=== PATIENT | female | born 1970 | race Caucasian/White ===

== ENCOUNTER 2016-11-04 10:17 | Inpatient (IN) ==
[2016-11-04] MEDS ORDERED: ZOFRAN IV ONE (10:44)
[2016-11-04] MEDS ORDERED: NS 1,000 ML IV ONE (10:44)
[2016-11-04 11:24] LABS: BASO% 0.1 % (0.0-0.8); EOS# 0.01 X1000 (0.0-0.7); EOS% 0.1 % (0.0-10.0); HEMOGLOBIN 7.8 g/dL (12.0-16.0); LYMPH# 0.17 X1000 (1.2-3.4); LYMPH% 2.1 % (20.5-51.1); MANUAL DIFF NEEDED? NO; MCH 24.8 PG (27-31); MCV 82.8 FL (81-99); MONO# 0.13 X1000 (0.11-0.59); MONO% 1.6 % (1.7-9.3); MPV 9.9 FL (7.4-10.4); NEUT% 96.1 % (42.2-75.2); PLT 266 X1000 (130-400); RBC 3.14 XMIL (4.2-5.4)
[2016-11-04 11:34] LABS: INR 1.28; PROTIME 13.6 Seconds (9.2-11.7)
[2016-11-04 11:42] LABS: CALCIUM 8.8 mg/dL (8.8-10.2); POTASSIUM 3.9 mmol/L (3.5-5.1); TOTAL BILIRUBIN 0.85 mg/dL (0.20-1.00); TOTAL PROTEIN 8.7 g/dL (6.3-8.3)
--- NOTE | 2016-11-04 12:05 | PROVIDER DOCUMENTATION ---
This chart was entered by Olayinka Menchaca Scribe, acting as scribe for Litzy Montano Jr, MD. HPI-General Adult - General Chief Complaint: Nausea/Vomiting Stated Complaint: VOMITING,NAUSEA,FOOT PAIN,CHILLS Time Seen by Provider: 11/04/16 10:27 Source: patient Allergies/Adverse Reactions: Patient Allergies Allergy/AdvReac Type Severity Reaction Status Date / Time vancomycin Allergy Intermediate NAUSEA/VOMI Verified 11/04/16 10:44 TING ciprofloxacin [From Cipro] Allergy Unknown NAUSEA/VOMI Verified 11/04/16 10:44 TING ciprofloxacin HCl * Allergy Unknown NAUSEA/VOMI Verified 11/04/16 10:44 [From Cipro] TING Home Medications: Home Medication List Medication Instructions Recorded Confirmed Last Taken Type Furosemide [Lasix] 40 mg PO DAILY 04/09/12 11/04/16 09/19/15 History Atenolol 50 mg PO DAILY 12/02/13 11/04/16 09/19/15 History Gabapentin [Neurontin] 0.5 - 1 mg PO HS 07/24/16 11/04/16 Unknown History Insulin Aspart [Novolog Flexpen] 1 unit SQ DIRECTED 07/24/16 11/04/16 Unknown History Insulin Glargine,Hum.rec.anlog 100 unit SQ AC + 07/24/16 11/04/16 Unknown History [Lantus Solostar] Pantoprazole [Protonix] 40 mg PO DIRECTED 07/24/16 11/04/16 Unknown History - History of Present Illness -Gen Adult Nature of Presenting Problems: patient is a 45 y/o F that presents to the ER with n/v and chills x 3 days. patient was in nuclear med getting outpatient bone scan on right foot when she vomited. patient denies fever, shortness of breath, or abdominal pain. She is under treatment for her diabetic foot by Dr.T Mendez Location of Pain/Injury: reports: generalized Quality of Pain: reports: aching Severity: reports: moderate Onset/Duration: reports: gradual, 3 days ago Timing: reports: still present, constant Context/Activities at Onset: reports: none Modifying Factors: improves with: nothing Associated Symptoms: reports: fever/chills, nausea, vomiting, weakness. denies : chest pain, cough, diarrhea, genitourinary problems, shortness of breath Similar Symptoms Previously?: No Recently seen or treated by another doctor?: Yes Review of Systems - Adult - REVIEW OF SYSTEMS - ADULT Constitutional: reports: chills. denies: fever Eyes: reports: no symptoms reported Ears, Nose, Mouth & Throat: reports: no symptoms reported Cardiovascular: denies: chest pain, orthopnea, palpitations, syncope Respiratory: denies: cough, shortness of breath, wheezing Gastrointestinal: reports: nausea, vomiting. denies: abdominal pain, constipation, diarrhea, rectal bleeding Genitourinary: denies: dysuria, frequency, hematuria Musculoskeletal: reports: muscle aches, muscle weakness Integumentary: reports: skin sores/ulcer. denies: mole changes, nail changes Neurological: reports: no symptoms reported Psychiatric: reports: no symptoms reported Endocrine: reports: no symptoms reported Hematologic/Lymphatic: reports: no symptoms reported Allergic/Immunologic: reports: no symptoms reported All Other Systems: Reviewed and Negative Past History - Adult - PAST MEDICAL HISTORY-ADULT Review of Records: reports: Old Records Reviewed, Nursing Assessment Review, Medications Reviewed Cardiovascular: reports: CHF, HTN, hyperlipidemia Respiratory: reports: COPD, sleep apnea Gastrointestinal: reports: GERD Genitourinary: reports: kidney disease Musculoskeletal: reports: chronic pain Endocrine/Immune: reports: Diabetes Diabetes Type: Type 2 Diabetes controlled by:: Insulin Dependent - PRIOR SURGERIES/PROCEDURES Surgical/Procedure History: reports: hysterectomy, BTL, - IMMUNIZATION STATUS Childhood Immunizations: See Nurse Assessment Flu Vaccine: See Nurse Assessment - FAMILY HISTORY Family History: reviewed, not pertinent - SOCIAL HISTORY Smoking: non-smoker Living Situation: family Physical Exam-General - PHYSICAL EXAM-ADULT Exam Limited by: morbid obesity Initial Vital Signs Reviewed: Yes - CONSTITUTIONAL General Appearance: alert, mild distress, obese - EYES Eyes: PERRL/EOMI, pink conjunctivae - HEAD, EARS, NOSE, MOUTH & THROAT HENMT: normocephalic/atraumatic, moist mucous membranes, normal ENT inspection - NECK Neck: full range of motion, normal inspection - RESPIRATORY Respiratory: lungs clear, normal breath sounds, no respiratory distress, no accessory muscle use - CARDIOVASCULAR Cardiovascular: regular rate, rhythm, no edema, no murmur - GASTROINTESTINAL (ABDOMEN) Abdominal Exam: normal bowel sounds, non tender, soft, no organomegaly, no pulsatile mass - MUSCULOSKELETAL Back Exam: no CVA tenderness, no vertebral tenderness Extremity: no pedal edema, no calf tenderness - SKIN Integumentary: warm/dry, other (diabetic foot ulcer to right foot( heel), wound is to the bone and has foul smell 4x4xcm) - NEUROLOGIC Neurologic: transplant surgeon II-XII nml as tested, no motor/sensory deficits - PSYCHIATRIC Psych/Mental Status: normal mood/affect, normal thought content, normal thought process, oriented x 3 Progress - PLAN OF CARE/RESULTS Progress/Plan/Lab Results: Vital Signs - 8 hr 11/04/16 10:22 Temperature 98.1 F Pulse Rate 81 Respiratory Rate 20 Blood Pressure 137/73 O2 Sat by Pulse Oximetry 98 Prior to patient arrival, spoke with Dr.T Mendez regarding patient, he would like her admitted to hospital by her PCP or Hospitalist. Orders Category Date Time Status 3 PHASE BONE SCAN [NM] Routine Exams 11/04/16 10:48 Ordered FLAT/UPRIGHT ABD/1 VIEW CHEST [RAD] Stat Exams 11/04/16 11:55 Ordered C REACTIVE PROT QUANT [CHEM] Stat Lab 11/04/16 11:05 Results CBC WITH ELECTRONIC DIFF [HEME] Stat Lab 11/04/16 11:05 Completed COMPREHENSIVE METABOLIC PANEL [CHEM] Stat Lab 11/04/16 11:05 Results LACTATE, PLASMA [CHEM] Stat Lab 11/04/16 10:44 Uncollected PROTIME WITH INR [COAG] Stat Lab 11/04/16 11:05 Completed 0.9% Sodium Chloride Inj [Ns] 1,000 ml Med 11/04/16 10:44 Discontinued IV 999 mls/hr Ondansetron [Zofran] Med 11/04/16 10:44 Discontinued 4 mg IV NOW ONE Vital Signs Temp Pulse Resp BP Pulse Ox 11/04/16 10:22 98.1 F 81 20 137/73 98 vancomycin Allergy (Intermediate, Verified 11/04/16 10:44) NAUSEA/VOMITING ciprofloxacin [From Cipro] Allergy (Unknown, Verified 11/04/16 10:44) NAUSEA/VOMITING ciprofloxacin HCl * [From Cipro] Allergy (Unknown, Verified 11/04/16 10:44) NAUSEA/VOMITING Furosemide [Lasix] 40 mg PO DAILY 04/09/12 Atenolol 50 mg PO DAILY 12/02/13 Gabapentin [Neurontin] 0.5 - 1 mg PO HS 07/24/16 Insulin Aspart [Novolog Flexpen] 1 unit SQ DIRECTED 07/24/16 Insulin Glargine,Hum.rec.anlog [Lantus Solostar] 100 unit SQ AC + HS 07/24/16 Pantoprazole [Protonix] 40 mg PO DIRECTED 07/24/16 Laboratory 11/04/16 11/04/16 11/04/16 11:05 11:05 11:05 WBC 8.01 RBC 3.14 L Hgb 7.8 L Hct 26.0 L MCV 82.8 MCH 24.8 L MCHC 30.0 L RDW Std Deviation 16.4 H Plt Count 266 MPV 9.9 Immature Gran % (Auto) 0.0 Neut % (Auto) 96.1 H Lymph % (Auto) 2.1 L [place] % (Auto) 1.6 L Eos % (Auto) 0.1 Baso % (Auto) 0.1 Immature Gran # (Auto) 0.00 Neut # (Auto) 7.69 H Lymph # (Auto) 0.17 L [place] # (Auto) 0.13 Eos # (Auto) 0.01 Baso # (Auto) 0.01 PT 13.6 H INR 1.28 Sodium 132 L Potassium 3.9 Chloride 94 L Carbon Dioxide 19 L Anion Gap 19 BUN 66 H Creatinine 3.1 H Estimated GFR/1.73 m2 16 BUN/Creatinine Ratio 21 Glucose 181 H Calculated Osmolality 288 Calcium 8.8 Total Bilirubin 0.85 AST 13 ALT 12 Alkaline Phosphatase 99 Total Protein 8.7 H Albumin 3.0 L Globulin 5.7 Albumin/Globulin Ratio 0.5 Result Diagrams: 11/04/16 11:05 11/04/16 11:05 - CONSULTS/PCP/HOSPITALIST Notification #1 *Consult/PCP/Hospitalist*: Time Discussed: 11:57 Consult Disposition: Admit Departure - Departure Time of Disposition Decision: 12:03 DIAGNOSIS: Chills, Weakness Diabetic foot ulcer Qualifiers: Diabetic foot ulcer location: heel Diabetes mellitus type: type 2 Laterality: right Non-pressure ulcer stage: with necrosis of bone Qualified Code(s): E11.621 - Type 2 diabetes mellitus with foot ulcer; L97.414 - Non-pressure chronic ulcer of right heel and midfoot with necrosis of bone Nausea & vomiting Qualifiers: Vomiting type: unspecified Vomiting Intractability: unspecified Qualified Code( s): R11.2 - Nausea with vomiting, unspecified Morbid obesity Qualifiers: Obesity type: unspecified obesity type Qualified Code(s): E66.01 - Morbid ( severe) obesity due to excess calories Disposition: ADMITTED INPATIENT 09 Certified Medical Emergency: Emergent Condition: Stable Referrals and Follow-Ups: Michele Ravi MD [Primary Care Provider] - - Critical Care Note This patient required my direct & personal management of CC.: No This chart was documented by the indicated scribe, (Olayinka Menchaca, Scribe) and accurately reflects the services I performed and decisions made by me, Litzy Montano Jr, MD, as attested by the provider's signature.
[2016-11-04] MEDS ORDERED: KEFZOL 1 GM/D5W 1 GM/50 ML IVPB IV SCH (13:00)
--- NOTE | 2016-11-04 13:27 | Diag Imaging Result Document ---
PROCEDURE NAME: FLAT/UPRIGHT ABD/1 VIEW CHEST - 11/04/2016 FLAT AND UPRIGHT ABDOMEN: FINDINGS: The bowel gas pattern is unremarkable. The spleen appears enlarged measuring over 19 cm in superior inferior dimension. It appears to have increased since the previous study of 03/07/2016 from over 15 cm previously. IMPRESSION: Worsening splenomegaly. AP CHEST: FINDINGS: The inspiration is suboptimal. Overall, considering differences in inspiration and technique there has been no significant change since the previous study of 03/07/2016. There has been no significant change since 07/24/2016. IMPRESSION: Stable chest.
[2016-11-04 14:32] LABS: IRON SATURATION 11 %; TIBC 139 ug/dL; TOTAL IRON 15 ug/dL (49-151); UNBOUND IRON 124 ug/dL (112-346)
--- NOTE | 2016-11-04 15:21 | Diag Imaging Result Document ---
PROCEDURE NAME: 3 PHASE BONE SCAN - 11/04/2016 THREE-PHASE BONE SCAN: The patient was injected with 25.9 mCi of technetium-99m MDP and 3-phase scanning was performed over the feet. There is increased flow activity to the right foot with particularly increased activity in the tarsometatarsal region. There is also some increased activity present in the tarsometatarsal region of the left foot. The same pattern is repeated on the static bone images. There is particularly intense increased radiotracer accumulation at the base of the 5th metatarsal extending to some degree of the shaft. Given the appearance on the plain radiographs of 10/24/2016, it is very likely that this is due to osteomyelitis. In addition, there is some increased static bone activity present in the plantar surface of the right calcaneus which may be due to plantar fasciitis. The possibility of localized osteomyelitis in this area cannot be excluded particularly given the presence of an ulcer in this location. None of these findings were present on the previous study of 12/24/2011. IMPRESSION: Findings suspicious for osteomyelitis in the bases of the metatarsal of the right foot, particularly the 5th metatarsal.
[2016-11-04] MEDS ORDERED: TYLENOL PO PRN (15:37)
[2016-11-04] MEDS ORDERED: DUONEB (A & A) INH PRN (15:37)
[2016-11-04 16:02] LABS: URINE SOURCE CLEAN CATCH
[2016-11-04 16:08] LABS: BILIRUBIN URINE NEGATIVE (NEGATIVE); BLOOD URINE MODERATE (NEGATIVE); COLOR YELLOW; GLUCOSE URINE NEGATIVE (NEGATIVE); LEUKOCYTES URINE TRACE (NEGATIVE); NITRITE URINE NEGATIVE (NEGATIVE); PROTEIN URINE 70 mg/dL (NEGATIVE); SP GRAVITY URINE 1.015; TURBIDITY URINE HAZY (CLEAR); UR EPITHELIAL CELLS >10 /HPF (<10); URINE BACTERIA 1+ /HPF; URINE CULTURE NEEDED? YES; URINE MICRO REVIEW NEEDED? YES; URINE RBC TNTC /HPF (<10); URINE WBC <10 /HPF (<10); UROBILINOGEN URINE NORMAL (NORMAL)
[2016-11-04] MEDS: HUMULIN R SUBQ SCH ×2 (17:44→22:39)
[2016-11-04] MEDS: CARAFATE LIQUID PO SCH ×2 (17:49→22:40)
[2016-11-04] MEDS: NS 1,000 ML IV SCH (17:50)
--- NOTE | 2016-11-04 18:19 | HISTORY AND PHYSICAL ---
PRIMARY CARE PROVIDER: Michele Ravi MD CHIEF COMPLAINT: Nausea, vomiting, foot pain, abdominal pain, and chills for 3 days. HISTORY OF PRESENT ILLNESS: Ms. Yolanda Quiros is a 45-year-old, morbidly obese, female with a history of Pickwickian syndrome, congestive heart failure, severe pulmonary hypertension, and type 2 diabetes who presented today for right foot imaging that was ordered by Dr. Castro Mendez. She has been following him for a right heel ulcer that she has had since June of 2016. The foot has a foul smell to it. It is very deep and Stage IV. Imaging has not resulted yet on the right heel. She also complains of right upper and left upper quadrant abdominal pain. She has had vomiting that she states was brown in color but not coffee ground. Over the last 3 days she has had some chills but has not checked to see if she has had a fever. Her white blood cell count is normal. She is afebrile at this time. She does have chronic kidney disease and appears to be mildly dehydrated. We will do a short run of IV fluids. We will reconsult Dr. Mendez to evaluate the right heel, as it does have a foul smell. It appears that in March, she did have a HIDA scan on her gallbladder and apparently there was no filling of the gallbladder. Also the ejection fraction was abnormally low 30s less than 35%, but she continues to have her gallbladder. Abdominal x-ray does show that she has enlarging splenomegaly. Will admit to the medical floor for further work up. PAST MEDICAL HISTORY: Pulmonary hypertension with echocardiogram last being June, showing pulmonary pressure of 47 mmHg and an ejection fraction of 60-65% and normal diastolic function, although in 2013 she did have a pulmonary pressure of 75. Diabetes mellitus type 2, insulin dependent, peripheral neuropathy, history of osteomyelitis of the right 5th metatarsal, chronic kidney disease Stage 3, anemia of chronic disease, hypertension, morbid obesity with Pickwickian syndrome, chronic obstructive pulmonary disease with obstructive sleep apnea. Uses a BiPAP at home. Gastroesophageal reflux disease with irritable bowel, hypertension, and chronic pain syndrome. SURGICAL HISTORY: Ovarian cyst removal, hysterectomy, tubal ligation, right foot incision and drainage, section. SOCIAL HISTORY: Denies tobacco, alcohol, or illicit drug use. FAMILY HISTORY: Denies. REVIEW OF SYSTEMS: Fourteen point review of systems were complete and all were negative, except for those mentioned above history of present illness. ALLERGIES: Vancomycin and ciprofloxacin. HOME MEDICATIONS: Atenolol 50 mg p.o. daily. Lasix 40 mg p.o. daily, Neurontin 600 mg p.o. nightly, NovoLog insulin, Lantus insulin, Protonix p.o. daily. LABORATORY DATA: White blood cells 8000, hemoglobin 7.8, hematocrit 26.0, platelet count 266,000. INR is 1.28. Sodium 132, potassium 3.9, BUN 66, creatinine 3.1, glucose 181, calcium 8.8, bilirubin 0.85. AST 13, ALT 12. CRP is 223. Total protein 8.7, albumin 3.0. IMAGING: Abdominal x-ray; worsening splenomegaly. Chest x-ray; stable chest. Right foot x-ray; pending. PHYSICAL EXAMINATION: VITAL SIGNS: Temperature 98.1 degrees, heart rate 81, respiratory rate 20, blood pressure 137/73, O2 saturation 98% on room air. She is 5 feet, 4 inches tall, 325 pounds. BMI 55.8. GENERAL: Ms. Quiros is a 45-year-old, morbidly obese, female. She is in no acute distress. Able to answer questions appropriately. HEENT: Atraumatic, normocephalic. Pupils equal, round, reactive to light. Extraocular movements intact. Mucous membranes are dry. NECK: Obese. There are no carotid bruits. Unable to assess for neck distention. CARDIOVASCULAR: S1, S2. Regular rate and rhythm. No rubs, gallops, or murmurs. PULMONARY: Clear to auscultation. Bilateral breath sounds. No accessory muscle use or work of breathing noted. GASTROINTESTINAL: Soft, obese. Right upper and left upper quadrant abdominal pain. Positive bowel sounds x4. Last bowel movement today. EXTREMITIES: Obese. +3 dorsalis pedal pulses. Right heel deep tissue ulceration with foul smell. SKIN: Warm, dry, intact, except for right heel. NEUROLOGICAL: Alert and oriented x4. Moves all extremities equally. ASSESSMENT AND PLAN: 1. Right heel diabetic ulcer. Wound care is consulted. Dr. Mendez has been consulted, as he has been following her for outpatient treatment. Her last culture in June was positive for Strep agalactiae. She has been started on Kefzol. Cultures have been obtained. Blood cultures also have been obtained. 2. Abdominal pain with nausea, intractable nausea, vomiting x3 days. She does have right upper and left upper quadrant pain. She has got worsening splenomegaly on the left. There is question as to whether her gallbladder is functional enough. Again, Dr. Mendez has been consulted for the right heel and will ask to followup. Will continue her on Protonix and have started Carafate. 3. Acute kidney injury on chronic kidney disease stage 3. We will do some slow IV fluid hydration, but only carefully given her history of pulmonary hypertension. 4. History of severe pulmonary hypertension. Has stabilized more with the last echocardiogram in June, revealing normal systolic and normal diastolic function with pulmonic systolic pressure of 47 mmHg. 5. Chronic obstructive pulmonary disease with obstructive sleep apnea. Wears CPAP at night. No exacerbation noted. 6. Hypertension. Continue home medications. 7. Hyperlipidemia. Continue home medications. 8. Diabetes mellitus type 2. Continue with sliding scale insulin. Pattern blood glucoses. 9. Morbid obesity with Pickwickian syndrome. Diet discussed. Exercise regimen discussed. Currently she has been wheelchair bound given her right heel ulceration. 10. Anemia of chronic disease. Go ahead and do anemia labs, check stool and emesis for blood given her abdominal pain. 11. Peripheral neuropathy. Continue home medications. 12. Deep venous thrombosis prophylaxis. Will do heparin. Dictated by ARLENE Marshall for Aurelio Schmidt MD cc: ARLENE Marshall MD
[2016-11-04] MEDS: SANTYL OINT TOP SCH (19:00)
[2016-11-04] MEDS: ZOSYN 2.25 GM/NS 2.25 GM/50 ML IVPB IV SCH (19:13)
[2016-11-04] MEDS ORDERED: CUBICIN (FOR INPATIENT USE) 600 MG in NS 100 ML IV SCH (21:45)
[2016-11-04] MEDS: PROTONIX IV SCH (22:40)
[2016-11-04] MEDS: SODIUM CHLORIDE 0.9% INJ SCH (22:40)
[2016-11-04] MEDS: NEURONTIN PO SCH (22:41)
--- NOTE | 2016-11-04 22:50 | CONSULTATION ---
DATE OF CONSULTATION: 11/04/2016 HISTORY OF PRESENT ILLNESS: This is a 45-year-old diabetic female, well known to me. I have been following the right foot wound for several months now. She had been undergoing weekly debridements in the office in the wound clinic for this. We had plans to obtain a bone scan and repeat LEAs today, but she had been feeling ill over the weekend, with some nausea, vomiting, upper abdominal discomfort, and became sick in Nuclear Medicine and was sent to the emergency department for further workup. She has had chills, but no fevers. MEDICAL HISTORY: Diabetes, hypertension, obesity. I believe she has sleep apnea and chronic kidney disease. SURGICAL HISTORY: Negative for peripheral vascular surgery. SOCIAL HISTORY: Nonsmoker. Currently lives at home. Does have I suspect some social situation. She is always relatively unkempt. FAMILY HISTORY: Noncontributory. REVIEW OF SYSTEMS: Ten point negative, except for what is mentioned under HPI. PHYSICAL EXAMINATION: Vital Signs: Her temperature is 98.1 degrees, pulse 81, blood pressure 137/73, oxygen saturation 98% on room air. General: She is alert, in no acute distress. She is 325 pounds, 5 foot 4. HEENT: No scleral icterus. Cardiovascular: Normal rate, regular rhythm. Pulmonary: No increased work of breathing. Abdomen: Soft, nontender, nondistended. Extremities: Right calcaneal wound has beefy granulation tissue around the bed, but there is necrotic tissue in the base. There is no cellulitis extending up her foot, and it is otherwise well-perfused. I do not see any other new wounds on her right foot. There is 2+ lower extremity edema bilaterally. LABORATORY STUDIES: White count 8, hematocrit 26, platelets 266,000. INR is 1.28. Creatinine 3.1, glucose is 181. Bilirubin is normal at 0.85. AST and ALT are normal at 13 and 12. Alkaline phosphatase 99. CRP is elevated at 220. Urinalysis shows some trace leukocytes. Her nuclear medicine bone scan showed some changes concerning for osteomyelitis of the calcaneus and 5th metatarsal head on the same foot. ASSESSMENT AND PLAN: This is a 45-year-old female diabetic with chronic kidney disease, obesity, with a chronic wound, with persistent and recurrent necrosis in the bed of the wound, despite multiple excisional debridements as an outpatient. We plan to go to the operating room tomorrow. She is on antibiotics. I have started Zosyn. She has an allergy to penicillin and Cipro, but we will treat her with Zosyn in the meantime at a renally-dosed dose. I appreciate the hospitalist service for help with management of this patient's other medical issues. Will need to engage Infectious Disease for concerns for osteomyelitis. It is possible that this has been the driving focus for the recurrent necrosis of the wound bed. Unclear what is causing her nausea. She does have a urinary tract infection. I have been told that she has nonfilling on a HIDA scan of her gallbladder. We may need to get a gallbladder ultrasound at some point. Her LFTs are normal right now, and I suspect this is more just systemic illness from her chronic medical problems and diabetic foot infection. We will continue to follow along. cc: Haritha Mendez MD
[2016-11-05] MEDS: ZOSYN 2.25 GM/NS 2.25 GM/50 ML IVPB IV SCH ×4 (00:22→19:21)
[2016-11-05] MEDS: CARAFATE LIQUID PO SCH ×3 (05:54→19:21)
[2016-11-05] MEDS: ZOFRAN IV PRN (06:01)
[2016-11-05] MEDS: HUMULIN R SUBQ SCH ×4 (06:04→21:59)
[2016-11-05 06:33] LABS: HEMATOCRIT 21.8 % (37.0-47.0); HEMOGLOBIN 6.5 g/dL (12.0-16.0); IMM GRAN# 0.03 X1000 (0.0-0.04); IMM GRAN% 0.3 % (0.0-0.5); LYMPH# 0.54 X1000 (1.2-3.4); LYMPH% 5.4 % (20.5-51.1); MANUAL DIFF NEEDED? YES; MCH 24.8 PG (27-31); MCHC 29.8 g/dL (33-37); MCV 83.2 FL (81-99); MONO# 0.58 X1000 (0.11-0.59); MONO% 5.8 % (1.7-9.3); MPV 9.9 FL (7.4-10.4); NEUT% 88.5 % (42.2-75.2); PLT 223 X1000 (130-400); RBC 2.62 XMIL (4.2-5.4)
[2016-11-05 06:58] LABS: BANDS 4 % (0-1); LYMPHS 6 % (21-51)
[2016-11-05 07:10] LABS: ALBUMIN 2.6 g/dL (3.5-5.0); CALCIUM 8.7 mg/dL (8.8-10.2); MAGNESIUM 2.1 mg/dL (1.5-2.7); POTASSIUM 4.1 mmol/L (3.5-5.1); TOTAL BILIRUBIN 0.44 mg/dL (0.20-1.00); TOTAL PROTEIN 7.2 g/dL (6.3-8.3)
[2016-11-05] MEDS: PROTONIX IV SCH ×2 (08:30→21:59)
[2016-11-05] MEDS: SODIUM CHLORIDE 0.9% INJ SCH (08:30)
[2016-11-05] MEDS: TENORMIN PO SCH (08:31)
[2016-11-05] MEDS: SANTYL OINT TOP SCH (08:31)
[2016-11-05] MEDS ORDERED: VERSED ONE (09:21)
[2016-11-05] MEDS ORDERED: KETAMINE (DOSE) ONE (09:22)
[2016-11-05] MEDS ORDERED: MARCAINE 0.25% PF ONE (09:28)
[2016-11-05] MEDS ORDERED: MARCAINE 0.25% PF/EPI 1:200,000 ONE (09:28)
[2016-11-05] MEDS ORDERED: XYLOCAINE 1%/EPI 1:100,000 ONE (09:28)
[2016-11-05] MEDS ORDERED: XYLOCAINE 1% ONE (09:29)
--- NOTE | 2016-11-05 10:11 | PROGRESS NOTE ---
DATE: 11/05/2016 SUBJECTIVE: Feels better. No more nausea or vomiting. No pain in her foot. OBJECTIVE: Vital Signs: Temperature is 97.7 degrees, pulse 61, blood pressure 135/68, oxygen saturation 100% on room air. General: She is alert, in no acute distress. Cardiovascular: Normal rate, regular rhythm. Pulmonary: She is on room air with no increased work of breathing. Extremities: She has dressing in place on her right foot and is clean. There is no cellulitis extending up her legs, but she does have 1+ to 2+ edema in bilateral lower extremities. Those are well perfused. LABS: White count 10, hematocrit is down to 21. INR is 1.28, creatinine is 3.2. Bilirubin 0.44, AST and ALT are 11 and 5, alkaline phosphatase 75. ASSESSMENT/PLAN: This is a 45-year-old female with longstanding right calcaneal diabetic wound. Bone scan shows signs of osteomyelitis and I suspect this is the case given the depth of the wound. She has recurrent necrosis in the bed of the wound despite multiple serial debridements as an outpatient. Will plan to go the operating room today to explore the wound and debride more aggressively, and then will make recommendations as far as wound care going forward. Dr. English had been engaged. She is going to need long-term antibiotics for osteomyelitis. She does have an allergy to vancomycin and Cipro, and I have continued her on Zosyn while here at a renally-dosed level. We will try to repeat her CROW's. The contrast exam is not an option given her renal dysfunction, but her feet seem well perfused on exam. Previous CROW's were limited by the size of her legs and noncompressibility of the vessels. cc: Haritha Mendez MD
[2016-11-05] MEDS ORDERED: OFIRMEV 1000 MG/ISOTONIC SOLN 1,000 MG/100 ML BOTTLE ONE (10:33)
--- NOTE | 2016-11-05 12:09 | OPERATIVE NOTE ---
PROCEDURE DATE: 11/05/2016 DATE OF OPERATION: 11/05/2016. PREOPERATIVE DIAGNOSIS: Necrotic diabetic wound of the right calcaneus. POSTOPERATIVE DIAGNOSIS: Necrotic diabetic wound of the right calcaneus. PROCEDURES PERFORMED: Excisional debridement of right calcaneal wound 4 x 5 cm in transverse dimension, 2 cm deep down to and including the level of the bone. ESTIMATED BLOOD LOSS: 20 mL. SPECIMENS: Necrotic tissue from wound. INDICATIONS: This 45-year-old diabetic female, who is obese with chronic kidney disease has had a longstanding right calcaneal wound. She has undergone multiple debridements as an outpatient of this wound with recurrent necrosis of the bed. Bone scan shows osteomyelitis. She is admitted now for a GI illness and excisional debridement of the wound for source control and to facilitate wound healing was indicated. ANESTHESIA: Monitored intravenous anesthesia. DRAINS: [place] drain left in the deep space of the foot. OPERATIVE FINDINGS: There was necrotic tissue circumferential in the wound bed. There was minimal purulence and healthy bleeding tissue noted after debridement. This extended down to the level of the periosteum of the bone of the calcaneus and into the deep space of the foot through the level of the plantar fascia. OPERATIVE NOTE: Risks, benefits, alternatives discussed with patient. She consented to the procedure. She was seen in the preoperative area and procedure to be performed was confirmed. Surgical site was marked. She was taken to the operating room. Intravenous anesthesia was administered. Her right foot was prepped with Betadine solution. She is on pre incisional scheduled antibiotics, and these were confirmed. After the wound was prepped with Betadine and draped in the usual fashion, a time-out was performed and all agreed on the procedure to be performed. Using a combination of scalpel and scissors, we excised all necrotic tissue back to healthy bone. There is some overlying necrotic tissue of the calcaneus. We used rongeur, forceps and a curette to debride this back circumferential to healthy bone. We sent all the specimen together. We obtained hemostasis with electrocautery. There was an area that probed anterior to the calcaneus through the webbing of the plantar fascia that entered the deep spaces of the foot. There was some scant amount of purulence here. As such, we left a [place] drain in this cavity and secured this wound edge with a 3-0 nylon suture to facilitate ongoing drainage. There is no evidence of necrosis here. After confirming hemostasis, we irrigated the wound. I packed it with a saline Kerlix and a loose Kerlix Mickey wrap. She tolerated it well. Transferred to PACU in good condition. No family was available upon attempts to contact. Will continue IV antibiotics for treatment of osteomyelitis and with severe infection of the diabetic foot wound. cc: Haritha Mendez MD
[2016-11-05] MEDS: NS 1,000 ML IV SCH (12:51)
--- NOTE | 2016-11-05 13:45 | CONSULTATION ---
DATE OF CONSULTATION: 11/05/2016 CONCLUSION: Patient has cellulitis and osteomyelitis of the right foot. RECOMMENDATIONS: Pending culture results, I agree with treating the patient with a combination of daptomycin and Zosyn. I have modified the dose of daptomycin because of the patient's renal failure. The dose of Zosyn already has been modified. PRESENT ILLNESS: The patient tells me that for approximately 3-4 days prior to admission, she was having increasing right foot pain, abdominal pain, nausea, vomiting, fever, and chills. Her laboratory studies show a CBC with a white count of 10,060, hemoglobin 6.5, and platelet count 223,000. Creatinine is 3.2. GFR is 16. Liver function studies are normal. Urinalysis showed red blood cells, but no white cells or bacteria. Gram stain taken from the patient's foot shows Gram-positive cocci and Gram-negative rods. The bone scan showed evidence of osteomyelitis in the foot. PAST MEDICAL HISTORY/REVIEW OF SYSTEMS: HEENT: The patient denies difficulty hearing or seeing. Neck: No stiffness. Respiratory: No cough or shortness of breath. Cardiac: No chest pain or palpitations. Gastrointestinal: No nausea, vomiting, or diarrhea. Neurologic: The patient does have neuropathy in her legs manifested by a pains in both legs. The patient walks with a cane and limps a little bit. Endocrine: Patient has diabetes, but not thyroid disease. Hematologic: No history that the patient is aware of that she has anemia or a bleeding tendency. Integument: No rash noted. The remainder of the patient's review of systems was completed and was negative. 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 She delivered her child by section. Patient has had a tubal ligation. PREVIOUS HOSPITALIZATIONS AND OPERATIONS: She has had an ovarian cyst removed, tubal ligation, and section. The patient has had the surgery on her right foot prior to the current surgery. Patient has had an ovarian cysts removed. The patient has had surgery for right foot metatarsal osteomyelitis. INFECTIOUS DISEASE HISTORY: Positive for breast abscess and a urinary tract infection. Negative for pneumonia. MEDICAL DISEASES: Positive for pulmonary hypertension, diabetes mellitus, peripheral neuropathy, anemia of chronic disease, hypertension, morbid obesity, chronic obstructive pulmonary disease, and sleep apnea. Also, the patient has gastroesophageal reflux disease, irritable bowel, hypertension, and chronic pain syndrome. SOCIAL HISTORY: [place] She does not smoke cigarettes, drink alcoholic beverages, or abuse drugs. DRUG ALLERGIES: The patient has allergies to vancomycin and ciprofloxacin. PHYSICAL EXAMINATION: Vital Signs: Temperature is 97.7 degrees, pulse 66, respirations 14, blood pressure 135/68. The patient weighs 325 pounds. General: This is an obese, middle-aged female. She is in no acute distress. Head, eyes, ears, nose, and throat: She can hear my spoken words and see near objects. No drainage noted from the nose or ears. Neck: No meningismus. Lungs: Clear to auscultation. Cardiovascular: Heart rate is regular. Peripheral pulses in the left foot and the arms were palpable. I was unable to palpate a distal pulse in the patient's right foot because there was a large dressing around the foot and ankle. Abdomen: Soft and nontender. Neurologic: Patient is awake. The patient is lethargic. She can move her extremities. There is no tremor. Her sensation is intact to touch. Integument: No rash noted. HOME MEDICATIONS: Atenolol, Lasix, Neurontin, insulin, and Protonix. Thank you for the consult. cc: Pola English MD
--- NOTE | 2016-11-05 17:20 | PROGRESS NOTE ---
DATE: 11/05/2016 SUBJECTIVE: Ms. Quiros says her head feels kind of fuzzy and otherwise no nausea, no pain. She does not really like the food, is not eating much.Vital signs: Temperature 98.5 degrees, pulse 70, respirations 14, blood pressure 150/72. Lungs: Are clear in all lung berrios. Cardiovascular: Regular rhythm and rate without murmur or S3. Abdomen: Soft. Skin: Is warm and dry. Weight 342 pounds. Urine output has been well over 1.5 L. LAB: White count 10,060, hematocrit 21, platelet count 223,000. Sodium 132, potassium 4.1, chloride 97, BUN 71, creatinine 3.2, blood sugars 259, 267, 238. ASSESSMENT AND PLAN: 1. Patient with cellulitis and osteomyelitis of the right foot. Cultures pending. Patient is treated with combination of daptomycin and Zosyn. Dr. English is follow. Modified the dose of daptomycin because of patient's renal failure. Dose of Zosyn has been already modified. Continue present therapy. 2. She had necrotic diabetic wound of the right calcaneus was debrided by Dr. Mendez. Put her back on diabetic diet. 3. Diabetes mellitus type 2. Will follow blood sugars. She is on a sliding scale. Review of her orders I do not see any change at this point. MEDICATIONS: She is on Zosyn 2.25 mg IV q.6, Carafate 1 g q.6 hours, Protonix 40 mg IV q.12 hours, Zofran 4 mg IV q.4 hours p.r.n., Neurontin 300 mg at bedtime, daptomycin 1 g q.48 hours, Tenormin 50 mg p.o. daily. cc: Fred Ashby MD
[2016-11-05] MEDS: NEURONTIN PO SCH (21:59)
[2016-11-06] MEDS: ZOSYN 2.25 GM/NS 2.25 GM/50 ML IVPB IV SCH ×3 (01:11→12:26)
[2016-11-06] MEDS: CARAFATE LIQUID PO SCH ×4 (04:14→17:27)
[2016-11-06] MEDS: HUMULIN R SUBQ SCH ×4 (06:17→20:25)
[2016-11-06] MEDS: ZOFRAN IV PRN (06:20)
[2016-11-06 06:27] LABS: BASO% 0.4 % (0.0-0.8); HEMATOCRIT 25.6 % (37.0-47.0); HEMOGLOBIN 7.5 g/dL (12.0-16.0); LYMPH# 0.26 X1000 (1.2-3.4); LYMPH% 11.4 % (20.5-51.1); MANUAL DIFF NEEDED? YES; MCH 24.6 PG (27-31); MCHC 29.3 g/dL (33-37); MCV 83.9 FL (81-99); MONO# 0.01 X1000 (0.11-0.59); MONO% 0.4 % (1.7-9.3); MPV 10.5 FL (7.4-10.4); NEUT% 87.8 % (42.2-75.2); PLT 291 X1000 (130-400); RBC 3.05 XMIL (4.2-5.4)
[2016-11-06 06:30] LABS: ALBUMIN 2.8 g/dL (3.5-5.0); CALCIUM 8.8 mg/dL (8.8-10.2); POTASSIUM 3.8 mmol/L (3.5-5.1); TOTAL BILIRUBIN 0.4 mg/dL (0.20-1.00); TOTAL PROTEIN 8.7 g/dL (6.3-8.3)
[2016-11-06 06:49] LABS: BANDS 8 % (0-1); LYMPHS 10 % (21-51); MONO 2 % (1-9)
[2016-11-06 06:50] LABS: HYPOCHROM 2+
[2016-11-06] MEDS: NORCO-7.5 PO PRN ×2 (08:53→15:29)
[2016-11-06] MEDS: TENORMIN PO SCH (08:54)
[2016-11-06] MEDS: SODIUM CHLORIDE 0.9% INJ SCH (08:55)
[2016-11-06] MEDS: PROTONIX IV SCH ×2 (08:55→20:27)
[2016-11-06] MEDS: SANTYL OINT TOP SCH (09:01)
--- NOTE | 2016-11-06 09:53 | PROGRESS NOTE ---
DATE: 11/06/2016 SUBJECTIVE: No more nausea or vomiting. Started to have a little bit of pain in her foot. She says she has had some shortness of breath this morning as well but otherwise no issues. OBJECTIVE: Vital Signs: Temperature is 97.9, pulse 83, blood pressure 143/63, oxygen saturation 100% on 2 L nasal cannula. General: She is alert, no acute distress. Extremities: Her right foot dressing has a minimal amount of drainage on the dressing but otherwise her toes are well perfused without any cellulitis extending up the leg. Laboratory Data: White count down to 2, hematocrit of 25. Creatinine is 2.8 which is down. ASSESSMENT AND PLAN: This is an obese, diabetic lady with a long-standing wound on her right heel and bone scan evidence of osteomyelitis. She admitted with some gastrointestinal duress and was taken yesterday for debridement of her foot. There was no gross purulence here. There was some dark necrotic tissue that was debrided back to healthy bleeding tissue. There was exposed calcaneal bone but it is of relatively good quality. She is on long-term antibiotics. Will need long-term intravenous antibiotics for treatment of osteomyelitis. We will evaluate her wound today and tomorrow, and make plans for possible wound VAC placement if the wound remains clean. We will continue to follow along. I appreciate the medicine service helping with all of her other comorbid conditions. cc: Haritha Mendez MD
--- NOTE | 2016-11-06 16:49 | PROGRESS NOTE ---
DATE: 11/06/2016 CONCLUSION: The patient has cellulitis and osteomyelitis of the right foot. The infection extended to the calcaneus bone. The patient is growing from her right foot 2 gram negative rods. A blood culture is growing coag neg staph which is a contaminant. RECOMMENDATIONS: Pending the results, I have switched the patient to cefepime. She was on daptomycin and Zosyn. I have put in a consult for [facility] to supply the patient's home IV antibiotic. The patient has had difficulties with Cipro in the past, mainly nausea and vomiting, and for an infection like the patient has I feel more comfortable using an IV antibiotic rather than p.o. Cipro. Possibly when she is done with her 6 weeks of IV antibiotics and if she can tolerate Levaquin, I may put her on that for a long period of time because it is extremely difficult to heal heels. PHYSICAL EXAMINATION: Vital Signs: Temperature is 97.8 degrees, pulse 70, respirations 20, blood pressure 152/64. General: This is an obese, middle-aged female who is in no acute distress. Lungs: Clear to auscultation. Cardiovascular: Regular heart rate. Abdomen: Soft and nontender. Extremities: The right foot and ankle had a dressing around them. The dressing is intact. LAB AND X-RAY: There is no new x-ray. The patient's CBC today showed a white count of 2,290, hemoglobin is 7.5, and platelet count is 291,000. Creatinine is 2.8. GFR is 18. There is no new x-ray for today. Previous bone scan did show osteomyelitis as well. ASSESSMENT AND PLAN: The patient has a gram-negative jose cruz infection involving the right foot, extending to the calcaneus; therefore, by definition, she has osteomyelitis of the calcaneus. I plan to ask Dr. Mendez to put in a Patel catheter rather than a PICC because the patient's kidney function is such that she may need hemodialysis at some time and it would be better to avoid using her arm veins for that reason. I have put in a consult for [facility] to supply the patient's home IV cefepime. The patient's comorbidities include she has morbid obesity, she has diabetes mellitus, and peripheral neuropathy. Patient also has COPD and sleep apnea. cc: Pola English MD [facility]
[2016-11-06] MEDS: MAXIPIME 1 GM/NS 1 GM/50 ML IVPB IV SCH (17:18)
[2016-11-06] MEDS: NEURONTIN PO SCH (20:27)
[2016-11-06] MEDS ORDERED: CUBICIN IV SCH (23:00)
[2016-11-06] MEDS ORDERED: NS IV SCH (23:00)
[2016-11-07] MEDS: CARAFATE LIQUID PO SCH ×4 (00:01→19:43)
--- NOTE | 2016-11-07 03:38 | PROGRESS NOTE ---
DATE: 11/06/2016 ADDENDUM: Dr. Mendez just removed the patient's dressing from her heel. There is still an odor to the heel; however, the tissue in the wound all looks beefy red. I did not see any purulence and I did not see any necrotic tissue. The wound does extend down to the calcaneus. It is easily palpated. cc: Pola English MD
[2016-11-07] MEDS: HUMULIN R SUBQ SCH ×4 (06:12→20:24)
[2016-11-07] MEDS: MAXIPIME 1 GM/NS 1 GM/50 ML IVPB IV SCH ×2 (06:12→19:48)
[2016-11-07 07:35] LABS: BASO% 0.1 % (0.0-0.8); EOS# 0.02 X1000 (0.0-0.7); EOS% 0.2 % (0.0-10.0); HEMATOCRIT 21.7 % (37.0-47.0); HEMOGLOBIN 6.3 g/dL (12.0-16.0); IMM GRAN# 0.02 X1000 (0.0-0.04); IMM GRAN% 0.2 % (0.0-0.5); LYMPH# 0.58 X1000 (1.2-3.4); MANUAL DIFF NEEDED? YES; MCH 24.4 PG (27-31); MCV 84.1 FL (81-99); MONO# 0.38 X1000 (0.11-0.59); MONO% 4.6 % (1.7-9.3); MPV 10.4 FL (7.4-10.4); NEUT% 87.9 % (42.2-75.2); PLT 219 X1000 (130-400); RBC 2.58 XMIL (4.2-5.4)
[2016-11-07 08:16] LABS: ALBUMIN 2.7 g/dL (3.5-5.0); CALCIUM 8.6 mg/dL (8.8-10.2); POTASSIUM 3.7 mmol/L (3.5-5.1); TOTAL BILIRUBIN 0.35 mg/dL (0.20-1.00); TOTAL PROTEIN 7.5 g/dL (6.3-8.3)
[2016-11-07 08:41] LABS: LYMPHS 4 % (21-51); MONO 6 % (1-9)
[2016-11-07] MEDS: TENORMIN PO SCH (08:42)
[2016-11-07] MEDS: SANTYL OINT TOP SCH (09:41)
--- NOTE | 2016-11-07 10:24 | PROGRESS NOTE ---
DATE: 11/07/2016 SUBJECTIVE: No pain in her foot. No other breathing or GI problems. Dressing changes are going well. OBJECTIVE: Temperature is 97.5, pulse 64, blood pressure 147/69, O2 saturation 100% on room air. General: She is alert, in no acute distress. Right ankle dressings with minimal serosanguineous drainage on dressing. We examined the wound yesterday afternoon and it was granulating well. There is no other necrosis. There was stable exposure of the calcaneus and the base of the wound but this seemed viable and healthy. Neck: is very large and redundant but no scars noted. White count is 8, hematocrit is 21, creatinine is 2.9, glucose is 308. Blood cultures from 11/04/2010, one out of the set shows Coag-negative Staph felt to be contaminant by Dr. English, and the wound cultures show Providencia rettgeri and Pseudomonas. Repeat blood cultures from yesterday are preliminarily negative. ASSESSMENT AND PLAN: This is a 45-year-old female with osteomyelitis and a severe diabetic foot wound of the right calcaneus. Dr. English plans care home antibiotics. She has chronic kidney disease and PICC line is not an option. We discussed risks, benefits, alternatives including bleeding, infection, damage to other structure, pneumothorax and arterial injury. If she consents to Patel catheter placement today, we place it this morning. Otherwise, from a surgical standpoint, I do not plan on further debridement and will place a wound VAC. I spoke with the Denisha Miller about this, and I think she is near ready for discharge once all this is arranged. She needs IV antibiotics for osteomyelitis, wound VAC for the wound, and home health for Patel catheter care. cc: Haritha Mendez MD [facility]Paul
--- NOTE | 2016-11-07 13:55 | PROGRESS NOTE ---
DATE: 11/07/2016 SUBJECTIVE: She feels better. No complaints. She is going to get her venous access I think today. OBJECTIVE: Vital signs: Temp 97.5 degrees, pulse 64, respirations 20, blood pressure 147/69. Lungs: Clear in all lung berrios. Cardiovascular: Regular rhythm and rate without murmur or S3. Abdomen: Soft. Skin: Warm and dry. : Good urine output. LAB: White count 8,310, hematocrit 21 with a hemoglobin of 6.3, platelet count 219,000. Chemistry: Sodium 132, potassium 3.7, chloride 98, bicarb 22, BUN 72, creatinine 2.9. Blood sugar 308, 257, 287. ASSESSMENT AND PLAN: 1. Osteomyelitis, severe diabetic foot wound of the calcaneus. Will need long-term antibiotics. He has chronic kidney disease and PICC line is not an option. Discuss risks, benefits, and alternatives and Dr. Mendez is planning on placing a Patel catheter. 2. Continue current antibiotics for osteomyelitis. Has gram-negative per culture. 3. Diabetes mellitus type 2. 4. Approaching end-stage renal disease. REVIEW OF LABS: I do not see much change. cc: Fred Ashby MD
[2016-11-07] MEDS ORDERED: NS 1,000 ML ONE (14:35)
[2016-11-07] MEDS ORDERED: HEPARIN ONE (14:35)
[2016-11-07] MEDS ORDERED: XYLOCAINE 1%/EPI 1:100,000 ONE (14:35)
[2016-11-07] MEDS ORDERED: KETAMINE (DOSE) ONE (16:15)
[2016-11-07] MEDS ORDERED: VERSED ONE (16:15)
[2016-11-07] MEDS ORDERED: LR 1,000 ML ONE (16:30)
[2016-11-07] MEDS ORDERED: EXTENSION SET 32 IN 4522 ONE (16:30)
[2016-11-07] MEDS ORDERED: ANESTHESIA PB SET 88 IN 5742 ONE (16:30)
[2016-11-07] MEDS ORDERED: ROBINUL ONE (16:30)
[2016-11-07] MEDS ORDERED: MORPHINE ONE (16:37)
--- NOTE | 2016-11-07 16:54 | Diag Imaging Result Document ---
PROCEDURE NAME: CHEST-PORTABLE - 11/07/2016 AP PORTABLE CHEST DATED AT 1615 HOURS: FINDINGS: The inspiration is suboptimal. The heart size is enlarged. Compared to 11/04/2016, there has been no significant change in the appearance of the chest. IMPRESSION: Stable chest.
[2016-11-07] MEDS: PROTONIX IV SCH ×3 (19:40→20:22)
--- NOTE | 2016-11-07 19:59 | OPERATIVE NOTE ---
PROCEDURE DATE: 11/07/2016 PREOPERATIVE DIAGNOSIS: Osteomyelitis. POSTOPERATIVE DIAGNOSIS: Osteomyelitis. PROCEDURES PERFORMED: 1. Aborted right internal jugular vein Patel catheter placement, ultrasound-guided. 2. Fluoroscopy less than 1 hour. ESTIMATED BLOOD LOSS: 25 mL. INDICATION: This is a 45-year-old female with chronic kidney disease who has osteomyelitis and need for long-term outpatient antibiotics. Tunneled Patel catheter is indicated for antibiotics OPERATIVE FINDINGS: Focused ultrasound of the right neck showed a very deep, but compressible internal jugular vein. Otherwise, normal vascular anatomy with forward flow. No evidence of intraluminal thrombus. Fluoroscopic exam showed ability to reach the right side of the heart with the guidewire. OPERATIVE NOTE: Risks, benefits, alternatives discussed with the patient. She consented to the procedure. She was taken to the operating room, placed in supine position. Monitored IV anesthesia was administered. Bilateral neck and chest were prepped with Betadine solution and draped in usual fashion. After time-out was performed, we used an ultrasound and under ultrasound guidance, we injected local anesthetic down to level of the internal jugular vein. Skin beth was made with 11 blade scalpel. A pink introducer needle was used to access the right internal jugular vein. It was very deep and required the entire length of the needle to access this, but we were able to safely obtain nonpulsatile venous blood. We passed a wire. There was some resistance initially curved towards the head, but we were able to reposition and get this to go down the right side of the heart. Due to the short and very wide deep nature of her vessel, the wire took almost a 90 degrees angle as it entered the vein. We then tunneled initially a [place] catheter that was 8-Kazakh up to the neck. We placed a peel-away dilator introducer sheath under fluoroscopic guidance. However, due to the acute angulation, we were unable to get the [place] 8- Kazakh to pass, and then tunneling the catheter required a counterincision midway through due to the size of her neck and inability to complete the tunnel due the redundant subcutaneous and panniculus tissue here. We then re-attempted the line placement with a new wire and a Patel catheter which was 9.5 [place]. We accessed the vein with the pink introducer needle with ultrasound guidance, past the wire which threaded in the right atria of the heart easily. We then tunneled the catheter up to the level of the incision in the neck from a counterincision and another incision in the chest. Then using a 10-Kazakh peel-away dilator introducer, we passed this under fluoroscopic guidance. We removed the wire and the dilator, but the Patel again would not pass due to the 90 degree turn as it entered the vein due to the size of her neck. As such, we aborted this. We did not feel a subclavian line given the angles we were facing was beneficial and would subject her to risk of pneumothorax which would be a big deal in this lady, so we aborted. We will plan to place a PICC line despite her creatinine in the future. We will obtain a chest x-ray in the PACU. Overall, she tolerated the procedure okay. There is no identified complication. cc: Haritha Mendez MD
[2016-11-07] MEDS: NEURONTIN PO SCH (20:22)
[2016-11-07] MEDS: NORCO-7.5 PO PRN (23:56)
[2016-11-08] MEDS: ZOFRAN IV PRN ×3 (00:01→13:59)
[2016-11-08] MEDS: CARAFATE LIQUID PO SCH ×4 (04:47→21:28)
[2016-11-08] MEDS: MAXIPIME 1 GM/NS 1 GM/50 ML IVPB IV SCH ×2 (05:49→21:36)
[2016-11-08] MEDS: HUMULIN R SUBQ SCH ×4 (06:01→21:26)
[2016-11-08 07:37] LABS: BASO% 0.2 % (0.0-0.8); EOS# 0.16 X1000 (0.0-0.7); EOS% 1.3 % (0.0-10.0); HEMATOCRIT 19.9 % (37.0-47.0); HEMOGLOBIN 5.9 g/dL (12.0-16.0); IMM GRAN# 0.05 X1000 (0.0-0.04); IMM GRAN% 0.4 % (0.0-0.5); LYMPH# 0.83 X1000 (1.2-3.4); LYMPH% 6.9 % (20.5-51.1); MANUAL DIFF NEEDED? YES; MCH 24.8 PG (27-31); MCHC 29.6 g/dL (33-37); MCV 83.6 FL (81-99); MONO# 0.94 X1000 (0.11-0.59); MONO% 7.8 % (1.7-9.3); MPV 10.6 FL (7.4-10.4); NEUT% 83.4 % (42.2-75.2); PLT 221 X1000 (130-400); RBC 2.38 XMIL (4.2-5.4)
[2016-11-08 07:42] LABS: HYPOCHROM 2+; LYMPHS 6 % (21-51); MONO 4 % (1-9)
[2016-11-08] MEDS ORDERED: NS 250 ML ONE (07:46)
[2016-11-08 08:03] LABS: ALBUMIN 2.6 g/dL (3.5-5.0); CALCIUM 8.4 mg/dL (8.8-10.2); POTASSIUM 3.9 mmol/L (3.5-5.1); TOTAL BILIRUBIN 0.38 mg/dL (0.20-1.00); TOTAL PROTEIN 6.9 g/dL (6.3-8.3)
[2016-11-08] MEDS: TENORMIN PO SCH (09:33)
[2016-11-08] MEDS: PROTONIX IV SCH ×2 (09:34→21:29)
[2016-11-08] MEDS: SODIUM CHLORIDE 0.9% INJ SCH ×2 (09:34→21:28)
[2016-11-08] MEDS: NORCO-7.5 PO PRN ×3 (09:34→21:27)
[2016-11-08] MEDS: SANTYL OINT TOP SCH (09:36)
[2016-11-08 11:09] LABS: HEMOGLOBIN 5.9 g/dL (12.0-16.0)
[2016-11-08] MEDS ORDERED: NS 500 ML ONE (12:41)
[2016-11-08 13:15] LABS: RETIC% 2.34 % (0.8-2.1); RETIC-HE 23.7 PG (28.2-36.6)
--- NOTE | 2016-11-08 15:42 | PROGRESS NOTE ---
DATE: 11/08/2016 PRESENT ILLNESS: The patient has cellulitis and osteomyelitis of the right foot which involves the calcaneus bone. Today, while the patient's dressing was being changed, another small abscess was discovered. The organisms isolated from the wound are Pseudomonas and Providencia. The patient has 1 of 2 blood cultures growing a coagulase-negative Staph. This is a contaminant and does not require treatment with an IV antibiotic such as vancomycin. MEDICATIONS: Currently, the patient is being treated with a single agent, namely cefepime. PHYSICAL EXAMINATION: Vital Signs: Temperature is 97.8 degrees, pulse 61, respirations 18, blood pressure 140/66. Generally, this is an ill-appearing young female who is in no acute distress. Lungs clear to auscultation. Cardiovascular: Regular heart rate. Abdomen soft and nontender. The patient's right foot has a dressing on it. The dressing is intact. LABORATORY DATA AND X-RAY: The chest x-ray shows no infiltrates. The patient's creatinine is 2.5. The GFR is 21. CBC shows a white count of 12,030. Hemoglobin 5.9 and platelet count 221,000. ASSESSMENT AND PLAN: The plan is to continue to treat the patient's right leg. It was attempted yesterday to put in a Patel catheter but it was unable to be put in and, instead, the patient has a PICC in her right arm. The PICC site is not erythematous or swollen. The patient has severe infection of the foot and more infection was found today. She already has osteomyelitis and cellulitis today and an abscess was encountered. The plan would be to continue with cefepime. Dr. Mendez will be providing local care to the wound. The patient's comorbidities is that she is obese. She has diabetes mellitus, peripheral neuropathy, COPD, and sleep apnea. cc: Pola English MD
--- NOTE | 2016-11-08 15:53 | PROGRESS NOTE ---
DATE: 11/08/2016 PRESENT ILLNESS: The patient has a severe infection in her right foot. It consists of cellulitis and osteomyelitis. Today an abscess was found and drained at bedside. The osteomyelitis involves the calcaneus. Yesterday a Patel catheter was attempted to be put in but was unable to be put in, so instead a PICC was placed in the right arm. MEDICATIONS: The patient is on cefepime as a single agent. PHYSICAL EXAMINATION: Vital Signs: Temperature is 97.8 degrees, pulse 61, respirations 18, blood pressure 140/66. General: This is an obese young female. She is in no acute distress. Lungs: Clear to auscultation. Cardiovascular: Regular heart rate. Abdomen: Soft and nontender. Extremities: Right foot: The patient has a dressing around it, the dressing is intact. Right arm: There is a PICC in place, the site is not erythematous or swollen. Chest: There is the site where a Patel catheter was attempted to be placed but it was not able to be placed. The site is not swollen or red. LAB AND X-RAY: Chest x-ray shows no pneumonia. The patient has 2 blood cultures drawn, one is sterile, the other one is growing a coagulase-negative staph. CBC shows a white count of 12,030, hemoglobin 5.9, and platelet count 221,000. Creatinine is 2.5. The GFR is 21. Culture from the wound grew Pseudomonas and Providencia. ASSESSMENT AND PLAN: I am going to continue with cefepime but the time that it is being treated starts with today being the #1 time because of the surgery done yesterday and draining the abscess. I plan to treat with IV cefepime for a total of 6 weeks. The patient does have right heel osteomyelitis. There is cellulitis of the right foot and an abscess in the right foot as well. COMORBIDITIES: Include diabetes mellitus, morbid obesity, peripheral neuropathy, and end-stage renal disease. cc: Pola English MD
--- NOTE | 2016-11-08 17:04 | PROGRESS NOTE ---
DATE: 11/08/2016 SUBJECTIVE: The patient is resting comfortably in bed. She states that her pain is under control. She does complain of constipation. OBJECTIVE: Vital Signs: Temperature 97 degrees, blood pressure 136/53, heart rate 60, respirations 17, O2 saturations 100% on 3 L nasal cannula. General: This is a middle-aged female, lying in bed in no acute distress. Head: Normocephalic, atraumatic. Heart: S1, S2. Normal. Regular rate and rhythm. Lungs: Clear to auscultation bilaterally. No wheezing. No rales. No rhonchi. Abdomen: Positive bowel sounds. Soft, nontender, nondistended. Extremities: There is a dressing that is clean, dry and intact on the right foot. Neurologic: The patient is alert and oriented x3. LABS: White blood cell count 12, hemoglobin 5.9, hematocrit 20, platelets 221. Sodium 131, potassium 3.9, chloride 97, CO2 21, BUN 71, creatinine 2.5, glucose 180, calcium 8.4, albumin 2.6. ASSESSMENT AND PLAN: 1. Right foot osteomyelitis with cellulitis status post excisional debridement. Continue on the current intravenous antibiotic regimen as directed by Dr. English. The patient will require six weeks of antibiotic therapy. This will be arranged by [facility]. 2. Acute kidney injury on chronic kidney disease stage IV. The patient's creatinine appears to be approaching her baseline. We will continue to monitor this closely. 3. Iron deficiency anemia. We will start the patient on iron supplementation. The patient reports that she does have menorrhagia and this is being followed by her primary care physician. 4. Morbid obesity. Aware. 5. Hypertension. Controlled. 6. Constipation. We will start the patient on scheduled laxative therapy. 7. Uncontrolled diabetes mellitus type 2. We will start the patient on Levemir. 8. Deep vein thrombosis prophylaxis. Due to the patient's low hemoglobin, we will use sequential compression devices. cc: Tara Duvall MD
--- NOTE | 2016-11-08 17:14 | PROGRESS NOTE ---
DATE: 11/08/2016 SUBJECTIVE: Seen on rounds this morning. No complaint. Right neck a little sore. No complaints related to her foot and not really much in the way sensation there however. OBJECTIVE: No fevers. No tachycardia. No hypotension overnight, oxygen saturation is 100% on 3 L nasal cannula. Right neck exam there is no hematoma, some bruising, incisions were all intact. Her right foot her calcaneal wounds clean. There is some fibrinous tissue in the bed. There is however a new bullous blister on the right lateral aspect of her foot. There is some mild erythema and edema in the foot as well. LABS: White count 12, hematocrit is 20 this morning, platelets 221,000. Creatinine is 2.5, glucose 243. ASSESSMENT/PLAN: A 45-year-old female with failed attempt at Patel catheter placement yesterday who has osteomyelitis and a diabetic foot wound that has been longstanding in her right foot. Catheter plate was unsuccessful due to the size and girth of her neck and the sharp angles it took to access the vein. We were unable to get a catheter to thread. As such she will need a PICC line placed today. She does not really have any other good options for long-term access. Regarding her calcaneal wound this seems to be healing well and I think it would be okay for wound VAC placement soon however she developed a new bullous blister on the right lateral aspect of her distal metatarsal overlying the 5th digit of unclear etiology what this is. I have recommended debridement at bedside to evaluate this and she consents. Will plan to proceed to perform this morning at the bedside. 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 Dr. English is making recommendations. Appreciate his help here. Hospitalists order her some transfusion. She is chronically anemic and suspect it was from the blood loss yesterday at time of surgery and is she is trickle down now but seems asymptomatic. cc: Haritha Mendez MD
--- NOTE | 2016-11-08 17:32 | OPERATIVE NOTE ---
PROCEDURE DATE: 11/08/2016 PREOPERATIVE DIAGNOSES: 1. Infected diabetic wound and osteomyelitis of the right calcaneus. 2. Bullous lesion of the right distal 5th metatarsal head. POSTOPERATIVE DIAGNOSES: 1. Osteomyelitis with a diabetic and infected wound to the right calcaneus. 2. Abscess of the distal 5th metatarsal. LOCAL: None. PROCEDURES PERFORMED: Excisional debridement of right distal 5th metatarsal lateral wound 2 x 2 cm skin and soft tissue but extending down to the level of the bone. OPERATIVE FINDINGS: There is a bullous lesion that is contained, thin but very foul-smelling purulent fluid. There is some necrotic tissue within the lateral aspect of her 5th metatarsal that extended down to the metatarsal head. OPERATIVE NOTE: Risks, benefits, alternatives discussed, and we discussed the need for debridement of this to evaluate the wound further underlying this bullous collection and to facilitate ongoing healing. She consented. Surgical site was confirmed. Time-out was performed between the surgeon and the nursing staff. We prepped the overlying skin with alcohol and using sterile suture removal kit we excised this very tense bullous lesion and there was a large amount of foul-smelling, thin, purulent, cloudy fluid that was expressed. There was some necrosis in the base of this and we excised this and there is good drainage of material here, but it did probe down to the level of metatarsal but the bone seemed healthy here. She tolerated it well. There is no real bleeding. The surrounding tissue seemed healthy. I suspect this is a product of what she has deep in her foot that has worked its way out here. We will continue to do dressing changes and monitor. She is on antibiotics. cc: Haritha Mendez MD
[2016-11-08] MEDS: NEURONTIN PO SCH (21:28)
[2016-11-08] MEDS ORDERED: INSULIN PEN NEEDLES ONE (21:32)
[2016-11-08] MEDS: DULCOLAX PR SCH (21:36)
[2016-11-08] MEDS: MIRALAX PO SCH (21:36)
[2016-11-08] MEDS: LEVEMIR SUBQ SCH (21:36)
[2016-11-09] MEDS: CARAFATE LIQUID PO SCH ×4 (02:52→21:10)
[2016-11-09 07:54] LABS: AGAP 15; BUN 76 mg/dL (8-22); CALCIUM 8.5 mg/dL (8.8-10.2); CHLORIDE 98 mmol/L (98-107); COSMO 296; SODIUM 133 mmol/L (136-145); TCO2 20 mmol/L (25-35)
[2016-11-09] MEDS: MIRALAX PO SCH (08:19)
[2016-11-09] MEDS: FOLIC ACID PO SCH (08:19)
[2016-11-09] MEDS: ICAR-C PO SCH (08:20)
[2016-11-09] MEDS: TENORMIN PO SCH (08:20)
[2016-11-09] MEDS: LEVEMIR SUBQ SCH ×2 (08:21→21:15)
[2016-11-09] MEDS: SODIUM CHLORIDE 0.9% INJ SCH ×2 (08:26→21:11)
[2016-11-09] MEDS: PROTONIX IV SCH ×2 (08:26→21:11)
[2016-11-09] MEDS: NS 1,000 ML IV SCH ×2 (08:27→21:23)
[2016-11-09] MEDS: SANTYL OINT TOP SCH (08:27)
[2016-11-09] MEDS: NORCO-7.5 PO PRN ×3 (08:43→21:23)
[2016-11-09] MEDS: ZOFRAN IV PRN ×2 (08:45→16:05)
[2016-11-09 09:15] LABS: HEMATOCRIT 25.7 % (37.0-47.0); HEMOGLOBIN 7.8 g/dL (12.0-16.0); MCH 25.7 PG (27-31); MCHC 30.4 g/dL (33-37); MCV 84.8 FL (81-99); MPV 11.3 FL (7.4-10.4); RBC 3.03 XMIL (4.2-5.4)
--- NOTE | 2016-11-09 10:34 | PROGRESS NOTE ---
DATE: 11/09/2016 SUBJECTIVE: She is sleeping, but no events recorded overnight. OBJECTIVE: Vital Signs: No fever this morning. Temperature 98.5, pulse 64, blood pressure 176/76, and oxygen saturation 97% on 2L. General: She is resting. Dressings in place on the right, but with some serosanguineous drainage. LABORATORIES: Reviewed laboratories. White count is 10, hematocrit is 25. Creatinine is 3.0. Glucose is up to 229. ASSESSMENT AND PLAN: This 45-year-old female with severe right diabetic foot infection has undergone debridement of calcaneal wound and right distal 5th metatarsal wound. She is on IV antibiotics for osteomyelitis, which was confirmed with a bone scan. Will need to continue local wound care. As her wounds clean up, will ultimately transition to wound VAC. She has a lot of medical issues complicating her recovery, diabetes poorly controlled, obesity, and pulmonary issues, as well, but she slowly seems to be improving. I do worry about the prognosis of her foot long-term, as these can be very difficult wounds for her to heal, but we appear to have good adequate source control at this point. cc: Haritha Mendez MD
[2016-11-09] MEDS: HUMULIN R SUBQ SCH ×4 (11:29→21:17)
[2016-11-09] MEDS: MAXIPIME 1 GM/NS 1 GM/50 ML IVPB IV SCH ×2 (11:33→17:42)
[2016-11-09] MEDS ORDERED: LACTULOSE PO ONE (11:37)
[2016-11-09] MEDS ORDERED: DULCOLAX PR ONE (11:38)
--- NOTE | 2016-11-09 13:49 | Diag Imaging Result Document ---
PROCEDURE NAME: FLAT/UPRIGHT ABD/1 VIEW CHEST - 11/09/2016 FLAT AND UPRIGHT WITH CHEST, 4 VIEWS. COMPARISON: Chest compared to 11/07/2016. FINDINGS: The lungs remain well expanded. The heart remains enlarged. No pneumonia. No free air beneath the diaphragm. There is very little information obtained in the abdomen due to the patient's large size. IMPRESSION: 1. Stable chest. 2. Limited exam in the abdomen although the bowel loops which are seen are not distended.
--- NOTE | 2016-11-09 13:59 | CONSULTATION ---
DATE OF CONSULTATION: 11/09/2016 REASON FOR CONSULTATION: Chronic kidney disease. HISTORY OF PRESENT ILLNESS: Ms. Quiros is a 45-year-old white female who is well known to me. She has baseline chronic kidney disease stage 4 with baseline creatinine of approximately 2.5-3. Our most recent creatinine was in August 01.. She was admitted because of nausea and vomiting as well as osteomyelitis of the foot. Her creatinine has ranged between 2.5 and 3 since admission. She is currently receiving IV fluids. No shortness of breath, chest discomfort, etc. She has been able to eat. PAST MEDICAL HISTORY: 1. Obesity. 2. Diabetes type 2. 3. Peripheral vascular disease. 4. Peripheral neuropathy. 5. Hypertension. 6. CKD. As above. 7. Obstructive sleep apnea. CURRENT MEDICATIONS: Include lactulose as needed, sucralfate, pantoprazole, ondansetron, cefepime, insulin, hydrocodone, gabapentin, folate, bisacodyl, atenolol, albuterol ipratropium, Tylenol. ALLERGIES: Vancomycin, ciprofloxacin. SOCIAL HISTORY: No alcohol or tobacco. FAMILY HISTORY: Positive for ESRD. OBJECTIVE: Vital Signs: Blood pressure 176/76, heart rate 82, respirations 20, afebrile. General: She is in no acute distress. Skin: Warm and dry. Foot is not examined. HEENT: Pupils are equal. Conjunctivae are pink. Oropharynx is clear. Neck: Supple. Neck veins are not visible. Trachea is midline. Heart: Regular without gallops or murmurs. Lungs: Have equal breath sounds without crackles or wheezes. Abdomen: Soft and nontender. Bowel sounds are present. Extremities: Have 1+ edema. No clubbing or cyanosis. LABORATORY DATA: Sodium 133, potassium 4.0, chloride 98, bicarbonate 20, BUN 76, creatinine 3.0. IMPRESSION: Chronic kidney disease stage 4. Creatinine baseline is 2.5-3. She does have a high BUN to creatinine ratio. She is receiving intravenous fluids normal saline at 75 mL/h. We will check urine electrolytes as well as troponin, CK and EKG. Will follow with you. No medication changes. cc: Philippe Lino MD
--- NOTE | 2016-11-09 15:07 | PROGRESS NOTE ---
DATE: 11/09/2016 SUBJECTIVE: The patient is sitting at the edge of the bed. She states that she has not had a bowel movement yet. She did take the MiraLAX but states that it made her feel sick to her stomach. She is receiving pain medication. OBJECTIVE: Vital Signs: Temperature 98.5 degrees, blood pressure 176/76, heart rate 82, respirations 20, O2 saturations 99% on room air. General: This is a morbidly obese female lying in bed in no acute distress. Head: Normocephalic. Atraumatic. Heart: S1, S2. Normal. Regular rate and rhythm. Lungs: Clear to auscultation bilaterally. Abdomen: Positive bowel sounds. Soft, nontender, nondistended. Extremities: The right foot is wrapped in a clean, dry dressing. The patient does have +1 edema involving the left lower extremity. Neurologic: The patient is alert and oriented x3. LABS: White blood cell count 10, hemoglobin 7.8, hematocrit 25, platelets 213, 000. Sodium 133, potassium 4, chloride 98, CO2 20, BUN 76, creatinine 3, glucose 229, calcium 8.5, troponin 0.04. ASSESSMENT AND PLAN: 1. Right foot osteomyelitis and cellulitis status post excisional debridement. The wound culture is growing Pseudomonas and Providencia. The patient will require 6 weeks of cefepime as directed by Dr. English. The patient already has a PICC line in place. 2. Acute kidney injury on chronic kidney disease stage 4. The patient's creatinine jumped from 2.5 to 3 overnight. This was discussed with Dr. Lino. The patient has been started on normal saline and urine studies are currently pending as well as a renal ultrasound. Will also monitor the patient's urine output closely and avoid nephrotoxic agents. 3. Constipation. This may be opioid induced. Will give the patient a dose of lactulose and start the patient on Movantik 4. Hypertension. Controlled. 5. Iron-deficiency anemia. The patient's hemoglobin and hematocrit did improve after receiving 2 units of packed red blood cells yesterday. She is also on oral iron supplementation. Her stool for occult blood is positive. Will likely need a GI workup as outpatient. 6. Uncontrolled diabetes mellitus type 2. Continue on Levemir 20 units subcutaneous twice a day. 7. Deep vein thrombosis prophylaxis. Continue with SCDs while in bed. cc: Tara Duvall MD [facility]
--- NOTE | 2016-11-09 16:45 | Diag Imaging Result Document ---
PROCEDURE NAME: US RENAL 2 (RETROPER) COMPLETE - 11/09/2016 RENAL ULTRASOUND: FINDINGS: The right kidney measures 13.6 x 6.3 x 6.3 cm. Normal renal echotexture and cortical thickness. No renal stone or hydronephrosis. No renal mass. The left kidney measures 12.5 x 6.4 x 6.8 cm. Normal renal echotexture and cortical thickness. No renal stone or hydronephrosis. No renal mass. The urinary bladder is mild to moderately distended and appears normal. IMPRESSION: Normal renal ultrasound. A preliminary report was given at 3:59 p.m.
[2016-11-09] MEDS: DULCOLAX PR SCH (21:09)
[2016-11-09] MEDS: NEURONTIN PO SCH (21:14)
[2016-11-09 21:30] LABS: URINE MICRO REVIEW NEEDED? NO; URINE SOURCE VOIDED
[2016-11-09 21:36] LABS: BILIRUBIN URINE NEGATIVE (NEGATIVE); BLOOD URINE LARGE (NEGATIVE); COLOR ORANGE; GLUCOSE URINE NEGATIVE (NEGATIVE); LEUKOCYTES URINE SMALL (NEGATIVE); NITRITE URINE NEGATIVE (NEGATIVE); PH URINE 5.5; PROTEIN URINE 100 mg/dL (NEGATIVE); SP GRAVITY URINE 1.015; TURBIDITY URINE HAZY (CLEAR); UROBILINOGEN URINE NORMAL (NORMAL)
[2016-11-09 21:38] LABS: UR EPITHELIAL CELLS <10 /HPF (<10); URINE BACTERIA NEGATIVE /HPF; URINE RBC TNTC /HPF (<10)
[2016-11-09 22:25] LABS: UR CREAT RANDOM 109.3 mg/dL (11-20)
[2016-11-10] MEDS: CARAFATE LIQUID PO SCH ×4 (02:54→20:13)
[2016-11-10] MEDS: MAXIPIME 1 GM/NS 1 GM/50 ML IVPB IV SCH ×2 (05:58→17:02)
[2016-11-10] MEDS: MOVANTIK PO SCH (05:59)
[2016-11-10] MEDS: HUMULIN R SUBQ SCH ×4 (05:59→23:02)
[2016-11-10 06:39] LABS: HEMATOCRIT 25.1 % (37.0-47.0); HEMOGLOBIN 7.6 g/dL (12.0-16.0); MCH 25.8 PG (27-31); MCHC 30.3 g/dL (33-37); MCV 85.1 FL (81-99); RBC 2.95 XMIL (4.2-5.4)
[2016-11-10 06:55] LABS: CALCIUM 8.5 mg/dL (8.8-10.2); POTASSIUM 4.1 mmol/L (3.5-5.1)
[2016-11-10] MEDS: ZOFRAN IV PRN ×2 (08:00→20:16)
[2016-11-10] MEDS: SODIUM CHLORIDE 0.9% INJ SCH ×2 (08:00→20:15)
[2016-11-10] MEDS: PROTONIX IV SCH ×2 (08:00→20:15)
[2016-11-10] MEDS: ICAR-C PO SCH (08:00)
[2016-11-10] MEDS: TENORMIN PO SCH (08:00)
[2016-11-10] MEDS: FOLIC ACID PO SCH (08:01)
[2016-11-10] MEDS: LEVEMIR SUBQ SCH (08:01)
[2016-11-10] MEDS: SANTYL OINT TOP SCH (08:02)
[2016-11-10] MEDS: NORCO-7.5 PO PRN ×2 (08:23→20:14)
[2016-11-10] MEDS: NS 1,000 ML IV SCH (11:06)
[2016-11-10] MEDS ORDERED: LASIX IV ONE (12:57)
--- NOTE | 2016-11-10 14:30 | PROGRESS NOTE ---
DATE: 11/10/2016 SUBJECTIVE: Feeling better. OBJECTIVE: Vital signs: Temperature is 98.0 degrees, pulse 76, blood pressure 173/88, oxygen saturation 96% on room air. General: She is alert, in no acute distress. Neck: Some mild bruising of the right neck. No hematoma. Extremities: Right foot calcaneal wound has some fibrinous stuff in the bed but the surrounding tissue is granulating. There is some persistent cellulitis of her foot the lateral wound is open. I do not see any more pus drainage here but appears there appears to be another sinus opening more proximally. The skin overlying is not necrotic at this point. She describes some deep aching pain. LABS: White count is 10, hematocrit 25. Creatinine is 2.6. Glucose 186. ASSESSMENT AND PLAN: This is a 45-year-old white female, severe diabetic, obese , who has chronic wounds to her right foot. We debrided both the lateral wound and the proximal wound. I suspect she may be opening another sinus proximally. She has osteomyelitis and is on antibiotics for this. We had a long discussion this morning about the need for most likely more debridement Friday or Friday of this week and if this continues to be an issue in the face of everything we are doing, she may ultimately progress to a below-knee amputation. She understands that this is a possibility. We are working to save her foot with IV antibiotics and serial debridements, but she continues develop issues in this leg. She has had LEAs and Her foot is perfused. They are a little limited due to non-compressibility given the size of the legs and calcific disease but we cannot do an arteriogram right now given her renal dysfunction. But, good bleeding was noted at the time of surgery and I think she has adequate large vessel flow but she does have most definitely microvascular disease from her poorly controlled long-standing diabetes and this is contributing to her wound healing problems. cc: Haritha Mendez MD [facility]
--- NOTE | 2016-11-10 17:28 | PROGRESS NOTE ---
DATE: 11/10/2016 SUBJECTIVE: The patient states that she feels more swollen today in her hands and feet. She did have a bowel movement. She denies having any shortness of breath. OBJECTIVE: Vital Signs: Temperature 97.8 degrees, blood pressure 147/68, heart rate 70, respirations 18, O2 saturation is 99% on room air. General: This is a morbidly obese female, lying in bed, in no acute distress. Head: Normocephalic, atraumatic. Heart : S1, S2. Normal. Regular rate and rhythm. Lungs: Clear to auscultation bilaterally. Abdomen: Positive bowel sounds. Soft, obese, nontender, nondistended. Extremities: There is 2+ edema in the lower extremities. The right foot has a clean, dry dressing in place. Neurologic: The patient is alert and oriented x3. LABS: White blood cell count 10, hemoglobin 7.6, hematocrit 25, platelets 202, 000. Sodium 131, potassium 4.1, chloride 98, CO2 20, BUN 77, creatinine 2.6, glucose 183, calcium 8.5. ASSESSMENT AND PLAN: 1. Right foot osteomyelitis with chronic wound infection status post excisional debridement. Continue on the current IV antibiotic regimen as directed by Dr. English. General Surgery is following. 2. Chronic kidney disease stage 4. The patient appears to be back to her baseline. We will discontinue the IV fluids today and give the patient a dose of Lasix. Nephrology is following. 3. Constipation. Improved. Continue on scheduled laxative therapy. 4. Iron-deficiency anemia. Continue on iron supplementation. 5. Hypertension. Controlled. 6. Uncontrolled diabetes mellitus type 2. We will increase the Levemir to 25 units subcutaneous twice a day. 7. Morbid obesity. Aware. cc: Tara Duvall MD [facility]
[2016-11-10] MEDS: NEURONTIN PO SCH (20:15)
[2016-11-10] MEDS ORDERED: LEVEMIR SUBQ SCH (21:00)
[2016-11-11] MEDS: DULCOLAX PR SCH ×2 (03:21→21:58)
[2016-11-11] MEDS: CARAFATE LIQUID PO SCH ×4 (03:22→21:57)
[2016-11-11] MEDS: MAXIPIME 1 GM/NS 1 GM/50 ML IVPB IV SCH ×2 (05:46→19:13)
--- NOTE | 2016-11-11 06:15 | EKG Report ---
Test Performed on : 11/10/2016 06:18:41 AM Test Reason : CP Blood Pressure : / mmHG Vent. Rate : 060 BPM Atrial Rate : 060 BPM P-R Int : 180 ms QRS Dur : 152 ms QT Int : 474 ms P-R-T Axes : 023 -24 024 degrees QTc Int : 474 ms Normal sinus rhythm. Right bundle branch block Minimal voltage criteria for LVH, may be normal variant Abnormal ECG When compared with ECG of 24-JUL-2016 11:36, Left anterior fascicular block is no longer present Criteria for Anterior infarct are no longer present Criteria for Anterolateral infarct are no longer present Criteria for Inferior infarct are no longer present Confirmed by aNdiya SYED, Faisal Monreal ([id number]) on 11/11/2016 7:32:02 AM
[2016-11-11] MEDS: MOVANTIK PO SCH (06:19)
[2016-11-11] MEDS: HUMULIN R SUBQ SCH ×4 (06:20→21:59)
[2016-11-11 07:11] LABS: HEMATOCRIT 25.5 % (37.0-47.0); HEMOGLOBIN 7.7 g/dL (12.0-16.0); MCH 25.8 PG (27-31); MCHC 30.2 g/dL (33-37); MCV 85.3 FL (81-99); MPV 10.8 FL (7.4-10.4); RBC 2.99 XMIL (4.2-5.4)
[2016-11-11] MEDS: NORCO-7.5 PO PRN ×2 (07:22→16:27)
[2016-11-11 07:43] LABS: ALBUMIN 2.5 g/dL (3.5-5.0); CALCIUM 8.6 mg/dL (8.8-10.2); POTASSIUM 3.8 mmol/L (3.5-5.1)
[2016-11-11] MEDS: FOLIC ACID PO SCH (09:51)
[2016-11-11] MEDS: PROTONIX IV SCH (09:51)
[2016-11-11] MEDS: ICAR-C PO SCH (09:51)
[2016-11-11] MEDS: TENORMIN PO SCH (09:51)
[2016-11-11] MEDS: SANTYL OINT TOP SCH (09:52)
[2016-11-11] MEDS: LEVEMIR SUBQ SCH ×2 (09:52→22:14)
[2016-11-11] MEDS: LASIX PO SCH ×2 (09:56→21:57)
--- NOTE | 2016-11-11 14:55 | PROGRESS NOTE ---
DATE: 11/11/2016 SUBJECTIVE: The patient is sitting at the edge of the bed. She states that she feels a lot better this morning. She does have swelling in her arms and legs. OBJECTIVE: Vital Signs: Temperature 98.4 degrees, blood pressure 140/100, respirations 17, heart rate 66, O2 saturations 96% on room air. General: This is a morbidly obese female lying in bed in no acute distress. Head: Normocephalic, atraumatic. Heart: S1, S2. Normal. Regular rate and rhythm. Lungs: Equal air entry bilaterally. No crackles, no rales. Abdomen: Positive bowel sounds. Soft, obese, nontender, nondistended. Extremities: 2+ edema. The right foot has a clean dry dressing on it. Neurologic: The patient is alert and oriented x3. LABS: White blood cell count 8.8, hemoglobin 7.7, hematocrit 25, platelets 221, 000. Sodium 134, potassium 3.8, chloride 99, CO2 21, BUN 65, creatinine 2.4, glucose 204, albumin 2.5. ASSESSMENT AND PLAN: 1. Right foot osteomyelitis with a chronic wound infection status post excisional debridement. The patient will be undergoing additional debridement this week as per Dr. Mendez. Continue on IV antibiotic therapy. 2. Chronic kidney disease stage 4. Stable. 3. Volume overload. The patient has been restarted on Lasix by Dr. Lino. 4. Iron-deficiency anemia. Continue on iron supplementation. 5. Uncontrolled diabetes mellitus type 2. Will increase the Levemir dosage to 35 units subcutaneous twice a day. Continue on sliding scale insulin for coverage. 6. Morbid obesity. Aware. cc: Tara Duvall MD [facility]
--- NOTE | 2016-11-11 15:19 | PROGRESS NOTE ---
DATE: 11/11/2016 TIME SEEN: 0745. SUBJECTIVE: Ms. Quiros is resting quietly on the side of the bed. She is eating her breakfast. She denies any chest pain or increased work of breathing. States that her swelling is much improved after starting Lasix yesterday. OBJECTIVE: Vital signs: Her most recent vital signs, last temperature 98.1 degrees, blood pressure 160/60, heart rate 65, respirations are 16. She is on 2 L nasal cannula. Last recorded saturation is 99%. She has had 1000 in. She has had 700 out per void. Labs: This a.m., sodium 134, potassium 3.8, chloride 99, CO2 21, BUN 65, creatinine is 2.4, glucose 204. Her anion gap is 14, calcium is 8.6, phosphorus 2.7, previous albumin of 2.5. Hemoglobin 7.7 with hematocrit of 25.5, white count 8.82 with a platelet count of 221,000. Previous urinalysis indicates proteinuria with large hematuria, positive leukocytes, RBCs. PHYSICAL EXAMINATION: General: This is a 45-year-old white female. She is currently resting on the side of the bed. Skin: Warm and dry. HEENT: Normocephalic, atraumatic. Conjunctivae pale. She has LOVE. Mucous membranes moist. Neck: Supple. Trachea midline. Unable to determine JVD. Cardiovascular: Distant cardiac sounds. Regular rate and rhythm. Unable to determine murmur or gallop. Lungs: Diminished breath sounds. Clear to auscultation. Remains on O2. Equal excursion. Abdomen: Obese, soft, nontender. Positive bowel sounds. Extremities: She continues with 1+ lower extremity edema. Her right foot remains wrapped with Kerlix dressing. Neurological: She is alert and oriented x3. ASSESSMENT AND PLAN: 1. Chronic kidney disease stage 4. Patient's creatinine remains at her baseline at 2.3 to 2.6. No indications for any intervention. She does continue with IV fluids. These have been diminished. 2. Fluid volume overload. Patient has had a drop in her urinalysis. We have started her on Lasix 40 mg b.i.d. yesterday. She has adequate urine out. We will continue to monitor her creatinine during this period of time. 3. Electrolytes. These remain stable. 4. Acid-base balance. This is stable. 5. Anemia. Patient has received 2 units of packed red blood cells during this hospitalization. 6. Osteomyelitis to her right foot. This is followed by the primary care team and Dr. Mendez. I would like to thank you for allowing us to follow with this patient. Seen, data reviewed, discussed with G[place] Viera on 11/11/16. I agree with the above assessment and plan of care. rg Dictated by ARLENE Newman for Philippe Lino MD cc: ARLENE Newman MD [facility]
[2016-11-11] MEDS: ZOFRAN IV PRN (16:35)
--- NOTE | 2016-11-11 17:36 | PROGRESS NOTE ---
DATE: 11/11/2016 SUBJECTIVE: She feels better. Energy coming back, no more nausea, vomiting or abdominal pain. OBJECTIVE: Vital signs: No fevers. Temperature is 98.4 degrees, pulse 67, blood pressure 155/71, O2 saturation 100% on room air. General: She is alert, no acute distress. Integument: Warm, dry. Her lower extremities are with 2+ edema slightly more right than left. The calcaneal wound has good granulation tissue around and some fibrinous tissue in the bed but no necrosis. Right lateral foot wound is no longer draining tena pus. There is some maceration the skin around this and some again fibrinous and possibly some necrotic tissue in bed of this wound. There is some erythema the foot and remains edematous but this is no worse than yesterday. LABS: White count is 8, hematocrit 25, creatinine is 2.4. ASSESSMENT AND PLAN: This is 45-year-old female with severe diabetic foot infections and osteomyelitis. Suspect she is going to need some bedside debridements of these wounds over the next day or 2 but I think we can hold off on any further surgical debridement at this point. She is on antibiotics. Glucose remain high. Dr. Lino has started back on Lasix which I think will help her lower extremity significantly. cc: Haritha Mendez MD
--- NOTE | 2016-11-11 18:23 | PROGRESS NOTE ---
DATE: 11/11/2016 PRESENT ILLNESS: The patient has a severe infection of her right foot, which includes osteomyelitis of the calcaneus bone. MEDICATIONS: The patient is receiving cefepime. I will start counting the day of treatment with cefepime after Dr. Mendez is finished doing surgery on the foot. The patient indicated to me that Dr. Mendez tends to debride the wound at bedside. PHYSICAL EXAMINATION: Vital Signs: Temperature is 98.4 degrees, pulse 67, respirations 18, blood pressure 155/71. General: This is an obese young female, who is in no acute distress. Lungs: Clear to auscultation. Cardiovascular: Regular heart rate. Abdomen: Soft and nontender. The patient's legs both are edematous. The right foot has a large dressing around it. The dressing is intact. The patient does have a PICC in her left arm. LAB AND X-RAY: There is no new x-ray. The patient's CBC shows a white count of 8,820, hemoglobin 7.7, and platelet count 221,000. Creatinine is 2.4. The GFR is 22. ASSESSMENT AND PLAN: The patient has severe foot infection as mentioned. My plan is to continue the patient on cefepime pending any further cultures. I plan to treat her for a total of 6 weeks with cefepime, with the time started when Dr. Mendez has finished totally debriding the foot. The patient has osteomyelitis, cellulitis, and an abscess of the right foot. COMORBIDITIES: Include diabetes mellitus, morbid obesity, peripheral neuropathy, and end-stage renal disease. cc: Pola English MD
[2016-11-11] MEDS ORDERED: CATHFLO IV ONE ×4 (19:33→23:16)
[2016-11-11] MEDS ORDERED: STERILE WATER INJ. INJ ONE ×4 (19:33→23:16)
[2016-11-11] MEDS: NEURONTIN PO SCH (21:57)
[2016-11-12] MEDS: PROTONIX IV SCH ×3 (01:37→20:48)
[2016-11-12] MEDS: CARAFATE LIQUID PO SCH ×4 (04:02→20:48)
[2016-11-12] MEDS: MAXIPIME 1 GM/NS 1 GM/50 ML IVPB IV SCH ×2 (05:17→19:38)
[2016-11-12] MEDS: MOVANTIK PO SCH (06:26)
[2016-11-12] MEDS: HUMULIN R SUBQ SCH ×4 (06:26→21:41)
[2016-11-12 07:01] LABS: HEMATOCRIT 25.2 % (37.0-47.0); HEMOGLOBIN 7.6 g/dL (12.0-16.0); MCH 25.9 PG (27-31); MCHC 30.2 g/dL (33-37); MPV 10.7 FL (7.4-10.4); RBC 2.93 XMIL (4.2-5.4)
[2016-11-12 07:05] LABS: ALBUMIN 2.4 g/dL (3.5-5.0); CALCIUM 8.8 mg/dL (8.8-10.2); POTASSIUM 3.9 mmol/L (3.5-5.1)
[2016-11-12] MEDS: NORCO-7.5 PO PRN ×2 (08:59→19:38)
[2016-11-12] MEDS ORDERED: LEVEMIR SUBQ SCH (09:00)
[2016-11-12] MEDS: TENORMIN PO SCH (09:00)
[2016-11-12] MEDS: ZOFRAN IV PRN ×2 (09:00→19:38)
[2016-11-12] MEDS: LASIX PO SCH ×2 (09:01→20:46)
[2016-11-12] MEDS: ICAR-C PO SCH (09:01)
[2016-11-12] MEDS: FOLIC ACID PO SCH (09:01)
[2016-11-12] MEDS: SANTYL OINT TOP SCH (09:07)
--- NOTE | 2016-11-12 11:05 | PROGRESS NOTE ---
DATE: 11/12/2016 SUBJECTIVE: Ms. Quiros is sitting on the side of the bed. She is eating her breakfast. She denies any pain. States that her hands are less swollen and she is feeling just a little bit better though her right foot does ache at times. OBJECTIVE: Her temperature is 99.8 degrees, blood pressure 180/64, heart rate 73, respirations are 20. She remains on room air. Last recorded saturation is 98%. She has had 770 in. She has had 4200 out per void. LABORATORY DATA: Sodium 136, potassium 3.9, chloride 100, CO2 22, BUN 58, creatinine 2.1, glucose 224. Her anion gap is 14, calcium 8.8, phosphorus 2.5, albumin 2.4. White count 7.48, hemoglobin 7.6, hematocrit 25.2, with a platelet count of 204,000. PHYSICAL EXAMINATION: General: This is a 45-year-old white female sitting on the side of the bed. She is in no acute distress. Skin: Warm and dry. HEENT: Normocephalic , atraumatic. Conjunctivae pale. She has LOVE. Mucous membranes moist. Neck: Supple. Trachea midline. No JVD. Cardiovascular: Regular rate and rhythm. She has distant cardiac sounds. No murmur or gallop appreciated. Lungs: Diminished breath sounds. Clear to auscultation anterior. She remains on O2. Equal excursion. Abdomen: Obese, soft, nontender. Positive bowel sounds. Extremities: Continues with 1+ lower extremity edema bilateral. Right foot remains wrapped in Kerlix dressing. Neurological: She is alert and oriented x3. ASSESSMENT AND PLAN: 1. Chronic kidney disease stage 4. Patient's creatinine remains at her baseline in spite of having an increase in her Lasix. No indications for any intervention at this time. 2. Fluid volume overload. Again, the patient continues on Lasix 40 b.i.d. with adequate urine out and edema is improving. 3. Electrolytes with acid-base balance. These are stable. 4. Anemia. This remains stable after 2 units of packed red blood cells. 5. Osteomyelitis. She continues to be followed by Dr. Mendez with IV antibiotics. I would like to thank you for allowing us to follow with this patient. Seen, data reviewed, discussed with Ganga Viera on 11/12/16. I agree with the above assessment and plan of care. rg Dictated by ARLENE Newman for Philippe Lino MD cc: ARLENE Newman MD [facility]
[2016-11-12] MEDS ORDERED: LANTUS SUBQ ONE (11:15)
--- NOTE | 2016-11-12 13:18 | PROGRESS NOTE ---
DATE: 11/12/2016 SUBJECTIVE: Feels okay. No real pain. OBJECTIVE: No fevers. Temperature is 98.2 degrees, pulse 75, blood pressure 181/72, O2 saturation 100% on room air.General: She is alert, in no acute distress. Cardiovascular: Normal rate, rhythm. Right calcaneal wound has some fibrinous tissue in the bed. There is decreased purulence but there is some necrotic tissue in the bed of the lateral foot wound and a new sinus proximal to this. There is persistent edema and some redness of her foot but overall this seems improved. LABS: Reviewed her labs. White count is normal at 7. Creatinine is 2.1. ASSESSMENT/PLAN: A 45-year-old female with severe infected diabetic foot wounds. I have discussed with her that we need to go to the operating room and debride the lateral aspect of her foot again tomorrow and if this looks okay we will also debride her heel and if this looks okay we will plan to place her back. In meantime will continue wet-to-dry dressings with lavage twice daily and Santyl. cc: Haritha Mendez MD
--- NOTE | 2016-11-12 15:07 | PROGRESS NOTE ---
DATE: 11/12/2016 PRESENT ILLNESS: The patient has a calcaneus osteomyelitis of the right foot. MEDICATIONS: Patient received cefepime. The dose has been decreased because of the patient's end- stage renal disease. I would like to treat the patient for a total of 6 weeks following the last debridement of the patient's foot which is scheduled for tomorrow. PHYSICAL EXAMINATION. Lungs: Clear to auscultation. Cardiovascular: Heart rate is regular. Abdomen: Soft and nontender. The patient's right foot has a dressing on it. The dressing is intact. The patient has a PICC placed in her left arm. The PICC site is not red or draining. LAB AND X-RAY: Creatinine is 2.1. The GFR is 26. CBC shows a white count of 7480, hemoglobin 7.6 and platelet count 204,000. ASSESSMENT AND PLAN: The patient has a severe foot infection. For now I plan to continue the cefepime for 6 weeks following the last debridement of the foot which is scheduled to be tomorrow. COMORBIDITIES: Include diabetes mellitus, obesity, peripheral neuropathy and end-stage renal disease. cc: Pola English MD [facility]TD[facility]
[2016-11-12] MEDS ORDERED: INSULIN PEN NEEDLES ONE (16:08)
--- NOTE | 2016-11-12 17:14 | PROGRESS NOTE ---
DATE: 11/12/2016 SUBJECTIVE: The patient states that her swelling is slowly improving. The patient now has swelling of her index finger and her 2nd finger, as well as the erythema and pain. OBJECTIVE: Vital Signs: Temperature 98.6 degrees, blood pressure 167/61, heart rate 72, respirations 16, O2 saturation is 97% on room air. General: This is a morbidly obese female, lying in bed, in no acute distress. Head: Normocephalic, atraumatic. Heart: S1, S2. Normal. Regular rate and rhythm. Lungs: Clear to auscultation bilaterally. Abdomen: Positive bowel sounds. Soft, nontender, nondistended. Extremities: The right foot is dressed in a clean, dry dressing. The left leg has 2+ edema. The left index finger is swollen with a small pustule at the nail bed with surrounding erythema and the second finger on the left hand is also swollen and erythematous. Neurologic: The patient is alert and oriented x3. LABS: White blood cell count 7.4, hemoglobin 7.6, hematocrit 25, platelets 204, 000. Sodium 136, potassium 3.9, chloride 100, CO2 22, BUN 58, creatinine 2.1, glucose 224, phosphorus 2.5, albumin 2.4. ASSESSMENT AND PLAN: 1. Right foot osteomyelitis with diabetic wound infection, status post excisional debridement. Continue on IV cefepime. The patient is scheduled to undergo additional debridement tomorrow in the OR. 2. Left finger cellulitis/inflammation. Continue on IV antibiotic therapy. Will check a uric acid to rule out the possibility of gout. 3. Volume overload. Will continue on oral Lasix. 4. Chronic kidney disease stage 4. Stable. 5. Iron-deficiency anemia. Continue on iron supplementation. 6. Uncontrolled diabetes mellitus type 2. We will restart the patient's home dosage of Lantus at 100 units subcutaneous twice a day. 7. Morbid obesity. Aware. 8. Hypertension. Will add norvasc. cc: Tara Duvall MD [facility]
[2016-11-12] MEDS: NORVASC PO SCH (20:46)
[2016-11-12] MEDS: NEURONTIN PO SCH (20:46)
[2016-11-12] MEDS: COREG PO SCH (20:46)
[2016-11-12] MEDS: LANTUS SUBQ SCH (20:47)
[2016-11-12] MEDS: SODIUM CHLORIDE 0.9% INJ SCH (20:48)
[2016-11-12] MEDS: DULCOLAX PR SCH (20:48)
[2016-11-13] MEDS: CARAFATE LIQUID PO SCH ×4 (04:17→20:05)
[2016-11-13] MEDS: HUMULIN R SUBQ SCH ×4 (06:06→21:48)
[2016-11-13] MEDS: MOVANTIK PO SCH ×2 (06:06→06:09)
[2016-11-13] MEDS: MAXIPIME 1 GM/NS 1 GM/50 ML IVPB IV SCH ×2 (06:09→18:29)
[2016-11-13 06:57] LABS: ALBUMIN 2.2 g/dL (3.5-5.0); POTASSIUM 3.4 mmol/L (3.5-5.1)
[2016-11-13] MEDS: COREG PO SCH ×2 (08:27→20:06)
[2016-11-13] MEDS: TENORMIN PO SCH (08:28)
[2016-11-13] MEDS: LANTUS SUBQ SCH ×2 (08:30→20:08)
[2016-11-13 09:25] LABS: HEMOGLOBIN 7.1 g/dL (12.0-16.0); MCH 25.6 PG (27-31); MCHC 29.6 g/dL (33-37); MCV 86.6 FL (81-99); MPV 10.5 FL (7.4-10.4); RBC 2.77 XMIL (4.2-5.4)
--- NOTE | 2016-11-13 09:45 | PROGRESS NOTE ---
DATE: 11/13/2016 DATE SEEN: 11/13/2016 TIME SEEN: 08:10 SUBJECTIVE: Ms. Quiros is sitting on the side of the bed. She denies chest pain or increased work of breathing. She does have pain to her second finger from the left hand, secondary to redness from a knuckle towards the interior portion of the web of the finger. OBJECTIVE: Vital Signs: Her temperature 97.7 degrees, blood pressure is 138/53 , heart rate 71, respirations 14. She is currently on 2 L nasal cannula. Last recorded saturation 100%. She has had 480 in. She has had 2400 out per void. LABS: Sodium 137, potassium 3.4, chloride 108, CO2 23. BUN 48, creatinine 1.9 , glucose 146. Anion gap 6, calcium 8, phosphorus 2.6, albumin 2.2. White count 6.7, hemoglobin 7.2, hematocrit 24, with a platelet count of 200,000. PHYSICAL EXAMINATION: General: This is a 45-year-old white female. She is resting quietly on the side of the bed. She is waiting for her breakfast, though she was reminded that she is NPO secondary to having surgical intervention today per Dr. Mendez. HEENT: Normocephalic, atraumatic. Conjunctivae pale. She has pupils equal, round, and reactive to light. Mucous membranes moist. Neck: Supple. Trachea midline. No detection of jugular venous distention at her sitting position. Cardiovascular: Regular rate and rhythm with distant heart sounds. No murmur or gallop appreciated. Lungs: Diminished breath sounds. Clear to auscultation anterior on O2. Abdomen: Obese, soft, nontender. Positive bowel sounds. Hypoactive. Extremities: Right foot remains wrapped with Kerlix dressing. She continues with edema to the upper and lower extremities. No clubbing or cyanosis is noted. Integumentary: She has redness and swelling, as indicated, to her second finger between the index area by her joint. This is reddened and swollen. She continues with Kerlix to her right dressing with Dr. Mendez for plan for intervention today. Neurological: Alert and oriented x3. ASSESSMENT AND PLAN: 1. Chronic kidney disease Stage 4. Patient's creatinine is actually below or at her baseline. No need for intervention. 2. Fluid volume overload. She continues on Lasix 40 b.i.d. Adequate urine out. 3. Electrolytes and acid-base balance. These are stable. 4. Anemia. This remains low. She has already received 2 units of packed red blood cells. 5. Osteomyelitis with now intervention, possibly indicated on her left hand. Dr. Mendez to follow. I would like to thank you for allowing us to follow with this patient. Seen, data reviewed, discussed with Ganga Viera on 11/13/16. I agree with the above assessment and plan of care. rg Dictated by ARLENE Newman for Philippe Lino MD cc: ARLENE Newman MD [facility]
--- NOTE | 2016-11-13 10:30 | PROGRESS NOTE ---
DATE: 11/13/2016 SUBJECTIVE: No complaints. Better foot. Left hand, the 3rd finger and the 2nd finger remain kind of swollen with some erythema. PHYSICAL EXAMINATION: Vital Signs: Temperature 98.1 degrees, pulse 72, blood pressure 176/79, oxygen saturation is 99% on room air. General: She is alert, in no acute distress. Extremities: Left foot dressing is in place. Some drainage on this. The left 3rd finger has some swelling of the proximal phalangeal joint, some medial erythema. The 2nd finger on the distal aspect has a little bit of swelling and some white punctate areas. LABS: White count 6, hematocrit 24. Creatinine is 1.9, glucose 146. ASSESSMENT/PLAN: This is a 45-year-old female with a right diabetic foot infection. Given the appearance yesterday, I have recommended more debridement to facilitate ongoing wound healing, possible wound VAC placement after this. She has also developed some pain and swelling of her 3rd and 2nd fingers, possibly a gout flare. She has had gout in the past but we will aspirate the lesions today in the operating room. If pus, we will open and drain. Otherwise, we will send this for studies to evaluate for gout, uric acid crystals. cc: Haritha Mendez MD
[2016-11-13] MEDS ORDERED: PEPCID ONE (12:45)
--- NOTE | 2016-11-13 13:12 | PROGRESS NOTE ---
DATE: 11/13/2016 SUBJECTIVE: The patient is resting comfortably in bed. She is awaiting her scheduled procedure today in the OR. OBJECTIVE: Vital Signs: Temperature 98.1 degrees. Blood pressure 176/79, heart rate 72, respirations 17, O2 sat is 99% on room air. General: This is a morbidly obese female, lying in bed, in no acute distress. Head: Normocephalic, atraumatic. Heart: S1, S2. Normal. Regular rate and rhythm. Lungs: Clear to auscultation bilaterally. No crackles. No rales. Abdomen: Positive bowel sounds. Soft, obese, nontender, nondistended. Extremities: Right foot is wrapped in a clean, dry dressing. +1 edema in the left foot. The second and third fingers on the patient's left hand are erythematous and swollen. Neurologic: The patient is alert and oriented x3. LABS: White blood cell count 6.8, hemoglobin 7.1, hematocrit 25, platelets 207, 000. Sodium 137, potassium 3.4, chloride 109, CO2 23, BUN 48, creatinine 1.9. Glucose 146. Uric acid 10.8, calcium 8, phosphorus 2.6, albumin 2.2. ASSESSMENT AND PLAN: 1. Right foot osteomyelitis with diabetic wound infection status post debridement. The patient is scheduled to go to the operating room today for further debridement. Continue on IV antibiotic therapy. 2. Possible gout involving the index finger and 2nd finger of the left hand. We will start the patient on colchicine and prednisone. The patient's uric acid level was elevated at 10.8. 3. Volume overload. Continue with her oral Lasix. 4. Hypertension. Continue on the current antihypertensives. 5. Iron-deficiency anemia. Will transfuse the patient with 2 units of packed red blood cells today. 6. Uncontrolled diabetes mellitus type 2. Continue on Lantus 100 units subcutaneous every 12 hours. 7. Morbid obesity. Aware. 8. Protein calorie malnutrition. Aware. cc: Tara Duvall MD [facility]
[2016-11-13 14:33] LABS: DIFF NEEDED? NO
[2016-11-13] MEDS ORDERED: LR 1,000 ML ONE (14:34)
[2016-11-13] MEDS ORDERED: FENTANYL ONE ×2 (14:52→15:54)
[2016-11-13] MEDS ORDERED: DIPRIVAN 1% ONE (14:53)
[2016-11-13] MEDS: FOLIC ACID PO SCH (15:36)
[2016-11-13] MEDS: ICAR-C PO SCH (15:36)
[2016-11-13] MEDS: LASIX PO SCH ×2 (15:36→20:06)
[2016-11-13] MEDS: SODIUM CHLORIDE 0.9% INJ SCH ×2 (15:36→20:05)
[2016-11-13] MEDS: PROTONIX IV SCH ×2 (15:36→20:05)
[2016-11-13] MEDS: NORVASC PO SCH ×2 (15:37→20:06)
[2016-11-13] MEDS: SANTYL OINT TOP SCH (15:43)
[2016-11-13] MEDS ORDERED: KLOR-CON PO ONE (17:00)
--- NOTE | 2016-11-13 17:42 | OPERATIVE NOTE ---
PROCEDURE DATE: 11/13/2016 PREOPERATIVE DIAGNOSES: 1. Left 3rd digit of her hand fluid collection. 2. Right calcaneal wound. 3. Right lateral foot wound. POSTOPERATIVE DIAGNOSES: 1. Left 3rd digit of her hand fluid collection. 2. Right calcaneal wound. 3. Right lateral foot wound. PROCEDURES PERFORMED: 1. Aspiration of left proximal 3rd digit of her hand. 2. Excisional debridement of calcaneal wound 4 x 5 x 2 cm down to the level of periosteum. 3. Excisional debridement of the lateral right foot wound 6 x 2 cm x 2 cm deep down to the level of bone. ESTIMATED BLOOD LOSS: 10 mL. SPECIMENS: 1. Necrotic material from the wound of her foot. 2. Aspirate from the left 3rd finger for Gram stain, culture and for gout crystal studies. INDICATIONS: [age] old female with a longstanding right calcaneal wound who has developed a new wound on the right lateral aspect of her foot. Shows osteomyelitis in her foot and is on antibiotics. She has also recently developed some pain and swelling of her left fingers concerning for abscess or gouty flare. OPERATIVE NOTE: Risks, benefits, alternatives discussed with the patient and she consented to the procedure. She was seen in the preoperative area and surgery sites were marked. She was taken to the operating room, placed in the supine position. Monitored intravenous anesthesia was administered. Her left hand and right foot were prepped with Betadine and draped in the usual fashion. We started with the left hand and this was a clean field. We used an 18-gauge needle and after a time-out was performed the lateral aspect of the 3rd phalanx proximally we aspirated this. There is some thick what initially appeared to be purulent material here. As such, we used an 11 blade and made a 3 mm incision and expressing a large amount of what appeared to be white crystalloid fluid consistent with gouty tophi. We confirmed hemostasis, wrapped this wound and sent this fluid off for studies. After excluding this wound, we turned our attention to the right foot. The calcaneal wound we excised, there is minimal fibrinous tissue here but no purulence and no necrosis really but we excised this back to healthy bleeding tissue in all dimensions and then we turned our attention to the lateral aspect. There was a wound previously debrided on the distal aspect just proximal to the 5th toe that communicated with the more proximal lesion. We connected these 2, opened them and there is some fibrinous necrotic tissue in the bed that we debrided out. There is good bleeding of the tissues here. We packed both wounds with Vashe gauze and wrapped it with kerlex Tolerated it well. There is no identified complication. Counts correct x2. Transferred back to room. cc: Haritha Mendez MD [facility]
[2016-11-13] MEDS: NORCO-7.5 PO PRN (18:28)
[2016-11-13] MEDS: PREDNISONE PO SCH (18:34)
--- NOTE | 2016-11-13 20:00 | PROGRESS NOTE ---
DATE: 11/13/2016 SUBJECTIVE: The patient has osteomyelitis of the calcaneus of the right foot. She also was found to have gout crystals in the 3rd finger of the left hand. MEDICATIONS: Patient is receiving cefepime, the dose of which has been decreased because of the patient's end-stage renal disease. OBJECTIVE: Vital Signs: Temperature is 98.4 degrees, pulse 70, respirations 14, blood pressure 165/62. General: This is an obese, young female who is in no acute distress. Lungs: Clear to auscultation. Cardiovascular: Regular heart rate. Extremities: The right arm has a PICC in it. The site is not erythematous or swollen. The patient has a large dressing around the right foot. There also was a dressing around the 3rd finger of the left hand. All the dressings are intact. LABS AND X-RAY: CBC today shows a white count of 6860, hemoglobin 7.1, and platelet count 207,000. Patient's 3rd finger material was found to have crystals in it compatible with gout. ASSESSMENT AND PLAN: The patient has osteomyelitis of the right foot. The plan is to continue cefepime for 6 weeks following today's debridement. Continue cefepime pending further culture results. COMORBIDITIES: Include diabetes mellitus, obesity, peripheral neuropathy, and end-stage renal disease. cc: Pola English MD
[2016-11-13] MEDS: DULCOLAX PR SCH (20:06)
[2016-11-13] MEDS: NEURONTIN PO SCH (20:06)
[2016-11-13] MEDS ORDERED: COLCRYS PO ONE (21:00)
[2016-11-14] MEDS: CARAFATE LIQUID PO SCH ×4 (02:23→20:01)
[2016-11-14] MEDS: MAXIPIME 1 GM/NS 1 GM/50 ML IVPB IV SCH ×2 (05:12→17:36)
[2016-11-14] MEDS: HUMULIN R SUBQ SCH ×4 (06:26→20:58)
[2016-11-14] MEDS: MOVANTIK PO SCH (06:29)
[2016-11-14 06:42] LABS: MCH 25.7 PG (27-31); MCHC 29.6 g/dL (33-37); MCV 86.8 FL (81-99); MPV 10.4 FL (7.4-10.4); RBC 3.11 XMIL (4.2-5.4)
[2016-11-14] MEDS ORDERED: INSULIN PEN NEEDLES ONE (07:10)
[2016-11-14 07:45] LABS: ALBUMIN 2.6 g/dL (3.5-5.0); CALCIUM 8.9 mg/dL (8.8-10.2); POTASSIUM 4.8 mmol/L (3.5-5.1)
[2016-11-14] MEDS: ICAR-C PO SCH (09:22)
[2016-11-14] MEDS: PROTONIX IV SCH ×2 (09:22→20:01)
[2016-11-14] MEDS: LASIX PO SCH ×2 (09:23→20:01)
[2016-11-14] MEDS: NORVASC PO SCH ×2 (09:23→20:01)
[2016-11-14] MEDS: TENORMIN PO SCH (09:23)
[2016-11-14] MEDS: COREG PO SCH ×2 (09:24→20:01)
[2016-11-14] MEDS: FOLIC ACID PO SCH (09:24)
[2016-11-14] MEDS: PREDNISONE PO SCH (09:24)
--- NOTE | 2016-11-14 09:43 | PROGRESS NOTE ---
DATE: 11/14/2016 SUBJECTIVE: No events after surgery last night. Feels well. OBJECTIVE: Temperature 97.9, pulse 72, blood pressure 180/80. Her saturation is 100% on room air. Right foot dressing is clean, dry, and intact. The left hand dressing is clean, dry, and intact. LABORATORY DATA: White count is 8, hematocrit 27. Creatinine is 1.9. Glucose is 180s-200s. Synovial fluid was positive for gout crystals. ASSESSMENT AND PLAN: A 45-year-old female with diabetic foot wounds status post multiple debridements and now with a gout flare confirmed with aspiration of left finger collection. We referred management of her gout to the hospitalist service. Regarding her foot, her wounds are cleaning up nicely. She is on adequate antibiotics. I think we can place a wound VAC today and work towards discharge in next day or 2 when this is arranged. She got a PICC line and will need broad-spectrum antibiotics for osteomyelitis of her foot. We will continue to follow along. cc: Haritha Mendez MD
[2016-11-14] MEDS: LANTUS SUBQ SCH ×3 (12:45→20:01)
[2016-11-14] MEDS ORDERED: COLCRYS PO ONE (14:56)
--- NOTE | 2016-11-14 15:13 | PROGRESS NOTE ---
DATE: 11/14/2016 SUBJECTIVE: The patient is resting comfortably in bed. She has no complaints at this time. OBJECTIVE: Vital Signs: Temperature 97.9 degrees, blood pressure 180/80, heart rate 72, respirations 16, O2 saturations 99% on room air. General: This is a morbidly obese female, lying in bed, in no acute distress. Head: Normocephalic, atraumatic. Heart: S1, S2. Normal. Regular rate and rhythm. Lungs: Clear to auscultation bilaterally. Abdomen: Positive bowel sounds. Soft, obese, nontender, nondistended. Extremity: 2+ edema bilaterally. The right foot is wrapped in a clean, dry dressing. LABS: White blood cell count 8, hemoglobin 8, hematocrit 27, platelets 247,000. Sodium 132, potassium 4.6, chloride 97, CO2 23, BUN 49, creatinine 1.9, glucose 189, albumin 2.6. ASSESSMENT AND PLAN: 1. Right foot osteomyelitis status post debridement x2. Continue on IV antibiotic therapy and wound care. Further management as per Dr. Mendez. 2. Gout. Continue on prednisone and colchicine. 3. Volume overload. Continue on scheduled Lasix. 4. Uncontrolled diabetes mellitus type 2. Continue on Lantus 100 units subcutaneous every 12 hours. 5. Iron deficiency anemia. The patient's hemoglobin and hematocrit is improved after receiving 2 units of packed red blood cells yesterday. 6. Morbid obesity. Aware. cc: Tara Duvall MD
[2016-11-14] MEDS: SANTYL OINT TOP SCH (15:30)
--- NOTE | 2016-11-14 15:43 | PROGRESS NOTE ---
DATE: 11/14/2016 TIME SEEN: 0840. SUBJECTIVE: Ms. Quiros is sitting on the side of the bed. She denies any complaints of chest pain or increased work of breathing. OBJECTIVE: Her most recent vital signs, her temperature is 97.2, blood pressure 148/79, heart rate 68, respirations 14. She is on 2 L nasal cannula. Last recorded saturation is 100%. She has had 450 in. She has had 1910 out per void. LABS: This a.m. sodium 132, potassium 4.8, chloride 97, CO2 of 23, BUN 49, creatinine 1.9, glucose 189. Her anion gap is 12, calcium 8.9, phosphorus 2.7, albumin 2.6. PHYSICAL EXAMINATION: General: This is a 45-year-old white female. She is resting quietly. She is in no acute distress. Skin: Warm and dry. HEENT: Normocephalic, atraumatic. Conjunctivae pale. She has LOVE. Mucous membranes moist. Neck: Supple. Trachea midline. No JVD. Cardiovascular: Regular rate and rhythm with distant heart sounds. No murmur or gallop appreciated. Lungs: Diminished breath sounds. Clear to auscultation anterior. She remains on O2. Abdomen: Obese, soft, nontender. Positive bowel sounds. Hypoactive as noted. Extremities: Right foot is now in an Mickey wrap secondary to post surgical intervention. Her left finger remains in Kerlix dressing. No drainage noted. She continues with 1+ lower extremity edema. No clubbing or cyanosis to the left. Genitourinary: She has adequate void, not inspected. Neurological: Alert and oriented x3. ASSESSMENT AND PLAN: 1. Chronic kidney disease stage 4. Patient continues at her historical baseline of 1.9. No indications for any intervention. 2. Fluid volume overload. She continues to be responsive to Lasix 40 mg b.i.d. , adequate urine out. 3. Electrolytes and acid-base balance. They are stable. 4. Anemia. Has been low. She has received 1 unit of packed red blood cells. 5. Osteomyelitis with debridement of wound, both right foot and middle finger left hand, per Dr. Mendez. I would like to thank you for allowing us to follow with this patient. Seen, data reviewed, discussed with Ganga Viera on 11/14/16. I agree with the above assessment and plan of care. rg Dictated by ARLENE Newman for Philippe Lino MD cc: ARLENE Newman MD [facility]
--- NOTE | 2016-11-14 17:21 | PROGRESS NOTE ---
DATE: 11/14/2016 PRESENT ILLNESS: The patient has osteomyelitis of the right calcaneus. MEDICATIONS: The patient is on cefepime in a dose which has been decreased because of the patient's end-stage renal disease. PHYSICAL EXAMINATION: Vital Signs: Temperature is 97.7, pulse 59, respirations 16, blood pressure 164/70. General: This is an obese, young female. She is in no acute distress. Cardiovascular: Heart rate is regular. Lungs: Clear to auscultation. Abdomen: Soft and nontender. Extremities: The patient has a PICC in the right arm. The site is not draining or tender. The patient has a large dressing around her right foot. The dressing is intact. LAB AND X-RAY: There is no new x-ray. The CBC today shows a white count of 8070, hemoglobin 8 and platelet count is 241,000. Creatinine is 1.9. The GFR is 29. Thus far, other than the one positive culture growing Providencia and Pseudomonas all the other cultures have been negative. ASSESSMENT AND PLAN: The patient has osteomyelitis of the right calcaneus. The plan is to continue the cefepime for 6 weeks. I plan to see the patient in 3 weeks from today and then again at 6 weeks, at which time hopefully we will be able to stop her antibiotics. COMORBIDITIES: Include diabetes mellitus, obesity, peripheral neuropathy and end-stage renal disease. cc: Pola English MD
[2016-11-14] MEDS: SODIUM CHLORIDE 0.9% INJ SCH (20:00)
[2016-11-14] MEDS: NEURONTIN PO SCH (20:01)
[2016-11-14] MEDS: DULCOLAX PR SCH (20:01)
[2016-11-15] MEDS: CARAFATE LIQUID PO SCH ×2 (01:55→08:37)
[2016-11-15] MEDS: MAXIPIME 1 GM/NS 1 GM/50 ML IVPB IV SCH (06:03)
[2016-11-15] MEDS: MOVANTIK PO SCH (06:03)
[2016-11-15] MEDS: HUMULIN R SUBQ SCH ×2 (06:16→11:30)
[2016-11-15 07:53] VITALS: BP 154/66
[2016-11-15] MEDS: TENORMIN PO SCH (08:37)
[2016-11-15] MEDS: FOLIC ACID PO SCH (08:37)
[2016-11-15] MEDS: PREDNISONE PO SCH (08:37)
[2016-11-15] MEDS: NORVASC PO SCH (08:37)
[2016-11-15] MEDS: PROTONIX IV SCH (08:37)
[2016-11-15] MEDS: LASIX PO SCH (08:37)
[2016-11-15] MEDS: ICAR-C PO SCH (08:37)
[2016-11-15] MEDS: COREG PO SCH (08:37)
[2016-11-15] MEDS: LANTUS SUBQ SCH (08:38)
[2016-11-15 09:32] LABS: ALBUMIN 2.9 g/dL (3.5-5.0); CALCIUM 9.1 mg/dL (8.8-10.2); POTASSIUM 4.2 mmol/L (3.5-5.1)
[2016-11-15 10:11] LABS: HEMATOCRIT 27.6 % (37.0-47.0); HEMOGLOBIN 8.2 g/dL (12.0-16.0); MCH 25.5 PG (27-31); MCHC 29.7 g/dL (33-37); MCV 85.7 FL (81-99); MPV 10.3 FL (7.4-10.4); RBC 3.22 XMIL (4.2-5.4)
[2016-11-15] MEDS: SANTYL OINT TOP SCH (13:01)
--- NOTE | 2016-11-15 13:38 | PROGRESS NOTE ---
DATE: 11/15/2016 SUBJECTIVE: Feels well. Ready go home. Vac was placed yesterday. Hand feels better. OBJECTIVE: Temperature is 97.4 degrees, pulse 66, blood pressure 154/66. Right foot with wound VAC in place. Left hand middle finger with decreased pain and swelling. Labs reviewed. White count 7. Hematocrit 27. ASSESSMENT AND PLAN: A 45-year-old female with chronic diabetic foot wounds, status post multiple debridements. She is on IV antibiotics for osteomyelitis and wound VAC is in place. She can see me back at [facility] in 2 weeks. cc: Haritha Mendez MD
--- NOTE | 2016-11-15 14:19 | PROGRESS NOTE ---
DATE: 11/15/2016 SUBJECTIVE: She is feeling well today. She is awaiting discharge. OBJECTIVE: Vital Signs: Blood pressure 154/66, heart rate 63, respirations 14, afebrile. General: She is an obese white female in no acute distress. Skin: Warm and dry. HEENT: Conjunctivae are pink. Pupils are equal. Oropharynx is clear. Neck: Neck veins are not visible. Heart: Regular. Lungs: Equal. No crackles. Abdomen: Soft, nontender. Bowel sounds present. Extremities: Have trace edema. No clubbing or cyanosis. LABORATORY DATA: BUN 53 and creatinine 1.9. IMPRESSIONS: 1. Chronic kidney disease, stage 3. At baseline. 2. Volume status euvolemic. 3. Hypertension, acceptable. 4. Osteomyelitis, on antibiotics. cc: Philippe Lino MD
--- NOTE | 2016-11-23 15:04 | DISCHARGE SUMMARY ---
ADMISSION DATE: 11/04/2016 DISCHARGE DATE: 11/15/2016 FINAL DISCHARGE DIAGNOSES: 1. Right foot osteomyelitis, status post debridement x2. 2. Gout. 3. Volume overload. 4. Uncontrolled diabetes mellitus type 2. 5. Morbid obesity. 6. Iron deficiency anemia. 7. Hypertension. CONSULTATIONS: 1. General Surgery consultation with Dr. Mendez. 2. ID consultation with Dr. English. 3. Nephrology consultation with Dr. Lino. PROCEDURES PERFORMED: 1. Excisional debridement of the right calcaneal wound performed on 11/05/2016. 2. Excisional debridement of the right distal fifth metatarsal lateral wound. HOSPITAL COURSE: Ms. Quiros is a 45-year-old female with a history of multiple medical problems, who presented to the ER with an infected right foot. A bone scan was done that revealed osteomyelitis in the bases of the metatarsals of the right foot, specifically the fifth metatarsal. In light of this finding, the patient was admitted to the Hospitalist Service. Cultures were obtained, and General Surgery and ID were consulted. The patient was taken to the OR on 11/05/2016 at which time debridement was performed. Cultures were also obtained during this debridement. The cultures ultimately grew out pseudomonas and Providencia. The patient's IV antibiotics were adjusted by Dr. English based on the culture results. Over the course of the hospital stay, the patient's creatinine started to rise, and so IV fluids were started. Nephrology was also consulted for further recommendations. With IV fluid hydration, the patient's creatinine improved; however, the patient became volume overloaded, so the IV fluid was discontinued, and the patient was restarted on Lasix at a higher dosage. With the initiation of Lasix, the patient's volume status improved, and her creatinine stabilized to better than her baseline. The patient did develop gout involving the left finger and was started on colchicine and prednisone. The patient did require a second debridement of her foot on 11/08/2016. The patient continued to improve clinically and was ultimately cleared for discharge home with IV antibiotics on 11/15/2016. DISCHARGE MEDICATIONS: 1. Norvasc 5 mg p.o. twice a day. 2. Coreg 6.25 p.o. every 12 hours. 3. Colchicine 0.6 mg p.o. daily x6 days. 4. Lasix 40 mg p.o. twice a day. 5. I-Car C 1 tab oral daily. 6. Medrol Dosepak use as directed. 7. Maxipime 1 g IV every 12 hours x6 weeks. 8. Folic acid 1 tab oral daily. 9. Levels 7.5/325 one tab oral every 4 hours p.r.n. for pain. 10.Lantus 100 units subcutaneous twice a day. 11.Neurontin 300 mg p.o. at bedtime. 12.Protonix 40 mg p.o. daily. DISCHARGE DIET: 1800 ADA diet, low sodium diet. ACTIVITY: As tolerated. FOLLOWUP INSTRUCTIONS: The patient will need to follow up with Dr. English in 3 weeks. The patient will also need to follow up with Dr. Mendez as scheduled by his office. cc: Tara Duvall MD
--- NOTE | 2016-11-29 16:06 | PROGRESS NOTE ---
DATE: 11/29/2016 PRESENT ILLNESS: The patient has osteomyelitis of the right calcaneus. She has been bleeding very briskly from the right heel. MEDICATIONS: The patient has been receiving cefepime at home. The dose was decreased because of the patient's end-stage renal disease. PHYSICAL EXAMINATION: Vital Signs: Temperature is 98.8, pulse 82, respirations 20, blood pressure 148/55. Generally: This is an obese, young female, who is in no acute distress. Lungs: Clear to auscultation. Cardiovascular: Regular heart rate. Abdomen: Soft and nontender. Extremities: Patient has a PICC in the right arm. In the right leg, the right foot has a large dressing around it. The dressing is intact. LAB AND X-RAY: The x-ray of the right foot shows cellulitis and soft tissue gas and calcaneus osteomyelitis. The patient's prior culture from the heel grew Pseudomonas and Providencia. CBC today shows a white count of 7100, hemoglobin 6.6 and platelet count 232,000. Creatinine is 2.7. GFR is 19. ASSESSMENT AND PLAN: Patient has cellulitis and osteomyelitis of the right heel. For now, we are going to be treating the patient with cefepime in a reduced dose as mentioned above. It is my understanding that at the first of the week, most likely on Friday, the patient will be having a right [id number] amputation performed. COMORBIDITIES: Include diabetes mellitus, obesity, peripheral neuropathy and end-stage renal disease. cc: Pola English MD
--- NOTE | 2016-12-02 09:46 | PROGRESS NOTE ---
DATE: 12/02/2016 PRESENT ILLNESS: The patient has a severe right foot infection which includes osteomyelitis of the calcaneus. She has been bleeding from the infection. MEDICATIONS: The patient is on cefepime. PHYSICAL EXAMINATION: Vital Signs: Temperature is 98.7 degrees, pulse 68, respirations 20, blood pressure 154/57. General: This is an obese, young female. She is in no acute distress. Lungs: Clear to auscultation. Cardiovascular: Regular heart rate. Abdomen: Soft and nontender. Extremities: Patient has a PICC in the right arm. The site is not erythematous or swollen. The patient has a dressing on her right foot. The foot has a foul odor to it. The dressing is intact. LAB AND X-RAY: CBC today shows a white count of 5130, hemoglobin 7.7 and platelet count 253,000. Creatinine is 2.7. GFR is 19. A culture taken from the patient's foot is growing Enterococcus. ASSESSMENT AND PLAN: Patient has cellulitis and osteomyelitis of the right foot with involvement of the calcaneus. My plan is to discontinue cefepime and start the patient on Zosyn because of the recent culture which showed Enterococcus. Patient is scheduled today to have a right below- the-knee amputation to be performed by Dr. Field. COMORBIDITIES: 1. Diabetes mellitus. 2. Obesity. 3. Peripheral neuropathy. 4. End stage renal disease. cc: Pola English MD
== END 2016-11-15 17:13 | disposition home health service (06) ==
LOC: ED 10:17 → EDIPHOLD 13:49 → SUATTDRO 13:49 → 3N 18:12
PROVIDERS: ATTEND Internal Medicine
PROC: MS.IRRD (2016-11-13 13:25)

== ENCOUNTER 2016-11-29 08:48 | Inpatient (IN) ==
[2016-11-29 10:47] LABS: MANUAL DIFF NEEDED? NO
[2016-11-29 11:04] LABS: INR 1.2; PROTIME 12.8 Seconds (9.2-11.7); PTT 32.2 Seconds (22.0-36.0)
[2016-11-29 11:11] LABS: BASO% 0.4 % (0.0-0.8); EOS# 0.14 X1000 (0.0-0.7); HEMATOCRIT 22.3 % (37.0-47.0); HEMOGLOBIN 6.6 g/dL (12.0-16.0); IMM GRAN# 0.02 X1000 (0.0-0.04); IMM GRAN% 0.3 % (0.0-0.5); LYMPH# 0.52 X1000 (1.2-3.4); LYMPH% 7.3 % (20.5-51.1); MCH 25.1 PG (27-31); MCHC 29.6 g/dL (33-37); MCV 84.8 FL (81-99); MONO# 0.51 X1000 (0.11-0.59); MONO% 7.2 % (1.7-9.3); MPV 10.4 FL (7.4-10.4); NEUT% 82.8 % (42.2-75.2); PLT 232 X1000 (130-400); RBC 2.63 XMIL (4.2-5.4)
--- NOTE | 2016-11-29 11:27 | Diag Imaging Result Doc PS360 ---
EXAM: FOOT COMPLETE RIGHT HISTORY: foot pain TECHNIQUE: Portable three views COMMENT: The current study is compared with that of 10/24/2016. There is considerable soft tissue swelling with soft tissue gas throughout the lateral side of the foot. There is deformity of the distal for fifth metatarsal which is similar in appearance to the previous study. There is a fairly well circumscribed erosion of the base of the fifth metatarsal which was also present previously. A cystlike lucency is present in the adjacent portion of the cuboid and also in the third cuneiform distally and laterally. There is a fracture of the subtalar portion of the calcaneus which was not present at the time the previous study. There is also erosion of the plantar surface of the calcaneus which was not present previously. There is adjacent soft tissue gas. IMPRESSION: Cellulitis with soft tissue gas particularly over the heel and lateral foot. Fracture and osteomyelitis of the calcaneus. Chronic changes in the fifth metatarsal, cuboid and third cuneiform which may be related to chronic arthritic changes and previous osteomyelitis. Electronically signed by Jd Jaimes 11/29/2016 11:25 AM
[2016-11-29 11:38] LABS: ALBUMIN 2.6 g/dL (3.5-5.0); CALCIUM 8.5 mg/dL (8.8-10.2); POTASSIUM 4.8 mmol/L (3.5-5.1); TOTAL BILIRUBIN 0.41 mg/dL (0.20-1.00); TOTAL PROTEIN 7.3 g/dL (6.3-8.3)
[2016-11-29] MEDS ORDERED: NS 1,000 ML ONE (12:48)
--- NOTE | 2016-11-29 13:08 | CONSULTATION ---
DATE OF CONSULTATION: 11/29/2016 HISTORY OF PRESENT ILLNESS: This is a 45-year-old female well known to me, who has had chronic longstanding diabetic foot wounds for 6 months now. She has been debrided multiple times, recently admitted, debrided earlier this week, was seen in my office yesterday with plans to amputate her leg on Friday. She is on IV antibiotics at home. She states she was walking to the bathroom, heard a pop and experienced large amount of bleeding from her wound prompting ER visit. She denies any orthostasis type symptoms or dizziness. She has been hemodynamically stable in the ER. MEDICAL HISTORY: 1. Diabetes. 2. Chronic kidney disease. 3. Hypertension. 4. Some degree of medical noncompliance. 5. Obesity with obstructive sleep apnea. 6. Reflux. SURGICAL HISTORY: She has had ovarian cyst removed, hysterectomy, tubal ligation, multiple debridements of her right foot and the section. SOCIAL HISTORY: Denies any tobacco, alcohol, or drugs. FAMILY HISTORY: Negative for cancer. REVIEW OF SYSTEMS: Ten-point review of systems negative. PHYSICAL EXAMINATION: Vital Signs: Temperature is 98.2 degrees, pulse 83, blood pressure 146/95, oxygen saturation 99% on room air. General: She is alert, in no acute distress. Cardiovascular: Normal rate, regular rhythm. Pulmonary: She is on room air. Extremities: Her right foot wound has stable changes to the lateral wound and a calcaneal wound. This is very large. I do not see any active bleeding now. The foot is erythematous, but overall slightly improved from yesterday when I saw it. I do not see any tena necrosis or purulence at this point. There was a large amount of old-appearing blood on the dressing. LABS: Reviewed. White count is normal at 7, hematocrit is 22, platelets 232, creatinine 2.7, glucose 144. ASSESSMENT/PLAN: A 45-year-old female with multiple medical problems, chronic diabetic foot wound. She was scheduled for a below-knee amputation on the right side on Friday. Had some bleeding from her wound today. We will admit her for wound monitoring. She has a difficult time taking care of herself at home, so make sure she is optimized for surgery on Friday. The hospitalists have seen her and appreciate their help taking care of her. From a surgical standpoint, she will just need wet-to-dry dressings twice daily, more frequently as needed for drainage, and plans for OR on Friday. Will continue to follow along. cc: Haritha Mendez MD
--- NOTE | 2016-11-29 14:34 | HISTORY AND PHYSICAL ---
CHIEF COMPLAINT: Right foot pain. HISTORY OF PRESENT ILLNESS: Ms. Quiros is an unfortunate 45-year-old female. She has a history of morbid obesity, along with multiple other comorbidities, also with a right foot diabetic ulcer which has been followed by Dr. Mendez, both inpatient and outpatient. She actually had excisional debridement of right calcaneal wound to the level of the bone on 11/27/[address] Mendez. Unfortunately, all therapies have failed and she is scheduled for amputation on Friday; however, today she stood up from a sitting position and heard a pop in her right foot, and immediately saw quite a bit of blood coming from the calcaneal wound in her heel. She called 911 and came to the hospital. Dr. Mendez has evaluated her in the ER and thinks she needs to stay over the weekend in preparation for surgery on Friday, so will admit her now for further treatment and evaluation. We went ahead and ordered a foot x-ray and it does show that she has a new calcaneal fracture along with multiple areas of osteomyelitis in subcutaneous tissue. She is on IV antibiotics at home, followed by Dr. Pola English. PAST MEDICAL HISTORY: 1. Chronic right diabetic foot ulcer/osteomyelitis. 2. Morbid obesity. 3. Pickwickian syndrome. 4. Congestive heart failure, diastolic. 5. Severe pulmonary hypertension. 6. Type 2 diabetes. 7. Anemia of chronic disease. 8. Obstructive sleep apnea. 9. GERD. 10. Peripheral neuropathy. PAST SURGICAL HISTORY: She has had an ovarian cyst removed, hysterectomy, tubal ligation, multiple right foot incisions and drainages, and a section. SOCIAL HISTORY: Patient denies tobacco, alcohol, or drug use. FAMILY HISTORY: Noncontributory. REVIEW OF SYSTEMS: Fourteen-point review of systems was obtained and found to be negative with the exception of the HPI. ALLERGIES: Vancomycin, ciprofloxacin, and strawberries. HOME MEDICATIONS: Atenolol 25 mg daily. Lasix 40 mg b.i.d. Neurontin 600 mg at bedtime. NovoLog as directed. Lantus 100 units subcutaneously b.i.d. hydrochlorothiazide 1 daily. Metolazone 5 mg daily. Protonix 40 mg daily. She is also on cefepime, followed by Dr. English. PHYSICAL EXAMINATION: VITAL SIGNS: Blood pressure is 146/55, heart rate is 83, respiratory rate 18, O2 saturation 99% on room air, temperature 98.2 degrees. GENERAL: This is a morbidly obese, female, lying in hospital bed in no acute distress. NEUROLOGIC: The patient is awake, alert, and oriented. Follows commands without focal deficits. HEENT: Head is atraumatic and normocephalic. Her pupils are equal, round, and reactive to light. Oral mucosa is moist. Trachea is midline. NECK: There is no JVD and no carotid bruits. CHEST: Diminished at the bases, but clear to auscultation bilaterally. CARDIOVASCULAR: Regular rate and rhythm. S1 and S2 noted. No murmurs, gallops , clicks, rubs. GASTROINTESTINAL: Obese, soft, nondistended. Bowel sounds are positive. EXTREMITIES: With 1+ edema, diminished pulses, and large right calcaneal ulcer. Sensation is decreased bilaterally. DIAGNOSTIC DATA: Foot x-ray shows cellulitis with soft tissue gas, particularly over the heel and lateral foot, fracture and osteomyelitis of the calcaneus, chronic changes in the 5th metatarsal, cuboid, and 3rd cuneiform, which may be related to chronic arthritic change and previous osteomyelitis. WBC 7.1, hemoglobin 6.6, hematocrit 22.3, platelet count 232,000. INR 1.2. Sodium 134, potassium 4.8, chloride 97, CO2 of 23, anion gap 14, BUN 62, creatinine 2.7, glucose 144, calcium 8.56. LFTs within normal limits. Lactate is 0.7. ASSESSMENT AND PLAN: 1. Acute right foot pain secondary to new calcaneal fracture on top of osteomyelitis and cellulitis. Dr. Mendez has been consulted and amputation is scheduled for Friday. We will continue antibiotics without Dr. English' assistance. We went ahead and vic a new set of blood cultures to ensure we are treating the right pathogen. 2. Acute on chronic anemia. Hemoglobin and hematocrit today are 6.6 and 22.3. We are going to transfuse 2 units of PRBCs with 20 mg of Lasix in between. The etiology is anemia of chronic disease with possible mild blood loss from recent surgeries. 3. Diabetes mellitus. Chronic and stable. Continue home medications. Add pattern sugars and sliding scale insulin. 4. Chronic kidney disease. BUN and creatinine appear to be at baseline. We will continue to monitor. 5. Hypertension: Chronic and stable. Continue home medications. 6. Pulmonary hypertension. Chronic and stable. Continue home medications. Continue to monitor. 7. Morbid obesity. Patient has been highly advised for weight loss. We will continue daily education. 8. Deep vein thrombosis prophylaxis with heparin subcutaneously and we will discontinue this the day before surgery. Dictated by ARLENE Trimble for Aurelio Schmidt MD cc: ARLENE Trimble MD [facility]
[2016-11-29] MEDS ORDERED: INSULIN PEN NEEDLES ONE (16:30)
[2016-11-29] MEDS: MAXIPIME 1 GM/NS 1 GM/50 ML IVPB IV SCH (20:16)
[2016-11-29] MEDS: HEPARIN SUBQ SCH (20:17)
[2016-11-29] MEDS: NEURONTIN PO SCH (20:18)
[2016-11-29] MEDS: LASIX PO SCH (20:18)
[2016-11-29] MEDS: LANTUS SUBQ SCH (20:18)
[2016-11-29] MEDS: NORCO-7.5 PO PRN (22:31)
[2016-11-30] MEDS: MAXIPIME 1 GM/NS 1 GM/50 ML IVPB IV SCH ×2 (03:19→16:13)
[2016-11-30] MEDS: HYZAAR 50/12.5 MG PO SCH (09:00)
[2016-11-30] MEDS ORDERED: INSULIN ASPART 1 UNIT SQ SCH (09:00)
[2016-11-30] MEDS: PROTONIX PO SCH (09:00)
[2016-11-30] MEDS: LASIX PO SCH ×2 (09:00→20:23)
[2016-11-30] MEDS: TENORMIN PO SCH (09:00)
[2016-11-30] MEDS: ZAROXOLYN PO SCH (09:00)
[2016-11-30] MEDS: LANTUS SUBQ SCH ×2 (09:01→22:02)
[2016-11-30 09:22] LABS: HEMATOCRIT 25.8 % (37.0-47.0); HEMOGLOBIN 7.9 g/dL (12.0-16.0); MCHC 30.6 g/dL (33-37); MCV 84.9 FL (81-99); MPV 10.4 FL (7.4-10.4); RBC 3.04 XMIL (4.2-5.4)
[2016-11-30] MEDS: HEPARIN SUBQ SCH ×2 (09:35→20:23)
[2016-11-30 09:42] LABS: CALCIUM 8.8 mg/dL (8.8-10.2); POTASSIUM 4.5 mmol/L (3.5-5.1)
--- NOTE | 2016-11-30 11:35 | PROGRESS NOTE ---
DATE: 11/30/2016 SUBJECTIVE: Today, Ms. Quiros refers to be doing okay. Still has some discomfort in the right lower extremity. Ms. Quiros was admitted yesterday for management of right diabetic foot. According to her, she has been seeing Dr. Mendez since June of this year for diabetic foot. Has had multiple debridements on the foot. The last one was done on 11/27/2016. Has also been on IV antibiotics. However the foot has not been healing adequately. Yesterday, it started bleeding more than usual with a very funny smell, so she came in, where she was evaluated. Hemoglobin was 6.6 and patient was transfused 2 PRBCs, and this morning hemoglobin is 7.9. OBJECTIVE: Vital signs: Blood pressure is 143/54, pulse of 76, respirations 18 , temperature 98.6 degrees. General: Ms. Quiros is a 45-year-old female, morbidly obese. She is in bed. She did not seem to be in any distress. HEENT: Mucosa pink and moist. Anicteric. Acyanotic. Neck: Supple. Chest: Good air entry bilaterally. No crepitations. No rhonchi. Cardiovascular: Regular rate and rhythm. Abdomen: Soft, nontender. Extremities: No pedal edema. The right lower extremity has a sterile dressing over the heel and the sole of the foot. It smells really offensive. LABORATORY DATA: WBC is 6.14, hemoglobin is 7.9, and platelet count 244,000. Chemistry is reviewed. Sodium is 134, potassium is 4.5, chloride is 98, bicarbonate is 23, and creatinine is 2.5, which is not new. Patient runs anywhere between 1.38 and 3. ASSESSMENT: 1. Anemia secondary to acute on chronic blood loss on top of chronic medical illness. 2. Right foot pain secondary to new calcaneal fracture on top of osteomyelitis with cellulitis. 3. Diabetic foot. 4. Diabetes mellitus. 5. Chronic kidney disease, stage 4. 6. Hypertension. 7. Morbid obesity with body mass index of 58.7. 8. Suspected sleep apnea. So, in general, I think Ms. Quiros is relatively stable. She has been started on cefepime, which covers the Gram-negative rods that were isolated the last time she was in hospital, which where Providencia rettgeri and Pseudomonas aeruginosa. The patient is being followed also by Surgery and Infectious Disease. There is a plan for below-knee amputation of the right leg due to failed antibiotic therapy for osteomyelitis. We will continue aggressively monitoring and controlling her diabetes mellitus. cc: Aurelio Schmidt MD MTDD
[2016-11-30] MEDS: NORCO-7.5 PO PRN ×2 (16:27→22:01)
[2016-11-30] MEDS: NEURONTIN PO SCH (20:23)
[2016-12-01] MEDS: NORCO-7.5 PO PRN ×2 (04:49→20:24)
[2016-12-01] MEDS: MAXIPIME 1 GM/NS 1 GM/50 ML IVPB IV SCH ×2 (04:49→17:16)
[2016-12-01 06:35] LABS: HEMATOCRIT 24.8 % (37.0-47.0); HEMOGLOBIN 7.5 g/dL (12.0-16.0); MCH 26.2 PG (27-31); MCHC 30.2 g/dL (33-37); MCV 86.7 FL (81-99); MPV 10.3 FL (7.4-10.4); RBC 2.86 XMIL (4.2-5.4)
[2016-12-01 07:07] LABS: CALCIUM 8.5 mg/dL (8.8-10.2); POTASSIUM 4.2 mmol/L (3.5-5.1)
[2016-12-01] MEDS: LANTUS SUBQ SCH ×2 (08:40→22:41)
[2016-12-01] MEDS: PROTONIX PO SCH (08:41)
[2016-12-01] MEDS: HYZAAR 50/12.5 MG PO SCH (08:41)
[2016-12-01] MEDS: LASIX PO SCH ×2 (08:41→20:25)
[2016-12-01] MEDS: HEPARIN SUBQ SCH ×2 (08:42→20:25)
[2016-12-01] MEDS: ZAROXOLYN PO SCH (08:42)
[2016-12-01] MEDS: TENORMIN PO SCH (08:42)
--- NOTE | 2016-12-01 12:40 | PROGRESS NOTE ---
DATE: 12/01/2016 SUBJECTIVE: The patient has not voiced any new complaints. OBJECTIVE: Vital signs: She is afebrile. Vital signs are stable. General: Alert and oriented x4. No acute distress. Extremities: Right foot is dressed. LABORATORY: CBC and metabolic profile reviewed and unremarkable. ASSESSMENT AND PLAN: A 45-year-old female with nonhealing diabetic foot ulcer and infection with chronic osteomyelitis. She is scheduled for BKA tomorrow. Her questions were answered. cc: Cruz Arce MD
--- NOTE | 2016-12-01 16:27 | PROGRESS NOTE ---
DATE: 12/01/2016 SUBJECTIVE: Feeling in good spirits. She does understand surgery tomorrow with a plan on doing a [id number] amputation per Dr. Mendez. She has had this diabetic foot ulcer and infection since June by her report. PHYSICAL EXAMINATION: Vital signs: Afebrile, temperature 98.2 degrees, pulse 67, respirations 20, blood pressure 141/67. HEENT: Pupils are equal, round. CVP less than 6 cm. Lungs: Clear in all lung berrios. Cardiovascular: Regular rhythm and rate without murmur or S3. Urine output is over 1 Liter. LABORATORY: White count 5310, hematocrit 24, platelet count 252,000. Sodium 136, potassium 4.2, chloride 98, BUN 59, creatinine 2.5, blood sugars 203, 127, 116. ASSESSMENT AND PLAN: 1. A 45-year-old with nonhealing diabetic foot ulcer, infection with chronic osteomyelitis. Scheduled for [id number] amputation on the right tomorrow, I think per Dr. Mendez. Continue present antibiotics. 2. Right foot pain, secondary to new calcaneal fracture on the top of osteomyelitis and cellulitis. 3. Diabetic foot peripheral neuropathy, diabetes mellitus type 2. Continue to follow pattern sugars, sliding scale. 4. Chronic kidney disease, stage IV. 5. Hypertension. 6. Morbid obesity. Body mass index is 58.7. 7. Suspected sleep apnea. Review of her laboratory, blood sugars appear well-controlled. Hemoglobin is 7, hematocrit 24, not sure if they want to give blood before the [id number] amputation. Review of orders: I do not see any changes. She is on Lantus 100 units subcutaneously b.i.d. She is on cefepime 1 g IV q.12 hours, Protonix 40 mg p.o. daily, Tenormin 25 mg p.o. daily, Lasix 40 mg b.i.d., Neurontin 600 mg at bedtime. She is on heparin 5000 units subcutaneous q.12 hours. Hydrocodone 7.5 mg q.6 hours. cc: Fred Ashby MD
[2016-12-01] MEDS: NEURONTIN PO SCH (20:25)
[2016-12-02 08:02] LABS: HEMATOCRIT 25.6 % (37.0-47.0); HEMOGLOBIN 7.7 g/dL (12.0-16.0); MCH 26.8 PG (27-31); MCHC 30.1 g/dL (33-37); MCV 89.2 FL (81-99); MPV 10.7 FL (7.4-10.4); RBC 2.87 XMIL (4.2-5.4)
[2016-12-02 08:20] LABS: CALCIUM 8.6 mg/dL (8.8-10.2); POTASSIUM 4.3 mmol/L (3.5-5.1)
--- NOTE | 2016-12-02 09:50 | PROGRESS NOTE ---
DATE: 12/02/2016 SUBJECTIVE: She feels well. No questions about surgery. She is ready to proceed with a right below-knee amputation. OBJECTIVE: Vital Signs: Temp 98.7, pulse 68, blood pressure 154/57, O2 saturation 98% on room air. General: She is alert, in no distress. Extremities: There is a dressing in place on the right foot. Minimal. No cellulitis extending up along the calf but persistent edema. There is a persistent odor from her foot. LABORATORY: White count 5, hematocrit 25, creatinine is 2.7, glucose 116. ASSESSMENT AND PLAN: This 45-year-old female with a chronic longstanding diabetic foot infection on the right. It has worsened despite all attempts to salvage her foot and she has progressed to need below-knee amputation on this side. Had long discussion with the patient and she is ready to proceed with this. We discussed possibility of wound healing complications which I do anticipate will be an issue postoperatively given the size of her calf. We will also discuss the role of rehab following this. She understands. Plan is to go to the operating room today for right below- knee amputation. cc: Haritha Mendez MD
[2016-12-02] MEDS: ZOSYN 3.375 GM/NS 3.375 GM/50 ML IVPB IV SCH ×2 (12:16→18:25)
[2016-12-02] MEDS: ZAROXOLYN PO SCH (12:16)
[2016-12-02] MEDS ORDERED: DIPRIVAN 1% ONE (15:24)
--- NOTE | 2016-12-02 15:36 | PROGRESS NOTE ---
DATE: 12/02/2016 SUBJECTIVE: A 45-year-old. She is waiting for surgery today, a right wbgew-gkd-ricu amputation. She is in good spirits. OBJECTIVE: Vital signs: Temperature 97.7 degrees, pulse 72, respirations 20, blood pressure 158/79. CVP less than 6 cm. Lungs: Clear in all lung berrios. Cardiovascular: Regular rhythm and rate, without murmur or S3. Abdomen: Soft. Skin: Warm and dry. LABORATORY STUDIES: Reviewed her labs. Ready for surgery. ASSESSMENT AND PLAN: 1. A 45-year-old with chronic longstanding diabetic foot infection on the right, worsened despite attempts to salvage her foot. Is planned for a right iqjwy-[id number]-rvcl amputation today. Continue present antibiotics. 2. Blood sugars look well-controlled. Continue sliding scale. 3. Peripheral neuropathy from diabetes. 4. Chronic kidney disease, stage 4. 5. Hypertension. Blood pressure controlled. 6. Morbid obesity. 7. Suspect obstructive sleep apnea. Looked at orders. No change. cc: Fred Ashby MD
[2016-12-02] MEDS: DILAUDID ONE ×4 (16:28→17:00)
[2016-12-02] MEDS ORDERED: QUELICIN (DOSE) ONE (16:51)
[2016-12-02] MEDS ORDERED: ZOFRAN ONE (16:51)
[2016-12-02] MEDS ORDERED: DECADRON ONE (16:51)
[2016-12-02] MEDS ORDERED: XYLOCAINE-MPF 2% ONE (16:51)
[2016-12-02] MEDS: HYZAAR 50/12.5 MG PO SCH (17:53)
[2016-12-02] MEDS: HEPARIN SUBQ SCH ×2 (17:53→21:13)
[2016-12-02] MEDS: LASIX PO SCH ×2 (17:54→21:14)
[2016-12-02] MEDS: TENORMIN PO SCH (17:54)
[2016-12-02] MEDS: PROTONIX PO SCH (17:54)
[2016-12-02] MEDS: LANTUS SUBQ SCH ×2 (17:54→21:13)
[2016-12-02] MEDS ORDERED: LR 1,000 ML ONE (18:15)
[2016-12-02] MEDS: NORCO-7.5 PO PRN (18:42)
--- NOTE | 2016-12-02 19:23 | OPERATIVE NOTE ---
PROCEDURE DATE: 12/02/2016 PREOPERATIVE DIAGNOSIS: Infected nonhealing diabetic wound of the right foot. POSTOP: Infected nonhealing diabetic wound of the right foot. PROCEDURE PERFORMED: Right below-knee amputation. COMPLICATION: None. ESTIMATED BLOOD LOSS: 300 mL. SPECIMENS: Right leg. ANESTHESIA: General. HIGH RIGGER: Dr. Almonte was present for the entirety the case to facilitate exposure given the large nature of the leg. INDICATIONS: A 45-year-old female with poorly controlled diabetes who has had a longstanding wound for greater than 6 months now that we have been managing as an outpatient. This wound has progressed requiring inpatient admission with serial debridements excisionally down the level of bone and she has failed salvage attempts of her foot and below-knee amputation is indicated. FINDINGS: There appear to be adequate perfusion of the distal leg and skin flap and muscle. There is calcification vessels noted. OPERATIVE NOTE: Risks, benefits, alternatives discussed patient. She consented to the procedure. She was seen in the preoperative area and surgery to be performed was confirmed. Surgical site was marked and confirmed with the patient. She was taken to operating room, placed supine position. General anesthesia was induced. All bony prominence were padded. She was receiving scheduled antibiotics and these were confirmed. Her right foot was prepped with Betadine and draped excluding the foot. After time-out was performed, approximately a hand's breadth below the tibial tuberosity we planned our incision with a posterior flap based incision. We carefully planned this to ensure adequate length of the flap. We made our incision, carried with electrocautery down to the level of muscle fascia. We divided the anterior tibialis. We identified the vascular pedicles and ligated these both with free ties and suture ligatures. After incising the entire flap we divided the fibula after encircling this with a bone cutter and then using Gigli saw we amputated the tibia. We beveled this at the top and there was good beveling here, no sharp edges. We then identified the tibioperoneal trunk and ligated this as well with suture ligature and the nerve and ligated this under tension, excised it to facilitate retraction the nerve to prevent postoperative neuroma. Then passed the leg off the table. We debulked the flap excising the soleus muscle and there was good reach here without any undue tension. We then closed the fascia with interrupted 0 Vicryl sutures after confirming hemostasis and irrigating the wound and then closed the skin with celeste. Counts were correct x2. She tolerated procedure well. She was awoken, transferred to PACU in good condition. I spoke with the family. cc: Haritha Mendez MD
[2016-12-02] MEDS: NEURONTIN PO SCH (21:14)
[2016-12-02] MEDS: PERIDEX MT SCH (21:21)
[2016-12-03] MEDS: NORCO-7.5 PO PRN ×3 (00:24→12:15)
[2016-12-03] MEDS: ZOSYN 3.375 GM/NS 3.375 GM/50 ML IVPB IV SCH ×3 (00:28→18:09)
[2016-12-03 07:33] LABS: MANUAL DIFF NEEDED? NO
[2016-12-03 07:51] LABS: BASO% 0.5 % (0.0-0.8); EOS# 0.01 X1000 (0.0-0.7); EOS% 0.2 % (0.0-10.0); HEMATOCRIT 25.9 % (37.0-47.0); HEMOGLOBIN 7.8 g/dL (12.0-16.0); IMM GRAN# 0.02 X1000 (0.0-0.04); IMM GRAN% 0.3 % (0.0-0.5); LYMPH# 0.59 X1000 (1.2-3.4); LYMPH% 9.7 % (20.5-51.1); MCH 26.5 PG (27-31); MCHC 30.1 g/dL (33-37); MCV 88.1 FL (81-99); MONO# 0.37 X1000 (0.11-0.59); MONO% 6.1 % (1.7-9.3); MPV 10.8 FL (7.4-10.4); NEUT% 83.2 % (42.2-75.2); PLT 248 X1000 (130-400); RBC 2.94 XMIL (4.2-5.4)
[2016-12-03 07:54] LABS: CALCIUM 8.4 mg/dL (8.8-10.2)
--- NOTE | 2016-12-03 08:29 | PROGRESS NOTE ---
DATE: 12/02/2016 PRESENT ILLNESS: The patient has a severe right foot infection which includes osteomyelitis of the calcaneus. She has been bleeding from the infection. MEDICATIONS: The patient is on cefepime. PHYSICAL EXAMINATION: Vital Signs: Temperature is 98.7 degrees, pulse 68, respirations 20, blood pressure 154/57. General: This is an obese, young female. She is in no acute distress. Lungs: Clear to auscultation. Cardiovascular: Regular heart rate. Abdomen: Soft and nontender. Extremities: Patient has a PICC in the right arm. The site is not erythematous or swollen. The patient has a dressing on her right foot. The foot has a foul odor to it. The dressing is intact. LAB AND X-RAY: CBC today shows a white count of 5130, hemoglobin 7.7 and platelet count 253,000. Creatinine is 2.7. GFR is 19. A culture taken from the patient's foot is growing Enterococcus. ASSESSMENT AND PLAN: Patient has cellulitis and osteomyelitis of the right foot with involvement of the calcaneus. My plan is to discontinue cefepime and start the patient on Zosyn because of the recent culture which showed Enterococcus. Patient is scheduled today to have a right below- the-knee amputation to be performed by Dr. Field. COMORBIDITIES: 1. Diabetes mellitus. 2. Obesity. 3. Peripheral neuropathy. 4. End stage renal disease. -3 cc: Pola English MD
--- NOTE | 2016-12-03 08:34 | PROGRESS NOTE ---
DATE: 11/29/2016 PRESENT ILLNESS: The patient has osteomyelitis of the right calcaneus. She has been bleeding very briskly from the right heel. MEDICATIONS: The patient has been receiving cefepime at home. The dose was decreased because of the patient's end-stage renal disease. PHYSICAL EXAMINATION: Vital Signs: Temperature is 98.8, pulse 82, respirations 20, blood pressure 148/55. Generally: This is an obese, young female, who is in no acute distress. Lungs: Clear to auscultation. Cardiovascular: Regular heart rate. Abdomen: Soft and nontender. Extremities: Patient has a PICC in the right arm. In the right leg, the right foot has a large dressing around it. The dressing is intact. LAB AND X-RAY: The x-ray of the right foot shows cellulitis and soft tissue gas and calcaneus osteomyelitis. The patient's prior culture from the heel grew Pseudomonas and Providencia. CBC today shows a white count of 7100, hemoglobin 6.6 and platelet count 232,000. Creatinine is 2.7. GFR is 19. ASSESSMENT AND PLAN: Patient has cellulitis and osteomyelitis of the right heel. For now, we are going to be treating the patient with cefepime in a reduced dose as mentioned above. It is my understanding that at the first of the week, most likely on Friday, the patient will be having a right giaux-pfn-nytu amputation performed. COMORBIDITIES: Include diabetes mellitus, obesity, peripheral neuropathy and end-stage renal disease. -0 cc: Pola English MD
[2016-12-03] MEDS: HEPARIN SUBQ SCH ×2 (09:36→21:21)
[2016-12-03] MEDS: LANTUS SUBQ SCH ×2 (09:37→21:21)
[2016-12-03] MEDS: HYZAAR 50/12.5 MG PO SCH (09:37)
[2016-12-03] MEDS: TENORMIN PO SCH (09:38)
[2016-12-03] MEDS: LASIX PO SCH ×2 (09:38→21:21)
[2016-12-03] MEDS: PROTONIX PO SCH (09:38)
[2016-12-03] MEDS: PERIDEX MT SCH ×2 (09:38→21:21)
[2016-12-03] MEDS: ZAROXOLYN PO SCH (09:39)
--- NOTE | 2016-12-03 11:19 | PROGRESS NOTE ---
DATE: 12/03/2016 SUBJECTIVE: Feels okay. Some neuropathic pain. Otherwise, no fevers, no tachycardia. Blood pressure has been good. LABORATORY DATA: Hematocrit is 25. Creatinine is 2.6, glucose 202. PHYSICAL EXAMINATION: General: She is alert, in no acute distress. Extremities: Right below- knee amputation. Dressing is clean, dry, and intact. ASSESSMENT AND PLAN: This is a 45-year-old female with a chronic infected diabetic foot wound, status post right below-knee amputation. She is doing well. Work on pain control, mobility, physical therapy today. I suspect she is going to need rehab so will engage our social work assistant and I will order her knee immobilizer. cc: Haritha Mendez MD
--- NOTE | 2016-12-03 12:55 | PROGRESS NOTE ---
DATE: 12/03/2016 SUBJECTIVE: Ms. Quiros is feeling much better today. She had some visitors in the room. She is eating well, breathing comfortably. OBJECTIVE: Vital signs: Temperature 97.7 degrees, pulse 64, respirations 18, blood pressure 161/60. HEENT: Pupils are equal, round. Lungs: Clear in all lung berrios. Cardiovascular: Regular rhythm and rate, without murmur or S3. Abdomen: Soft. URINE OUTPUT: 2100 mL. LABORATORY: White count 6080, hematocrit 25, platelet count of 248,000. Sodium 137, potassium 5.0, chloride 97, BUN 61, creatinine 2.6, and blood sugars 232, 267, and 202. ASSESSMENT AND PLAN: 1. A 45-year-old with chronic infected diabetic foot, wound status post right abiev-hut-qnok amputation. Doing well. Continue present wound care. Continue present antibiotics. 2. Diabetes mellitus, type 2. Blood sugars well controlled. 3. Peripheral neuropathy from diabetes. 4. Chronic kidney disease, stage 4. 5. Hypertension. Blood pressure under good control. 6. Morbid obesity. 7. History of sleep apnea. ORDERS REVIEWED: I do not see any change at this point. She is on heparin 5000 subcutaneously q.12 hours. We will follow her electrolytes and encourage incentive spirometry. cc: Fred Ashby MD
[2016-12-03] MEDS: NORCO-10 PO PRN ×2 (18:08→22:35)
[2016-12-03] MEDS: NEURONTIN PO SCH (21:21)
[2016-12-04] MEDS: ZOSYN 3.375 GM/NS 3.375 GM/50 ML IVPB IV SCH ×4 (01:28→17:36)
[2016-12-04] MEDS: NORCO-10 PO PRN ×6 (02:28→23:19)
[2016-12-04] MEDS: PERIDEX MT SCH ×2 (08:13→20:40)
[2016-12-04] MEDS: PROTONIX PO SCH (08:13)
[2016-12-04] MEDS: TENORMIN PO SCH (08:13)
[2016-12-04] MEDS: ZAROXOLYN PO SCH (08:13)
[2016-12-04] MEDS: LASIX PO SCH ×2 (08:13→20:41)
[2016-12-04] MEDS: LANTUS SUBQ SCH ×2 (08:14→20:40)
[2016-12-04] MEDS: HEPARIN SUBQ SCH ×2 (08:14→20:41)
[2016-12-04] MEDS: HYZAAR 50/12.5 MG PO SCH (08:14)
--- NOTE | 2016-12-04 10:39 | PROGRESS NOTE ---
DATE: 12/04/2016 PRESENT ILLNESS: The patient is postop R BKA for osteomyelitis of the calcaneus. She had been bleeding from the wound. MEDICATIONS: The patient 2 days ago was switched to Zosyn because of the finding of Enterococcus in a culture taken from her foot. This is day 2 of treatment with Zosyn. PHYSICAL EXAMINATION: Vital Signs: Temperature is 98.3, pulse 78, respirations 14, blood pressure 151/63. General: This is an obese, young female. She is in no acute distress. Lungs: Clear to auscultation. Cardiovascular: Heart rate is regular. Abdomen: Soft , nontender. Extremities: Patient has a right thxta-kfw-hzux amputation. Her leg is enclosed in a hard cast- like structure. ASSESSMENT AND PLAN: The patient is status post amputation. I plan to continue the current antibiotics for a few days until we are sure that the patient's wound is healing well. COMORBIDITIES: Include diabetes mellitus, obesity, peripheral neuropathy, and end-stage renal disease. cc: Pola English MD MTDD
--- NOTE | 2016-12-04 12:51 | PROGRESS NOTE ---
DATE: 12/04/2016 SUBJECTIVE: Ms. Quiros is feeling good. She has had some pain. More pain yesterday evening than this morning. Breathing comfortably. OBJECTIVE: Vital Signs: Remains afebrile. Temperature 97.7, pulse 76, respirations 14, blood pressure 131/47. Eyes: Pupils are equal, round. Lungs: Are clear in all lung berrios. Cardiovascular: Exam regular rhythm and rate without murmur or S3. Abdomen: Soft. Skin: Warm and dry. : Urine output 2300 mL. LAB: Reviewed from yesterday. Hematocrit 25, blood sugars 251, 282, 176. ASSESSMENT AND PLAN: 1. A 45-year-old with chronic infected diabetic foot wound, status post sxkjz-xrn-lbjw amputation. Doing very well. 2. Diabetes mellitus type 2. Sugars well controlled. 3. Peripheral neuropathy from diabetes. 4. Chronic kidney disease stage 4. Renal function stable. 5. Hypertension. 6. Morbid obesity. 7. History of sleep apnea. Review of her orders. I do not see any changes at this point. I will work on her pain control, mobility and physical therapy. cc: Fred Ashby MD
--- NOTE | 2016-12-04 15:53 | PROGRESS NOTE ---
DATE: 12/04/2016 SUBJECTIVE: Feels well this morning. Occasional neuropathic pain but it is improving. No fevers. No tachycardia. OBJECTIVE: Blood pressures have been fine for her. No new CBC this morning. Blood sugar is 116. ASSESSMENT/PLAN: A 45-year-old female, status post right below-knee amputation for infected diabetic foot wound. She is doing well overall. Plan to remove her dressing tomorrow. She is going to need rehab. That is what our discussions have been to help her given her obesity and her recent BKA. She has in her immobilizer. She has no systemic signs of infection. Dr. English is following. cc: Haritha Mendez MD
[2016-12-04] MEDS: NEURONTIN PO SCH (20:41)
[2016-12-05] MEDS: ZOSYN 3.375 GM/NS 3.375 GM/50 ML IVPB IV SCH ×3 (01:43→16:51)
[2016-12-05] MEDS: NORCO-10 PO PRN ×6 (03:19→22:28)
[2016-12-05] MEDS ORDERED: INSULIN PEN NEEDLES ONE (06:47)
[2016-12-05] MEDS: PERIDEX MT SCH ×2 (10:22→22:27)
[2016-12-05] MEDS: LANTUS SUBQ SCH ×2 (10:25→22:27)
[2016-12-05] MEDS: HEPARIN SUBQ SCH ×2 (10:27→22:27)
[2016-12-05] MEDS: ZAROXOLYN PO SCH (10:30)
[2016-12-05] MEDS: LASIX PO SCH ×2 (10:30→22:26)
[2016-12-05] MEDS: TENORMIN PO SCH (10:30)
[2016-12-05] MEDS: HYZAAR 50/12.5 MG PO SCH (10:30)
[2016-12-05] MEDS: PROTONIX PO SCH (10:30)
--- NOTE | 2016-12-05 12:17 | PROGRESS NOTE ---
DATE: 12/05/2016 Ms. Quiros is sitting up on the edge of bed. She is feeling much better. Breathing comfortably. Remained afebrile. Eating well but she may need something to help her bowels. Temp 98.9 degrees, pulse 65, respirations 14, blood pressure 141/63. Lungs: Are clear in all lung berrios. Cardiovascular: Regular rhythm and rate without murmur or S3. Abdomen: Soft. Skin: Is warm and dry. Urine output 2700 mL. LAB: From yesterday reviewed. Hematocrit 25, hemoglobin 7.8, and that is stable. Blood sugars 188, 114, 178. ASSESSMENT AND PLAN: 1. A 45-year-old, status post below-knee amputation for infected diabetic foot wound doing very well. Continue dressing changes. I am trying to set her up for rehab which she I think agrees to. Talked to her about that today. 2. Constipation. See if we can give her something to help her with bowels. I will put her on some Colace and see if this helps. Also maybe give her dose of note of milk magnesia if it is necessary. 3. Diabetes mellitus. Sugars appear well controlled. 4. Obesity obstructive apnea. Aware. 5. Chronic kidney disease stage 4. 6. Hypertension. 7. Peripheral neuropathy. Will add Colace to her regimen. Note her blood counts are stable, hematocrit 25. We will watch. cc: Fred Ashby MD
[2016-12-05] MEDS: COLACE PO SCH ×2 (12:54→22:27)
[2016-12-05] MEDS: ICAR-C PLUS PO SCH ×2 (12:54→22:26)
--- NOTE | 2016-12-05 15:31 | Diag Imaging Result Doc PS360 ---
CHEST-PORTABLE - 12/05/2016 INDICATION: rehab TECHNIQUE: COMPARISON: 11/09/2016 FINDINGS: There is stable right PICC line with the catheter tip at the lower SVC. Stable moderate cardiomegaly. No infiltrates or overt edema. No pneumothorax or pleural effusion. IMPRESSION: Cardiomegaly. No change from prior. Electronically signed by Emiliano Brownlee 12/05/2016 3:29 PM
--- NOTE | 2016-12-05 17:26 | PROGRESS NOTE ---
DATE: 12/05/2016 PRESENT ILLNESS: The patient is postop right frxae-igo-avnk amputation for osteomyelitis of the right calcaneus. MEDICATIONS: This is day 3 of treatment with Zosyn. PHYSICAL EXAMINATION: Vital Signs: Temperature is 97.6 degrees, pulse 62, respirations 20, blood pressure 135/53. General: This is an obese, young female. She is in no acute distress. Lungs: Clear to auscultation. Cardiovascular: Regular heart rate. Abdomen: Soft and nontender. Extremities: Patient has a right jxkfd-crm-gyjq amputation. The patient's dressing is intact. The nurse who changed her dressing this morning told me that the incision is intact. It is not erythematous. ASSESSMENT AND PLAN: Patient is status post amputation. I plan to continue Zosyn for a few more days. The patient's comorbidities include diabetes mellitus, obesity, peripheral neuropathy, and end-stage renal disease. cc: Pola English MD
--- NOTE | 2016-12-05 20:11 | PROGRESS NOTE ---
DATE: 12/05/2016 SUBJECTIVE: Patient was seen on rounds this morning and was feeling well. Occasional neuropathic pain but this has improved. OBJECTIVE: No fevers, temperature is 98.9 degrees, pulse 65, blood pressure 141 /63. In general, she is alert, in no acute distress. Her right below-knee amputation site is clean, dry, and intact. There is no drainage, no cellulitis. Flap is viable. Blood sugar is 186. ASSESSMENT AND PLAN: This is a 45-year-old female status post right below-knee amputation for chronic diabetic foot wound that has failed other attempts at management. Dr. English is following patient for a couple of more days of antibiotics. She is in her immobilizer. We will continue dressing changes and physical therapy. I think she will need rehabilitation and we will discuss this matter with Social Work. cc: Haritha Mendez MD [facility]
[2016-12-05] MEDS: NEURONTIN PO SCH (22:26)
[2016-12-06] MEDS: ZOSYN 3.375 GM/NS 3.375 GM/50 ML IVPB IV SCH ×4 (02:12→17:23)
[2016-12-06] MEDS: NORCO-10 PO PRN ×5 (02:12→20:45)
[2016-12-06 06:11] LABS: MANUAL DIFF NEEDED? NO
[2016-12-06 06:21] LABS: BASO% 0.4 % (0.0-0.8); EOS# 0.13 X1000 (0.0-0.7); EOS% 2.5 % (0.0-10.0); HEMATOCRIT 27.8 % (37.0-47.0); HEMOGLOBIN 8.1 g/dL (12.0-16.0); IMM GRAN# 0.03 X1000 (0.0-0.04); IMM GRAN% 0.6 % (0.0-0.5); LYMPH% 19.2 % (20.5-51.1); MCH 26.1 PG (27-31); MCHC 29.1 g/dL (33-37); MCV 89.7 FL (81-99); MONO# 0.31 X1000 (0.11-0.59); MONO% 5.9 % (1.7-9.3); MPV 10.2 FL (7.4-10.4); NEUT% 71.4 % (42.2-75.2); PLT 289 X1000 (130-400)
[2016-12-06 06:43] LABS: CALCIUM 9.1 mg/dL (8.8-10.2); POTASSIUM 4.1 mmol/L (3.5-5.1)
[2016-12-06] MEDS: LANTUS SUBQ SCH ×2 (09:11→21:38)
[2016-12-06] MEDS: PROTONIX PO SCH (09:15)
[2016-12-06] MEDS: HEPARIN SUBQ SCH ×2 (09:15→21:38)
[2016-12-06] MEDS: PERIDEX MT SCH ×2 (09:15→21:37)
[2016-12-06] MEDS: COLACE PO SCH ×2 (09:16→21:38)
[2016-12-06] MEDS: ZAROXOLYN PO SCH (09:17)
[2016-12-06] MEDS: TENORMIN PO SCH (09:17)
[2016-12-06] MEDS: ICAR-C PLUS PO SCH ×2 (09:17→21:37)
[2016-12-06] MEDS: HYZAAR 50/12.5 MG PO SCH (09:17)
--- NOTE | 2016-12-06 09:43 | PROGRESS NOTE ---
DATE: 12/06/2016 SUBJECTIVE: Ms. Quiros is feeling much better. No complaints, breathing comfortably. OBJECTIVE: Vital Signs: Remains afebrile with temp 97.4 degrees, pulse 72, respirations 16, blood pressure 149/63. Lungs: Clear in all lung berrios. Cardiovascular exam: Regular rhythm and rate without murmur or S3. : Urine output was 1952 mL. Blood sugar is 114,159 and 105. ASSESSMENT AND PLAN: 1. Status post right ibeqq-ikb-kimr amputation for chronic diabetic foot wound, doing very well. 2. Diabetes mellitus type 2. Following blood sugars. 3. This is the fourth day of the Zosyn. DISPOSITION: Hope to get her to rehab first of the week. Note chest x-ray from yesterday: Cardiomegaly. No change from prior. cc: Fred Ashby MD
[2016-12-06] MEDS ORDERED: INSULIN PEN NEEDLES ONE (14:47)
--- NOTE | 2016-12-06 17:07 | PROGRESS NOTE ---
DATE: 12/06/2016 SUBJECTIVE: She feels well. Neuropathic pains are improved. No other events overnight. She really seems to feel the best she has felt in a while. OBJECTIVE: No fevers. No tachycardia. Blood pressure has been okay for her. She is also requiring some oxygen. White count 5, hematocrit 27. Creatinine is up to 3 from her baseline of 2.6 to 2.7. Glucose 151. Her right below-knee amputation dressing is clean, dry, and intact. She has got a knee immobilizer in place. ASSESSMENT AND PLAN: A 45-year-old female, status post right below-knee amputation. Her creatinine has been gradually rising. I have held her Lasix. She does not have much in the way of peripheral edema. We may can resume this in the next day or 2. Otherwise, appreciate the hospitalist service. We will continue the knee immobilizer, order physical therapy for her, and plan for rehab placement on Friday. cc: Haritha Mendez MD
[2016-12-06] MEDS: NEURONTIN PO SCH (21:37)
[2016-12-07] MEDS: ZOSYN 3.375 GM/NS 3.375 GM/50 ML IVPB IV SCH ×3 (02:17→08:23)
[2016-12-07] MEDS: NORCO-10 PO PRN ×5 (04:54→22:42)
[2016-12-07] MEDS ORDERED: SODIUM CHLORIDE 0.9% 10 ML ONE (07:24)
[2016-12-07] MEDS: ICAR-C PLUS PO SCH ×2 (08:06→22:44)
[2016-12-07] MEDS: ZAROXOLYN PO SCH (08:07)
[2016-12-07] MEDS: TENORMIN PO SCH (08:07)
[2016-12-07] MEDS: HYZAAR 50/12.5 MG PO SCH (08:07)
[2016-12-07] MEDS: PROTONIX PO SCH (08:07)
[2016-12-07] MEDS: PERIDEX MT SCH ×2 (08:08→22:45)
[2016-12-07] MEDS: HEPARIN SUBQ SCH ×2 (08:08→22:44)
[2016-12-07] MEDS: LANTUS SUBQ SCH ×2 (08:08→22:45)
[2016-12-07] MEDS: COLACE PO SCH ×2 (08:22→22:44)
--- NOTE | 2016-12-07 09:48 | PROGRESS NOTE ---
DATE: 12/17/2016 PRESENT ILLNESS: This is postop day 5 of a right wlhig-kni-gmph amputation due to osteomyelitis of the calcaneus. MEDICATIONS: This is day 5 of treatment with Zosyn following surgery. LAB AND X-RAY: Yesterday's lab showed CBC with WBC 5.22, hgb 8.1, [id number]. Creatinine is 3. PHYSICAL EXAMINATION: Vital Signs: Temperature is 97.2 degrees, pulse 61, respirations 20, blood pressure 151/50. Generally, this is an obese, but otherwise, healthy-appearing young female. She is in no acute distress. She said that her phantom pain which had been fairly severe last week is almost completely gone. When the patient's dressing was changed earlier today, the incision was intact and it was not erythematous. ASSESSMENT AND PLAN: The patient is status post amputation. Discussed with Dr. Ashby. Since creatinine is rising and incision is intact will D/C Zosyn in case it is causing the increase in creatinine. Comorbidities include diabetes mellitus, obesity, peripheral neuropathy, and end -stage renal disease. Available prn. Signing off for now. cc: Pola English MD MTDD
--- NOTE | 2016-12-07 09:57 | PROGRESS NOTE ---
DATE: 12/07/2016 SUBJECTIVE: Ms. Quiros is sitting up in bed. She is still requiring pain medicine but still feels that she is doing much better. She is eating well. She still is having loose stool and, I told her we would try some Questran to see if that will help. OBJECTIVE: Temperature 97.2 degrees, pulse 60, respirations 20, blood pressure 151/50. Lungs are clear in all lung berrios. Cardiovascular: Regular rhythm and rate without murmur or S3. Abdomen is soft. Skin is warm and dry. LABORATORY DATA: Lab work from 12/06/2016 reviewed. Hematocrit 27, hemoglobin 8.1. Blood sugar is 151, 183, and 126. ASSESSMENT AND PLAN: 1. A 45-year-old, status post right mlbqv-tpg-qsid amputation. Creatinine has been slowly rising, so we will keep an eye on that and check a creatinine again in the morning. Continue IV fluids. I am going to give her normal saline and will run it at 85 mL an hour. 2. Diabetic foot ulcer. She has been battling this since May. I think we can stop the antibiotic of Zosyn. Dr. English is following. We will discuss with him. 3. Diabetes mellitus, type 2. Blood sugar is under control. 4. Loose stools. We will send stool for Clostridium difficile. We will give some Questran. Continue physical therapy. The goal was trying to get her to rehab. cc: Fred Ashby MD
--- NOTE | 2016-12-07 10:04 | PROGRESS NOTE ---
DATE: 12/07/2016 ADDENDUM REPORT: To progress note. I discussed the patient with Dr. Ashby and Dr. Ashby feels that the creatinine may have increased due to the patient being on Zosyn causing some type of nephropathy. I think this is a reasonable possibility and therefore I have discontinued Zosyn. In addition, the patient does not have any evidence of infection at the operative site of amputation. cc: Pola English MD
[2016-12-07 10:47] LABS: CALCIUM 9.2 mg/dL (8.8-10.2); POTASSIUM 4.1 mmol/L (3.5-5.1)
[2016-12-07] MEDS: QUESTRAN LIGHT PO SCH (12:17)
--- NOTE | 2016-12-07 17:02 | PROGRESS NOTE ---
DATE: 12/07/2016 ADDENDUM: The patient's stool for Clostridium difficile toxin came back positive. The patient has an allergy to vancomycin manifested by nausea and vomiting. Because of this, I have placed the patient on Flagyl 500 mg p.o. every 8 hours. cc: Pola English MD
[2016-12-07] MEDS: FLAGYL PO SCH (22:44)
[2016-12-07] MEDS: NEURONTIN PO SCH (22:44)
[2016-12-08] MEDS: NORCO-10 PO PRN ×5 (06:11→22:43)
[2016-12-08] MEDS: FLAGYL PO SCH ×3 (06:41→22:43)
--- NOTE | 2016-12-08 06:53 | PROGRESS NOTE ---
DATE: 12/08/2016 SUBJECTIVE: Patient doing okay. No major issues. OBJECTIVE: Vital Signs: Patient is currently afebrile. Her vital signs are stable. General Examination: No acute distress. Cardiovascular: Regular rate and rhythm. Lungs: Grossly clear. Abdomen: Obese but nontender. Extremities: Right lower extremity amputation site dressing removed and incisions healing well. Zoë in place. No signs of erythema. ASSESSMENT AND PLAN: A 45-year-old, female, status post right aofly-yso-rkdo amputation. At this point, her wound is doing well. Would continue to monitor for now. Her creatinine yesterday was 2.8 which was down from 3. I would continue to monitor and defer further management to the hospitalist service. cc: Rick Donahue MD
[2016-12-08] MEDS: LANTUS SUBQ SCH ×2 (09:55→22:42)
[2016-12-08] MEDS: PROTONIX PO SCH (09:56)
[2016-12-08] MEDS: ICAR-C PLUS PO SCH ×2 (09:56→22:43)
[2016-12-08] MEDS: ZAROXOLYN PO SCH (09:56)
[2016-12-08] MEDS: HEPARIN SUBQ SCH ×2 (09:56→22:43)
[2016-12-08] MEDS: TENORMIN PO SCH (09:56)
[2016-12-08] MEDS: HYZAAR 50/12.5 MG PO SCH (09:56)
[2016-12-08] MEDS: PERIDEX MT SCH ×2 (09:57→22:48)
[2016-12-08] MEDS: QUESTRAN LIGHT PO SCH (09:57)
[2016-12-08] MEDS: COLACE PO SCH ×2 (10:13→22:44)
[2016-12-08 10:40] LABS: CALCIUM 9.2 mg/dL (8.8-10.2); MAGNESIUM 1.8 mg/dL (1.5-2.7); POTASSIUM 4.1 mmol/L (3.5-5.1)
--- NOTE | 2016-12-08 14:12 | PROGRESS NOTE ---
DATE: 12/08/2016 SUBJECTIVE: Ms. Quiros has still got loose stools. She is feeling better otherwise. Her stool study came back positive for C. difficile toxin. Wound culture grew out enterococcus faecalis group D which is sensitive to everything. EXAM: Vital signs: Today temperature 97.5 degrees, pulse 62, respirations 16, blood pressure 165/58. Eyes: Pupils equal, round. Lungs: Clear in all lung berrios. Cardiovascular: Regular rhythm, rate without murmur, S3. Abdomen: Soft. Skin: Warm and dry. Urine output 2300 mL. LAB: Blood sugar 126, 211, 153. ASSESSMENT AND PLAN: 1. Status post right kgdgb-vch-vuwj amputation diabetic foot wound doing well. 2. Watching her serum creatinine it did come down to 2.4 from 2.8 yesterday have to give her a little more fluid. 3. Clostridium difficile toxin positive with loose stools. Put her on some Flagyl. We are looking for rehab potential, note the blood sugars are well controlled. cc: Fred Ashby MD
[2016-12-08] MEDS: NEURONTIN PO SCH (22:43)
[2016-12-09] MEDS: FLAGYL PO SCH ×5 (05:57→22:51)
[2016-12-09] MEDS: NORCO-10 PO PRN ×4 (05:57→21:44)
[2016-12-09] MEDS: ICAR-C PLUS PO SCH ×2 (09:06→21:38)
[2016-12-09] MEDS: ZAROXOLYN PO SCH (09:06)
[2016-12-09] MEDS: PERIDEX MT SCH ×2 (09:06→21:37)
[2016-12-09] MEDS: HYZAAR 50/12.5 MG PO SCH (09:06)
[2016-12-09] MEDS: PROTONIX PO SCH (09:06)
[2016-12-09] MEDS: HEPARIN SUBQ SCH ×2 (09:07→21:38)
[2016-12-09] MEDS: COLACE PO SCH ×2 (09:07→21:40)
[2016-12-09] MEDS: LANTUS SUBQ SCH ×2 (09:07→21:39)
[2016-12-09] MEDS: TENORMIN PO SCH (09:07)
--- NOTE | 2016-12-09 09:26 | PROGRESS NOTE ---
DATE: 12/09/2016 PRESENT ILLNESS: The patient is status post right bvzrh-tol-wvhm amputation due to osteomyelitis of the calcaneus. Yesterday, her stool came back positive for Clostridium difficile toxin. The patient also is allergic to vancomycin when given IV. MEDICATIONS: The patient yesterday was starting on Flagyl because we felt that even though the vancomycin given p.o. is poorly absorbed, there still may be some absorbed and then the patient may have an even worse reaction to vancomycin than the one she had earlier. PHYSICAL EXAMINATION: Vital Signs: Temperature is 98.6 degrees, pulse 93, respirations 12, blood pressure 149/73. General: This is an obese, young female who is in no acute distress. Lungs: Clear to auscultation. Cardiovascular: Regular heart rate. Abdomen: Soft and nontender. Extremities: Patient's right leg dressing is intact. The leg is in an immobilizer. LAB AND X-RAY STUDIES: The patient's creatinine yesterday was 2.4 with a GFR of 22. On the 06 of December, the patient's CBC showed a white count of 5220, hemoglobin 8.1, and platelet count 289,000. ASSESSMENT AND PLAN: The patient is status post right yyvnm-wzp-qufp amputation. The operative site does not appear to be infected. She now is having diarrhea due to Clostridium difficile. She is on Flagyl for this. I plan to continue it for 14 days. COMORBIDITIES: She is obese which can make wounds more difficult to heal. She also has diabetes mellitus, peripheral neuropathy, and end-stage renal disease. cc: Pola English MD
--- NOTE | 2016-12-09 10:26 | PROGRESS NOTE ---
DATE: 12/09/2016 SUBJECTIVE: Ms. Quiros's stools are still loose. The Questran made her stomach feel bad, made her sick, in her words, so we will quit that. She is on Flagyl. The pain is well controlled. Feeling better overall. OBJECTIVE: Vital signs: Temp 98.4 degrees, pulse 62, respirations 16, blood pressure 154/56. Lungs: Clear in all lung berrios. Cardiovascular: Regular rhythm and rate without murmur or S3. Abdomen: Soft. Skin: Warm and dry. LAB: Blood sugars 153, 219, 129. ASSESSMENT AND PLAN: 1. Status post right kimxx-kcx-cpdz amputation. Healing well. 2. Clostridium difficile colitis. On the Flagyl. 3. Diabetes mellitus type 2. Sugar is under good control. Looking for rehab placement. I will stop the Questran. cc: Fred Ashby MD
--- NOTE | 2016-12-09 14:15 | PROGRESS NOTE ---
DATE: 12/09/2016 SUBJECTIVE: No events. Feels much better. Strength is improving. No neuropathic pain. No fevers. OBJECTIVE: Pulse 62, blood pressure 154/56. Her right below-knee amputation site is clean, dry, intact. There is no cellulitis or drainage. Creatinine was down to 2.4 yesterday, glucose 129. ASSESSMENT/PLAN: 45-year-old female, status post right below-knee amputation doing very well. Making plans for discharge to rehabilitation soon. She will need to continue knee immobilizer but can otherwise work with physical therapy as tolerated. See me back within 2 weeks for staple removal and wound evaluation. She will need to wear the knee immobilizer at all times to keep the leg straight. cc: Haritha Mendez MD
[2016-12-09] MEDS: NEURONTIN PO SCH (21:37)
[2016-12-10] MEDS: FLAGYL PO SCH ×3 (06:03→21:53)
[2016-12-10] MEDS: NORCO-10 PO PRN ×4 (06:07→22:23)
--- NOTE | 2016-12-10 08:35 | PROGRESS NOTE ---
DATE: 12/10/2016 PRESENT ILLNESS: The patient's current problem she is dealing with his Clostridium difficile diarrhea. She has been on Flagyl now for 2 days and she reports that she is passing much less stool and it is beginning to take on some form. MEDICATIONS: The patient is receiving Flagyl. PHYSICAL EXAMINATION: Vital Signs: Temperature is 98.2, pulse 69, respirations 18, blood pressure 124/57. General: This is an obese, young female. She is in no acute distress. Lungs: Clear to auscultation. Cardiovascular: Regular heart rate. Extremities: I removed the dressing from the patient's right leg. The incision is intact. It is not erythematous and it is not draining. LAB AND X-RAY: There is no new lab or x-ray study. ASSESSMENT AND PLAN: The patient has Clostridium difficile diarrhea. She has been placed on Flagyl for it. I plan to continue it for a total of 14 days. COMORBIDITIES: Include she is obese which makes wounds more difficult to heal. The patient has diabetes mellitus, peripheral neuropathy and end-stage renal disease. cc: Pola English MD
[2016-12-10] MEDS: ZAROXOLYN PO SCH (09:32)
[2016-12-10] MEDS: PERIDEX MT SCH ×2 (09:32→21:52)
[2016-12-10] MEDS: TENORMIN PO SCH (09:32)
[2016-12-10] MEDS: PROTONIX PO SCH (09:32)
[2016-12-10] MEDS: ICAR-C PLUS PO SCH ×2 (09:32→21:52)
[2016-12-10] MEDS: HYZAAR 50/12.5 MG PO SCH (09:32)
[2016-12-10] MEDS: HEPARIN SUBQ SCH ×2 (09:32→21:53)
[2016-12-10] MEDS: COLACE PO SCH ×2 (09:33→21:52)
[2016-12-10] MEDS: LANTUS SUBQ SCH ×2 (09:33→21:52)
--- NOTE | 2016-12-10 12:41 | PROGRESS NOTE ---
DATE: 12/10/2016 SUBJECTIVE: Ms. Quiros is feeling better. She says her bowels are starting to form a little bit. OBJECTIVE: Vital Signs: She remains afebrile. Temperature 98.2 degrees, pulse 69, respirations 18, blood pressure 124/57. HEENT: Pupils are equal, round. Lungs: Clear in all lung berrios. Cardiovascular: Regular rhythm and rate, without murmur or S3. URINE OUTPUT: 1500 mL. LABORATORY: Lab reviewed from 12/06/2016 all looked good. Blood sugars have been doing very well: 187, 145, 128, and there was an 85. ASSESSMENT AND PLAN: 1. Her problem is that she has Clostridium difficile diarrhea, so I have had her on Flagyl. Stools are starting to form. I think she will be ready go to rehabilitation tomorrow. 2. Status post right hgbnu-ysg-brac amputation. Recovering well. She has had a chronic diabetic foot infection. It looks much better and so we will try to get her set up to go to rehabilitation tomorrow. cc: Fred Ashby MD
--- NOTE | 2016-12-10 12:43 | DISCHARGE SUMMARY ---
ADMISSION DATE: 11/29/2016 DISCHARGE DATE: 12/11/2016 HOSPITAL COURSE: She is a 45-year-old, who had a history of morbid obesity along with multiple other comorbidities, also with a right foot diabetic ulcer which had been followed by Dr. Mendez both inpatient and outpatient. She actually had excisional debridement of the right calcaneal wound to the level of the bone on 11/27/[address] Mendez. Unfortunately, Therapies have failed, and she came in and got the right [id number]-olq-[id number] amputation. Postop, she did real well. She did develop some diarrhea, and we had her on some broad-spectrum antibiotics and the stool was Clostridium difficile positive toxin, so I treated her with Flagyl. She showed improvement and felt she is ready go back to rehab on 12/11/2016. PAST MEDICAL HISTORY: 1. Chronic right diabetic foot ulcer. Osteomyelitis. 2. Morbid obesity. 3. Pickwickian syndrome. 4. Congestive heart failure, diastolic. 5. Severe pulmonary hypertension. 6. Diabetes mellitus, type 2. 7. Anemia of chronic disease. 8. Obstructive sleep apnea. 9. Gastroesophageal reflux disease. 10. Peripheral neuropathy. DISCHARGE MEDICATIONS: 1. [place] 10 mg p.o. q.4 hours p.r.n. pain. 2. Atenolol 25 mg p.o. daily. 3. Peridex 15 mL b.i.d. 4. Colace 200 mg b.i.d. 5. Neurontin 600 mg p.o. at bedtime eyes. 6. Hyzaar 50/12.5 one a day. 7. She was getting heparin 5000 units subcutaneous q.12 hours. I think we can stop that. 8. Lantus 100 units subcutaneously b.i.d. 9. Icar Plus 1 b.i.d. 10. Zaroxolyn 5 mg a day. We will keep her on the Flagyl 500 mg p.o. q. 8 hours for another 7 days and then stop. 11. Protonix 40 mg a day. cc: Fred Ashby MD
--- NOTE | 2016-12-10 19:54 | PROGRESS NOTE ---
DATE: 12/10/2016 SUBJECTIVE: She feels very well. She thinks her hands are starting to swell a little bit. OBJECTIVE: Vital signs: No fevers. No tachycardia. Blood pressure 137/54. Extremities: Her right adoji-qej-onfc dressing is clean, dry, and intact. She has her immobilizer in place. Abdomen: Soft, nontender. She also states that she continues to have some diarrhea but this is improving. LABORATORY: Glucose is 85 this morning. ASSESSMENT AND PLAN: This is a 45-year-old female status post right hkpjh-qwg-doyf amputation. She developed Clostridium difficile while in the hospital. This seems to be improving with her current medication. Dr. English is following. She has rehab placement but they are waiting for the diarrhea to improve. As far as her wound, it looked good yesterday. So, we are just going to keep her mobilizing, continue physical therapy, and I can see her in the next 1-2 weeks for staple removal as an outpatient and will evaluate her for a prosthetic at that time. cc: Haritha Mendez MD
[2016-12-10] MEDS: NEURONTIN PO SCH (21:53)
[2016-12-11] MEDS: FLAGYL PO SCH ×2 (05:00→14:35)
[2016-12-11] MEDS ORDERED: INSULIN PEN NEEDLES ONE (08:50)
[2016-12-11] MEDS: HYZAAR 50/12.5 MG PO SCH (09:00)
[2016-12-11] MEDS: HEPARIN SUBQ SCH (09:00)
[2016-12-11] MEDS: PERIDEX MT SCH (09:00)
[2016-12-11] MEDS: TENORMIN PO SCH (09:00)
[2016-12-11] MEDS: ICAR-C PLUS PO SCH (09:00)
[2016-12-11] MEDS: PROTONIX PO SCH (09:00)
[2016-12-11] MEDS: ZAROXOLYN PO SCH (09:00)
[2016-12-11] MEDS: LANTUS SUBQ SCH (09:01)
[2016-12-11] MEDS: COLACE PO SCH (09:01)
[2016-12-11] MEDS: NORCO-10 PO PRN ×2 (09:03→14:33)
--- NOTE | 2016-12-11 13:38 | DISCHARGE SUMMARY ---
ADMISSION DATE: 11/29/2016 DISCHARGE DATE: 12/11/2016 SUBJECTIVE: She feels well. No pain. Diarrhea persists but is overall improving. OBJECTIVE: No fevers. Temperature is 97.6 degrees, pulse 60, blood pressure 157/73. Right below- knee amputation site is clean, dry, and intact. There is no cellulitis. There is no drainage. Blood sugar is 141. ASSESSMENT AND PLAN: A 45-year-old female with severe diabetic foot infection status post right below-knee amputation. She, unfortunately, developed Clostridium difficile but there is gradual improvement with p.o. Flagyl. Vancomycin is not an option given allergies. She has a rehab facility that has agreed to accept her for ongoing physical therapy and rehabilitation. I will see her back in the next 1-2 weeks for staple removal as an outpatient. Otherwise, we will defer further management to Dr. English and the hospitalist service. cc: Haritha Mendez MD
[2016-12-11 14:37] VITALS: BP 135/73
--- NOTE | 2016-12-12 14:49 | PROVIDER DOCUMENTATION ---
This chart was entered by Milagros Joaquin Scribe, acting as scribe for Faisal Hearn MD. HPI-Rash/Wound/ReCheck - General Chief Complaint: Sores/Lesions Stated Complaint: diabetic ulcer R foot Time Seen by Provider: 11/29/16 10:09 Source: patient Allergies/Adverse Reactions: Allergies Allergy/AdvReac Type Severity Reaction Status Date / Time vancomycin Allergy Intermediate NAUSEA/VOMI Verified 11/29/16 09:44 TING ciprofloxacin [From Cipro] Allergy Unknown NAUSEA/VOMI Verified 11/29/16 09:44 TING ciprofloxacin HCl * Allergy Unknown NAUSEA/VOMI Verified 11/29/16 09:44 [From Cipro] TING strawberry Allergy Unknown Verified 11/29/16 09:44 Home Medications: Home Medication List Medication Instructions Recorded Confirmed Last Taken Type Gabapentin [Neurontin] 600 mg PO HS 07/24/16 11/29/16 11/29/16 08:00 History Insulin Glargine,Hum.rec.anlog 100 unit SQ BID 07/24/16 11/29/16 11/29/16 08:00 History [Lantus Solostar] Pantoprazole [Protonix] 40 mg PO DAILY #30 11/15/16 11/29/16 11/29/16 08:00 Rx Atenolol 25 mg PO DAILY 11/29/16 11/29/16 11/29/16 08:00 History Insulin Aspart [Novolog] 1 unit SQ DAILY 11/29/16 11/29/16 11/29/16 08:00 History Losartan/Hctz [Hyzaar 50/12.5 mg] 1 tab PO DAILY 11/29/16 11/29/16 11/29/16 08: 00 History Docusate Sodium [Colace] 200 mg PO BID capsule 12/09/16 Unknown Rx Hydrocodone/APAP 10 mg/325 mg 1 each PO Q4H PRN PRN #0 tablet 12/09/16 Unknown Rx [[place]-10] Iron Carbonyl/Vit C/Vit B12/FA 1 each PO BID tablet 12/09/16 Unknown Rx [Icar-C Plus] Metolazone [Zaroxolyn] 5 mg PO DAILY #30 tablet 12/09/16 Unknown Rx Metronidazole [Flagyl] 500 mg PO Q8HR #42 tablet 12/09/16 Unknown Rx Furosemide [Lasix] 40 mg PO DAILY 12/11/16 12/11/16 11/29/16 History - History of Present Illness-Dermatology Nature of Presenting Problem: Pt is 45 y/o F presents to the ED with R foot wound. Pt states hx of diabetic ulcer to R foot. Pt states has an appointment December 02 for amputation of R foot. Pt states only applies pressure to R foot when transferring to the toilet. Pt states was transferring herself to the toilet this am and felt a pop and started to see blood. Pt states receiving antibiotics via PICC line in R arm. Pt states has been receiving antibiotics for 2 weeks. Pt states FSBS was 146 this am. Location: reports: feet (R) Quality: reports: painful Severity: reports: mild Onset/Duration: reports: this morning Timing: reports: still present Context/Associated Symptoms: reports: other (diabetic ulcer to R foot) Locality of Occurance: Home Similar Symptoms Previously?: Yes Recently seen or treated by another doctor?: No Review of Systems - Adult - REVIEW OF SYSTEMS - ADULT Constitutional: denies: chills, fever Eyes: reports: no symptoms reported Ears, Nose, Mouth & Throat: reports: no symptoms reported Cardiovascular: reports: no symptoms reported Respiratory: reports: no symptoms reported Gastrointestinal: reports: no symptoms reported Genitourinary: reports: no symptoms reported Musculoskeletal: reports: no symptoms reported Integumentary: reports: skin sores/ulcer (ulcer to R foot). denies: hives, itching, rash Neurological: reports: no symptoms reported Psychiatric: reports: no symptoms reported Endocrine: reports: no symptoms reported Hematologic/Lymphatic: reports: no symptoms reported Allergic/Immunologic: reports: no symptoms reported All Other Systems: Reviewed and Negative Past History - Adult - PAST MEDICAL HISTORY-ADULT Review of Records: reports: Nursing Assessment Review, Medications Reviewed, Social history reviewed & non-contributory. Major Childhood Illnesses: reports: denies history Cardiovascular: reports: CHF, HTN, hyperlipidemia Respiratory: reports: asthma, COPD, sleep apnea Gastrointestinal: reports: GERD Obstetrical/Gynecological: reports: denies history Genitourinary: reports: kidney disease Musculoskeletal: reports: chronic pain Neurological: reports: denies history Endocrine/Immune: reports: Diabetes Other Conditions: reports: denies history - PRIOR SURGERIES/PROCEDURES Surgical/Procedure History: reports: hysterectomy, BTL, - IMMUNIZATION STATUS Childhood Immunizations: See Nurse Assessment Flu Vaccine: See Nurse Assessment - FAMILY HISTORY Family History: reviewed, not pertinent - SOCIAL HISTORY Smoking: denies Substance Use: denies Living Situation: family Physical Exam-General - PHYSICAL EXAM-ADULT Initial Vital Signs Reviewed: Yes - CONSTITUTIONAL General Appearance: alert, no apparent distress, obese - EYES Eyes: PERRL/EOMI, pink conjunctivae - HEAD, EARS, NOSE, MOUTH & THROAT HENMT: normocephalic/atraumatic, moist mucous membranes, normal ENT inspection - NECK Neck: non-tender, full range of motion, supple, normal inspection - RESPIRATORY Respiratory: chest non-tender, lungs clear, normal breath sounds - CARDIOVASCULAR Cardiovascular: normal peripheral pulses, regular rate, rhythm - GASTROINTESTINAL (ABDOMEN) Abdominal Exam: normal bowel sounds, non tender, soft - LYMPHATIC Lymphatic: no adenopathy - MUSCULOSKELETAL Back Exam: normal inspection, no CVA tenderness, no vertebral tenderness Extremity: normal range of motion, no calf tenderness. negative: erythema, swelling - SKIN Integumentary: normal turgor, decubitus (ulcer to R foot), other (actively bleeding from R foot) - NEUROLOGIC Neurologic: grossly normal - PSYCHIATRIC Psych/Mental Status: normal mood/affect, oriented x 3 Progress - PLAN OF CARE/RESULTS Progress/Plan/Lab Results: Orders Category Date Time Status Admit - [facility] - [facility] Routine AdmDCTranf 11/29/16 14:34 Ordered FSBS/Accucheck Result AC + HS Care 11/29/16 14:34 Active Intake and Output-Strict ORDERED Care 11/29/16 14:34 Active Nursing- MD Consult Request Care 11/29/16 14:34 Completed Transfuse .Give-Transfuse Care 11/29/16 12:01 Completed Vital Signs Order Q 8-HR ASSESS Care 11/29/16 14:34 Active Physician/Provider Consults Routine Cons 11/29/16 14:34 Ordered Physician/Provider Consults Routine Cons 11/29/16 14:34 Ordered Wound Care/ET Consult DIRECTED Cons 11/29/16 14:34 Ordered Diabetic Diet Diet 11/29/16 11:03 Completed FOOT COMPLETE RIGHT [RAD] Stat Exams 11/29/16 10:57 Completed BASIC METABOLIC PANEL [CHEM] DAILY Lab 11/30/16 09:00 Completed BASIC METABOLIC PANEL [CHEM] DAILY Lab 12/01/16 06:15 Completed BASIC METABOLIC PANEL [CHEM] DAILY Lab 12/02/16 06:07 Completed BLOOD CULTURE [BLDCUL] Stat Lab 11/29/16 11:52 Completed CBC WITH ELECTRONIC DIFF [HEME] Stat Lab 11/29/16 10:33 Completed CBC WITH NO DIFF [HEME] DAILY Lab 11/30/16 09:00 Completed CBC WITH NO DIFF [HEME] DAILY Lab 12/01/16 06:15 Completed CBC WITH NO DIFF [HEME] DAILY Lab 12/02/16 06:07 Completed COMPREHENSIVE METABOLIC PANEL [CHEM] Stat Lab 11/29/16 10:33 Completed LACTATE, PLASMA [CHEM] Stat Lab 11/29/16 11:50 Completed LRPC (RED CELLS) [BBK] Stat Lab 11/29/16 10:33 Completed MAGNESIUM [CHEM] DAILY Lab 12/01/16 06:15 Completed MAGNESIUM [CHEM] DAILY Lab 12/02/16 06:07 Completed MAGNESIUM [CHEM] DAILY Lab 12/03/16 05:25 Completed PREALBUMIN [CHEM] Timed Lab 11/29/16 10:33 Completed PROTIME WITH INR [COAG] Stat Lab 11/29/16 10:33 Completed PTT [COAG] Stat Lab 11/29/16 10:33 Completed TYPE & SCREEN [BBK] Stat Lab 11/29/16 10:33 Completed WOUND CULTURE INC GRAM STAIN [RM] Routine Lab 11/29/16 18:49 Completed 0.9% Sodium Chloride Inj [Ns] 1,000 ml Med 11/29/16 12:48 Discontinued .ROUTE As Directed Atenolol [Tenormin] Med 11/30/16 09:00 Discontinued 25 mg PO DAILY Furosemide [Lasix] Med 11/29/16 21:00 Discontinued 40 mg PO BID Gabapentin [Neurontin] Med 11/29/16 21:00 Discontinued 600 mg PO HS Heparin Med 11/29/16 21:00 Discontinued 5,000 unit SUBQ Q12HR Insulin Glargine [Lantus] Med 11/29/16 21:00 Discontinued 100 unit SUBQ BID Losartan/Hctz [Hyzaar 50/12.5 mg] Med 11/30/16 09:00 Discontinued 1 each PO DAILY Metolazone [Zaroxolyn] Med 11/30/16 09:00 Discontinued 5 mg PO DAILY Pantoprazole [Protonix] Med 11/30/16 09:00 Discontinued 40 mg PO DAILY Transfer/Admit Order [TRANSFER] Routine Transfer 11/29/16 11:01 Completed Result Diagrams: 12/06/16 05:45 12/08/16 10:10 - XRAY 1 XRAY: Right XRAY Study: Foot Impression: Abnormal (cellulitis with soft tissue gas particularly over the heel and lateral foot. Fracture and ostemyelitis of the calcaneus. Chronic changes in the fifth metatarsal, cuboid and third cuneiform which may be related to chronic arthritic changes and previous osteomyelitis.) - CONSULTS/PCP/HOSPITALIST Notification #1 *Consult/PCP/Hospitalist*: Dr. Castro Mendez Time Discussed: 10:46 Reason/Comments: Dr. Hearn consults with Dr. Mendez about Pt Consult Disposition: Will see in ED #2 Consult: ARLENE Putnam Time Discussed: 10:49 Reason/Comments: Dr. Hearn consulted with [place] about admit of PT Consult Disposition: other Departure - Departure Date of Disposition Decision: 11/29/16 Time of Disposition Decision: 11:00 DIAGNOSIS: Gangrene of right foot Disposition: ADMITTED INPATIENT 09 Certified Medical Emergency: Emergent Condition: Stable - Critical Care Note This patient required my direct & personal management of CC.: No This chart was documented by the indicated scribe, (Milagros Joaquin Scribe) and accurately reflects the services I performed and decisions made by me, Faisal Hearn MD, as attested by the provider's signature.
== END 2016-12-11 16:58 ==
LOC: SUPCPDRO → ED 08:48 → 3N 14:12 → SUATTDRO 14:12 → 4N 12-02 17:30
PROVIDERS: ATTEND Emergency Medicine